=== PATIENT | female | born 1975 | race Caucasian/White ===

== ENCOUNTER 2021-03-15 10:47 | Inpatient (IN) | payer SELFPAY ==
[2021-03-15] MEDS ORDERED: Dexamethasone 10 MG/ML SDV IVPUSH ONE (11:10)
--- NOTE | 2021-03-15 11:16 | EDM.PDOC ---
ED HPI GENERAL MEDICAL PROBLEM - General Chief Complaint: Respiratory Problem Stated Complaint: covid + SOB Time Seen by Provider: 03/15/21 10:52 Source of Information: Reports: Patient History Limitations: Reports: No Limitations - History of Present Illness INITIAL COMMENTS - FREE TEXT/NARRATIVE: Patient is a 45-year-old female who tested positive for Covid about 7 days ago p resents today for increasing shortness of breath and fatigue. Says she is she is more short of breath now she is moving around outside appointment if she sitting down she is also short of breath. Denies any chest pain or cough states she had decreased p.o. intake but no nausea vomiting denies abdominal pain leg swelling. Patient states she quit smoking 3 years ago. She presented and was satting in mid 60% on room air with placed on nasal cannula and got about 90% interested nonrebreather and oxygen sat improved. - Related Data Allergies Allergy/AdvReac Type Severity Reaction Status Date / Time No Known Allergies Allergy Verified 03/15/21 11:10 Home Meds: Home Meds . [No Known Home Meds] 03/15/21 [History] ED ROS GENERAL - Review of Systems Review Of Systems: See Below Constitutional: Reports: No Symptoms HEENT: Reports: No Symptoms Respiratory: Reports: Shortness of Breath Cardiovascular: Reports: No Symptoms Endocrine: Reports: No Symptoms GI/Abdominal: Reports: No Symptoms : Reports: No Symptoms Musculoskeletal: Reports: No Symptoms Skin: Reports: No Symptoms Neurological: Reports: No Symptoms Psychiatric: Reports: No Symptoms Hematologic/Lymphatic: Reports: No Symptoms Immunologic: Reports: No Symptoms ED EXAM, GENERAL - Physical Exam Exam: See Below Exam Limited By: No Limitations General Appearance: Alert, WD/WN, No Apparent Distress Eye Exam: Bilateral Eye: EOMI, PERRL Head: Atraumatic, Normocephalic Neck: Normal Inspection Respiratory/Chest: Rhonchi, Accessory Muscle Use Cardiovascular: Normal Peripheral Pulses GI/Abdominal: Normal Bowel Sounds, Soft, Non-Tender Neurological: Alert, Oriented, Normal Cognition, Normal Gait Course - Vital Signs Last Recorded V/S: Last Vital Signs Temp 97.9 F 03/15/21 11:03 Pulse 67 03/15/21 11:03 Resp 22 H 03/15/21 11:03 BP 136/64 03/15/21 11:03 Pulse Ox 96 03/15/21 11:04 - Orders/Labs/Meds Orders: Active Orders 24 hr Category Date Time Status Ang Chest [CT] Stat Exams 03/15/21 12:31 Taken Medication Orders Remdesivir 200 mg/ Sodium (Chloride) 250 mls @ 250 mls/hr IV ONETIME ONE Stop: 03/15/21 13:59 Labs: Laboratory Tests 03/15/21 03/15/21 03/15/21 Range/Units 11:41 11:46 11:46 WBC 5.47 (4.0-11.0) K/uL RBC 4.25 L (4.30-5.90) M/uL Hgb 12.4 (12.0-16.0) g/dL Hct 36.7 (36.0-46.0) % MCV 86.4 (80.0-98.0) fL MCH 29.2 (27.0-32.0) pg MCHC 33.8 (31.0-37.0) g/dL RDW Std Deviation 44.9 (28.0-62.0) fl RDW Coeff of Sandeep 14 (11.0-15.0) % Plt Count 173 (150-400) K/uL MPV 9.30 (7.40-12.00) fL Neut % (Auto) 78.4 (48.0-80.0) % Lymph % (Auto) 17.9 (16.0-40.0) % Schleicher % (Auto) 3.5 (0.0-15.0) % Eos % (Auto) 0.0 (0.0-7.0) % Baso % (Auto) 0.2 (0.0-1.5) % Neut # (Auto) 4.3 (1.4-5.7) K/uL Lymph # (Auto) 1.0 (0.6-2.4) K/uL Schleicher # (Auto) 0.2 (0.0-0.8) K/uL Eos # (Auto) 0.0 (0.0-0.7) K/uL Baso # (Auto) 0.0 (0.0-0.1) K/uL Nucleated RBC % 0.0 /100WBC Nucleated RBCs # 0 K/uL D-Dimer, Quantitative 0.73 H (0.0-0.50) mg/L FEU Sodium (136-145) mmol/L Potassium (3.5-5.1) mmol/L Chloride (98-107) mmol/L Carbon Dioxide (21.0-32.0) mmol/L BUN (7.0-18.0) mg/dL Creatinine (0.6-1.0) mg/dL Est Cr Clr Drug Dosing mL/min Estimated GFR (MDRD) ml/min Glucose (74-106) mg/dL Calcium (8.5-10.1) mg/dL Phosphorus (2.6-4.7) mg/dL Magnesium (1.8-2.4) mg/dL Total Bilirubin (0.2-1.0) mg/dL AST (15-37) IU/L ALT (14-63) IU/L Alkaline Phosphatase (46-116) U/L Troponin I (0.000-0.056) ng/mL C-Reactive Protein (0.00-0.90) mg/dL Total Protein (6.4-8.2) g/dL Albumin (3.4-5.0) g/dL Globulin (2.6-4.0) g/dL Albumin/Globulin Ratio (0.9-1.6) Lipase (73-393) U/L SARS-CoV-2 RNA (CAIN) POSITIVE H (NEGATIVE) 03/15/21 Range/Units 11:46 WBC (4.0-11.0) K/uL RBC (4.30-5.90) M/uL Hgb (12.0-16.0) g/dL Hct (36.0-46.0) % MCV (80.0-98.0) fL MCH (27.0-32.0) pg MCHC (31.0-37.0) g/dL RDW Std Deviation (28.0-62.0) fl RDW Coeff of Sandeep (11.0-15.0) % Plt Count (150-400) K/uL MPV (7.40-12.00) fL Neut % (Auto) (48.0-80.0) % Lymph % (Auto) (16.0-40.0) % Schleicher % (Auto) (0.0-15.0) % Eos % (Auto) (0.0-7.0) % Baso % (Auto) (0.0-1.5) % Neut # (Auto) (1.4-5.7) K/uL Lymph # (Auto) (0.6-2.4) K/uL Schleicher # (Auto) (0.0-0.8) K/uL Eos # (Auto) (0.0-0.7) K/uL Baso # (Auto) (0.0-0.1) K/uL Nucleated RBC % /100WBC Nucleated RBCs # K/uL D-Dimer, Quantitative (0.0-0.50) mg/L FEU Sodium 132 L (136-145) mmol/L Potassium 3.8 (3.5-5.1) mmol/L Chloride 95 L (98-107) mmol/L Carbon Dioxide 25.8 (21.0-32.0) mmol/L BUN 8 (7.0-18.0) mg/dL Creatinine 0.7 (0.6-1.0) mg/dL Est Cr Clr Drug Dosing 77.39 mL/min Estimated GFR (MDRD) > 60.0 ml/min Glucose 111 H (74-106) mg/dL Calcium 7.7 L (8.5-10.1) mg/dL Phosphorus 3.6 (2.6-4.7) mg/dL Magnesium 2.0 (1.8-2.4) mg/dL Total Bilirubin 0.6 (0.2-1.0) mg/dL AST 73 H (15-37) IU/L ALT 60 (14-63) IU/L Alkaline Phosphatase 110 (46-116) U/L Troponin I < 0.050 (0.000-0.056) ng/mL C-Reactive Protein 11.90 H (0.00-0.90) mg/dL Total Protein 7.4 (6.4-8.2) g/dL Albumin 2.9 L (3.4-5.0) g/dL Globulin 4.5 H (2.6-4.0) g/dL Albumin/Globulin Ratio 0.6 L (0.9-1.6) Lipase 125 (73-393) U/L SARS-CoV-2 RNA (CAIN) (NEGATIVE) Meds: Medications Generic Name Dose Route Start Last Admin Trade Name Freq PRN Reason Stop Dose Admin Remdesivir 200 mg/ Sodium 250 mls @ 250 mls/hr 03/15/21 13:00 Chloride IV 03/15/21 13:59 ONETIME ONE Discontinued Medications Generic Name Dose Route Start Last Admin Trade Name Bianka PRN Reason Stop Dose Admin Dexamethasone 10 mg 03/15/21 11:10 03/15/21 11:35 Dexamethasone 10 Mg/Ml Sdv IVPUSH 03/15/21 11:11 10 mg ONETIME ONE Administration Iopamidol 100 ml 03/15/21 13:28 03/15/21 13:30 Iopamidol 755 Mg/Ml 500 Ml Multipack Bottle IVPUSH 03/15/21 13:29 100 ml ONETIME ONE Administration - Re-Assessments/Exams Free Text/Narrative Re-Assessment/Exam: 03/15/21 12:50 1 O2 sats improved on the nonrebreather. Patient given steroids and redoes Advair and will be admitted to the hospital for further care. 03/15/21 13:53 Patient will be given remdesivir patient's pain will does appear is in the wrist patient is a septic to take the medication. 03/15/21 13:53 She also started on high flow nasal cannula and satting over 95%. CT be completed results still pending will be taken to the floor. Departure - Departure Time of Disposition: 12:50 Disposition: Admitted As Inpatient 67 Condition: Good Clinical Impression: COVID, Hypoxia - Discharge Information *PRESCRIPTION DRUG MONITORING PROGRAM REVIEWED*: Not Applicable *COPY OF PRESCRIPTION DRUG MONITORING REPORT IN PATIENT KEMI: Not Applicable Critical Care Note - Critical Care Note Total Time (mins): 55 Comments: Critical Care Procedure Note Authorized and Performed by: Dr. Sanchez Total critical care time: Approximately Due to a high probability of clinically significant, life threatening deterioration, the patient required my highest level of preparedness to intervene emergently and I personally spent this critical care time directly and personally managing the patient. This critical care time included obtaining a history; examining the patient; pulse oximetry; ordering and review of studies; arranging urgent treatment with development of a management plan; evaluation of patient's response to treatment; frequent reassessment; and, discussions with other providers. This critical care time was performed to assess and manage the high probability of imminent, life-threatening deterioration that could result in multi-organ failure. It was exclusive of separately billable procedures and treating other patients and teaching time. Sepsis Event Note (ED) - Focused Exam Vital Signs: Vital Signs Temp Pulse Resp BP Pulse Ox 03/15/21 11:04 96 03/15/21 11:03 97.9 F 67 22 H 136/64 88 L - My Orders Last 24 Hours: My Active Orders 03/15/21 12:31 Ang Chest [CT] Stat - Assessment/Plan Last 24 Hours: My Active Orders 03/15/21 12:31 Ang Chest [CT] Stat Plan: Patient is a 45-year-old female who presents for increasing shortness of breath. Patient tested positive Covid a few days ago and symptoms have been worsening. Patient is satting 60% on room air will place on nonrebreather and likely admit will give Decadron labs x-ray and reassess.
--- NOTE | 2021-03-15 12:25 | CR ---
INDICATION: Hypoxia TECHNIQUE: Chest 1 view COMPARISON: None FINDINGS: Cardiovascular and mediastinum: Heart size and vasculature are normal in caliber and appearance. Lungs and pleural spaces: Diffuse bilateral ill-defined pulmonary infiltrates present. No significant effusion and no pneumothorax. Bones and soft tissues: No significant findings. IMPRESSION: Severe diffuse bilateral pneumonia and/or pulmonary edema. COVID pneumonitis is not definite but possible. Dictated by Edu Barclay MD @ 03/15/2021 12:25:[address] Edu Barclay @ Mar 15 2021 12:25PM
[2021-03-15 12:29] LABS: BLOOD UREA NITROGEN,BUN 8 mg/dL (7.0-18.0); CARBON DIOXIDE,CO2 25.8 mmol/L (21.0-32.0); CHLORIDE,CL 95 mmol/L (98-107); GLUCOSE RANDOM 111 mg/dL (74-106); LIPASE 125 U/L (73-393); POTASSIUM,K 3.8 mmol/L (3.5-5.1); SODIUM,NA 132 mmol/L (136-145)
[2021-03-15] MEDS ORDERED: REMDESIVIR 200 MG in Sodium Chloride 0.9% 250 ML IV ONE ×2 (12:53→13:00)
[2021-03-15] MEDS ORDERED: Iopamidol 755 MG/ML 500 ML Multipack Bottle IVPUSH ONE (13:28)
[2021-03-15] MEDS ORDERED: Ondansetron 4 MG/2 ML SDV IVPUSH PRN (14:00)
[2021-03-15 14:01] LABS: BLOOD UREA NITROGEN,BUN 9 mg/dL (7.0-18.0); CARBON DIOXIDE,CO2 25.5 mmol/L (21.0-32.0); CHLORIDE,CL 97 mmol/L (98-107); GLUCOSE RANDOM 121 mg/dL (74-106); POTASSIUM,K 4.1 mmol/L (3.5-5.1); SODIUM,NA 133 mmol/L (136-145)
--- NOTE | 2021-03-15 14:03 | CT ---
INDICATION: Elevated D-dimer. Dyspnea. COVID-19 positive. TECHNIQUE: CT chest PE was acquired with 100 cc Isovue 370 IV contrast. COMPARISON: None. FINDINGS: Heart and vasculature: Contrast opacification of the pulmonary arterial tree is adequate. No sign of pulmonary embolism. Heart size is normal. Thoracic aorta and pulmonary artery are normal in caliber. Lungs and pleural: There are large diffuse bilateral ground-glass infiltrates. No pleural effusions, pleural thickening, or pneumothorax. Lymph nodes/mediastinum: No mediastinal, hilar, or axillary adenopathy. Chest wall: No masses. Upper abdomen: Normal. Bones: Unremarkable for age. IMPRESSION: 1. No pulmonary embolism. 2. Severe COVID-19 pneumonitis. Please note that all CT scans at this facility use dose modulation, iterative reconstruction, and/or weight-based dosing when appropriate to reduce radiation dose to as low as reasonably achievable. Dictated by Edu Barclay MD @ 03/15/2021 2:01:[address] Edu Barclay @ Mar 15 2021 2:01PM
[2021-03-15] MEDS ORDERED: Sodium Chloride 0.9% 2.5 ML Syringe FLUSH PRN (14:36)
--- NOTE | 2021-03-15 14:43 | PCM.HP.2 ---
H&P History of Present Illness - General Date of Service: 03/15/21 Admit Problem/Dx: Admission Diagnosis/Problem Admission Diagnosis/Problem Hypoxia Source of Information: Patient History Limitations: Reports: No Limitations - History of Present Illness Initial Comments - Free Text/Narative: This 45-year-old female with past medical history of perforated gastric ulcer with subsequent abdominal surgeries including mesh repair and hernia repair along with morbid obesity presented to the ER today with increasing shortness of breath and fatigue. She reports she tested positive for COVID-19 approximately 7 days ago. She reports that initially the illness started with sore throat sinus congestion and otherwise just not feeling well. She reports that she has progressively worsened and becoming more more short of breath and that moving outside is extremely difficult due to shortness of breath. She denies any chest pain reports intermittent cough with no sputum production. She reports she is not eating or drinking well due to loss of smell and taste and appetite. She denies any nausea or vomiting no abdominal pain. She denies any extremity swelling or pain. She reports intermittent fevers and chills. She denies being vaccinated for COVID-19. She reports quit smoking approximately 3 years ago denies any alcohol use and no recreational drug use. In the ER, she was noted to be satting 60% on room air on arrival she was placed on nasal cannula and sats slowly increased to 70 and 80%. She was then increased to nonrebreather and oxygen saturations finally reached above 90%. Lab work reveals no leukocytosis hemoglobin 12.4 platelets 173,000. D-dimer mildly elevated at 0.73. Sodium 132 chloride 95 BUN and creatinine 8 and 0.7 respectively. Glucose 111 AST 73 ALT 60 alk phos 110 we will monitor these closely during treatment. Troponin negative CRP 11.9 COVID-19 swab positive. Chest x-ray obtained in the ER which reveals severe diffuse bilateral pneumonia and/or pulmonary edema Covid pneumonitis is not definite but possible CT angio obtained due to mildly elevated D-dimer and Covid positive no pulmonary embolism noted severe COVID-19 pneumonitis noted. Patient was treated with dexamethasone 10 mg IV in the ER along with remdesivir 200 mg. Patient will be admitted inpatient for acute hypoxic respiratory failure COVID-19 and viral pneumonia. - Related Data Allergies/Adverse Reactions: Allergies Allergy/AdvReac Type Severity Reaction Status Date / Time No Known Allergies Allergy Verified 03/15/21 11:10 Home Medications: Home Meds . [No Known Home Meds] 03/15/21 [History] Past Medical History HEENT History: Reports: None Cardiovascular History: Reports: None. Denies: Afib, Blood Clots/VTE/DVT, CAD, High Cholesterol, ND Respiratory History: Reports: None. Denies: Asthma, COPD Gastrointestinal History: Reports: PUD Genitourinary History: Reports: None [employer] History: Reports: None Musculoskeletal History: Reports: None Neurological History: Reports: None. 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 Dermatologic History: Reports: None - Infectious Disease History Infectious Disease History: Reports: None - Past Surgical History Head Surgeries/Procedures: Reports: None HEENT Surgical History: Reports: None GI Surgical History: Reports: Other (See Below) (Perforated gastric ulcer with subsequent hernia repairs x3 multiple mesh placement and final removal.) Female Surgical History: Reports: Section (x3) Social & Family History - Family History Family Medical History: No Pertinent Family History - Tobacco Use Tobacco Use Status *Q: Former Tobacco User Used Tobacco, but Quit: Yes Month/Year Tobacco Last Used: 4 years - Caffeine Use Caffeine Use: Reports: None - Alcohol Use Alcohol Use History: No - Recreational Drug Use Recreational Drug Use: No H&P Review of Systems - Review of Systems: Review Of Systems: See Below General: Reports: Chills, Malaise, Weakness, Fatigue, Decreased Appetite HEENT: Reports: Headaches, Sore Throat Pulmonary: Reports: Shortness of Breath Cardiovascular: Reports: Dyspnea on Exertion. Denies: Chest Pain Gastrointestinal: Reports: Decreased Appetite. Denies: Abdominal Pain, Nausea, Vomiting Genitourinary: Reports: No Symptoms. Denies: Dysuria, Frequency, Burning Musculoskeletal: Reports: No Symptoms Skin: Reports: No Symptoms Psychiatric: Reports: No Symptoms Neurological: Reports: No Symptoms Hematologic/Lymphatic: Reports: No Symptoms Immunologic: Reports: No Symptoms Exam - Exam Exam: See Below - Vital Signs Vital Signs: Last Vital Signs Temp 97.9 F 03/15/21 11:03 Pulse 67 03/15/21 11:03 Resp 22 H 03/15/21 11:03 BP 136/64 03/15/21 11:03 Pulse Ox 96 03/15/21 11:04 Weight: 160.572 kg - Exam Quality Assessment: Supplemental Oxygen, DVT Prophylaxis General: Alert, Oriented, Cooperative HEENT: Conjunctiva Clear, Mucosa Moist & Sallis, Posterior Pharynx Clear Lungs: Decreased Breath Sounds, Crackles. No: Normal Respiratory Effort (Dyspnea noted on speech and exertion) Cardiovascular: Regular Rate, Regular Rhythm, Normal S1, Normal S2. No: Systolic Murmur GI/Abdominal Exam: Normal Bowel Sounds, Soft, Non-Tender, Other (Large obese abdomen with hernias present makes difficult assessment) Back Exam: Normal Inspection, Full Range of Motion Extremities: Normal Inspection, Normal Range of Motion, Non-Tender, Pedal Edema (+2 edema to lower extremities reports this is baseline) Skin: Warm, Dry Neuro Extensive - Mental Status: Alert, Oriented x3 Neuro Extensive - Motor, Sensory, Reflexes: CN II-XII Intact Psychiatric: Alert, Normal Affect, Normal Mood - Patient Data Lab Results Last 24 hrs: Laboratory Results - last 24 hr 03/15/21 03/15/21 03/15/21 Range/Units 11:41 11:46 11:46 WBC 5.47 (4.0-11.0) K/uL RBC 4.25 L (4.30-5.90) M/uL Hgb 12.4 (12.0-16.0) g/dL Hct 36.7 (36.0-46.0) % MCV 86.4 (80.0-98.0) fL MCH 29.2 (27.0-32.0) pg MCHC 33.8 (31.0-37.0) g/dL RDW Std Deviation 44.9 (28.0-62.0) fl RDW Coeff of Sandeep 14 (11.0-15.0) % Plt Count 173 (150-400) K/uL MPV 9.30 (7.40-12.00) fL Neut % (Auto) 78.4 (48.0-80.0) % Lymph % (Auto) 17.9 (16.0-40.0) % [place] % (Auto) 3.5 (0.0-15.0) % Eos % (Auto) 0.0 (0.0-7.0) % Baso % (Auto) 0.2 (0.0-1.5) % Neut # (Auto) 4.3 (1.4-5.7) K/uL Lymph # (Auto) 1.0 (0.6-2.4) K/uL [place] # (Auto) 0.2 (0.0-0.8) K/uL Eos # (Auto) 0.0 (0.0-0.7) K/uL Baso # (Auto) 0.0 (0.0-0.1) K/uL Nucleated RBC % 0.0 /100WBC Nucleated RBCs # 0 K/uL D-Dimer, Quantitative 0.73 H (0.0-0.50) mg/L FEU Sodium (136-145) mmol/L Potassium (3.5-5.1) mmol/L Chloride (98-107) mmol/L Carbon Dioxide (21.0-32.0) mmol/L BUN (7.0-18.0) mg/dL Creatinine (0.6-1.0) mg/dL Est Cr Clr Drug Dosing mL/min Estimated GFR (MDRD) ml/min Glucose (74-106) mg/dL Calcium (8.5-10.1) mg/dL Phosphorus (2.6-4.7) mg/dL Magnesium (1.8-2.4) mg/dL Total Bilirubin (0.2-1.0) mg/dL Direct Bilirubin (0.0-0.5) mg/dL AST (15-37) IU/L ALT (14-63) IU/L Alkaline Phosphatase (46-116) U/L Troponin I (0.000-0.056) ng/mL C-Reactive Protein (0.00-0.90) mg/dL Total Protein (6.4-8.2) g/dL Albumin (3.4-5.0) g/dL Globulin (2.6-4.0) g/dL Albumin/Globulin Ratio (0.9-1.6) Lipase (73-393) U/L SARS-CoV-2 RNA (CAIN) POSITIVE H (NEGATIVE) 03/15/21 03/15/21 Range/Units 11:46 13:34 WBC (4.0-11.0) K/uL RBC (4.30-5.90) M/uL Hgb (12.0-16.0) g/dL Hct (36.0-46.0) % MCV (80.0-98.0) fL MCH (27.0-32.0) pg MCHC (31.0-37.0) g/dL RDW Std Deviation (28.0-62.0) fl RDW Coeff of Sandeep (11.0-15.0) % Plt Count (150-400) K/uL MPV (7.40-12.00) fL Neut % (Auto) (48.0-80.0) % Lymph % (Auto) (16.0-40.0) % [place] % (Auto) (0.0-15.0) % Eos % (Auto) (0.0-7.0) % Baso % (Auto) (0.0-1.5) % Neut # (Auto) (1.4-5.7) K/uL Lymph # (Auto) (0.6-2.4) K/uL [place] # (Auto) (0.0-0.8) K/uL Eos # (Auto) (0.0-0.7) K/uL Baso # (Auto) (0.0-0.1) K/uL Nucleated RBC % /100WBC Nucleated RBCs # K/uL D-Dimer, Quantitative (0.0-0.50) mg/L FEU Sodium 132 L 133 L (136-145) mmol/L Potassium 3.8 4.1 (3.5-5.1) mmol/L Chloride 95 L 97 L (98-107) mmol/L Carbon Dioxide 25.8 25.5 (21.0-32.0) mmol/L BUN 8 9 (7.0-18.0) mg/dL Creatinine 0.7 0.8 (0.6-1.0) mg/dL Est Cr Clr Drug Dosing 77.39 67.72 mL/min Estimated GFR (MDRD) > 60.0 > 60.0 ml/min Glucose 111 H 121 H (74-106) mg/dL Calcium 7.7 L 8.0 L (8.5-10.1) mg/dL Phosphorus 3.6 (2.6-4.7) mg/dL Magnesium 2.0 (1.8-2.4) mg/dL Total Bilirubin 0.6 0.7 (0.2-1.0) mg/dL Direct Bilirubin 0.20 (0.0-0.5) mg/dL AST 73 H 76 H (15-37) IU/L ALT 60 62 (14-63) IU/L Alkaline Phosphatase 110 122 H (46-116) U/L Troponin I < 0.050 (0.000-0.056) ng/mL C-Reactive Protein 11.90 H (0.00-0.90) mg/dL Total Protein 7.4 7.9 (6.4-8.2) g/dL Albumin 2.9 L 3.1 L (3.4-5.0) g/dL Globulin 4.5 H 4.8 H (2.6-4.0) g/dL Albumin/Globulin Ratio 0.6 L 0.7 L (0.9-1.6) Lipase 125 (73-393) U/L SARS-CoV-2 RNA (CAIN) (NEGATIVE) Result Diagrams: 03/15/21 11:46 03/15/21 13:34 Sepsis Event Note - Focused Exam Vital Signs: Vital Signs Temp Pulse Resp BP Pulse Ox 03/15/21 11:04 96 03/15/21 11:03 97.9 F 67 22 H 136/64 88 L - Problem List (1) Acute respiratory failure with hypoxia SNOMED Code(s): 27209502, 485615316 ICD Code: J96.01 - ACUTE RESPIRATORY FAILURE WITH HYPOXIA Status: Acute Current Visit: Yes (2) COVID-19 SNOMED Code(s): 051954157 ICD Code: U07.1 - COVID-19 Status: Acute Current Visit: Yes (3) Viral pneumonia SNOMED Code(s): 15574305 ICD Code: J12.9 - VIRAL PNEUMONIA, UNSPECIFIED Status: Acute Current Visi t: Yes (4) Morbid obesity with BMI of 60.0-69.9, adult SNOMED Code(s): 036838701, 73523078887429 ICD Code: E66.01 - MORBID (SEVERE) OBESITY DUE TO EXCESS CALORIES; Z68.44 - BODY MASS INDEX [BMI] 60.0-69.9, ADULT Status: Chronic Current Visit: Yes (5) History of tobacco use SNOMED Code(s): 619824014 ICD Code: Z87.891 - PERSONAL HISTORY OF NICOTINE DEPENDENCE Status: Chronic Current Visit: Yes Problem List Initiated/Reviewed/Updated: Yes Orders Last 24hrs: Active Orders 24 hr Category Date Time Status Patient Status [ADT] Routine ADT 03/15/21 12:49 Active Communication Order [RC] ROUTINE Care 03/15/21 14:41 Active Intake and Output [RC] QSHIFT Care 03/15/21 14:36 Active Oxygen Therapy [RC] PRN Care 03/15/21 14:36 Active Pulse Oximetry [RC] CONTINUOUS Care 03/15/21 14:36 Active RT Incentive Spirometry [RC] Q1HWA Care 03/15/21 14:39 Active RT Post Treatment Assessment [RC] Click to Edit Care 03/15/21 14:39 Active RT Pre-Treatment Assessment [RC] Click to Edit Care 03/15/21 14:39 Active Up With Assistance [RC] ASDIRECTED Care 03/15/21 14:36 Active VTE/DVT Education [RC] PER UNIT ROUTINE Care 03/15/21 14:36 Active Vital Signs [RC] Q4H Care 03/15/21 14:36 Active Regular Diet [DIET] Diet 03/15/21 Lunch Active CBC WITH AUTO DIFF [HEME] AM Lab 03/16/21 05:11 Ordered COMPREHENSIVE METABOLIC PN,CMP [CHEM] AM Lab 03/16/21 05:11 Ordered Acetaminophen [TylenoL] Med 03/15/21 14:36 Ordered 650 mg PO Q4H PRN Albuterol/Ipratropium [Combivent Respimat] Med 03/15/21 18:00 Ordered See Dose Instructions INH Q4HRRT Enoxaparin [Lovenox] Med 03/15/21 21:00 Ordered 40 mg SUBCUT Q12HR Non-Formulary Medication [NF Drug] Med 03/15/21 14:45 Ordered 1 each PO DAILY Ondansetron [Zofran] Med 03/15/21 14:36 Ordered 4 mg IVPUSH Q4H PRN Remdesivir 100 mg Med 03/16/21 13:00 Ordered Sodium Chloride 0.9% [Normal Saline] 100 ml IV Q24H Sodium Chloride 0.9% [Saline Flush] Med 03/15/21 14:36 Ordered 2.5 ml FLUSH ASDIRECTED PRN dexAMETHasone Med 03/16/21 09:00 Ordered 6 mg PO DAILY RT Oxygen High Flow [RESPCARE] Stat Oth 03/15/21 12:51 Active Saline Lock Insert [OM.PC] Routine Oth 03/15/21 14:36 Ordered Resuscitation Status Routine Resus Stat 03/15/21 14:36 Ordered Medication Orders Acetaminophen (Acetaminophen 325 Mg Tab) 650 mg PO Q4H PRN PRN Reason: Pain (Mild 1-3)/fever Albuterol/Ipratropium (Albuterol/Ipratropium 4 Gm Inhalation [place]) 0 gm INH Q4HRRT [place] Dexamethasone (Dexamethasone 4 Mg Tab) 6 mg PO DAILY [place] Enoxaparin Sodium (Enoxaparin 40 Mg/0.4 Ml Syringe) 40 mg SUBCUT Q12HR [place] Remdesivir 100 mg/ Sodium (Chloride) 100 mls @ 100 mls/hr IV Q24H [place] Stop: 03/19/21 13:59 Non-Formulary Medication (Non-Formulary Medication 1 Each) 1 each PO DAILY [place] Ondansetron HCl (Ondansetron 4 Mg/2 Ml Sdv) 4 mg IVPUSH Q4H PRN PRN Reason: Nausea Sodium Chloride (Sodium Chloride 0.9% 2.5 Ml Syringe) 2.5 ml FLUSH ASDIRECTED PRN PRN Reason: Keep Vein Open Assessment/Plan Comment:: This 45-year-old female admitted with acute hypoxic respiratory failure, COVID- 19, and viral pneumonia 1. Acute hypoxic respiratory failure/COVID-19/viral pneumonia -Oxygen to keep sats greater than 92% wean as possible -Continue Vapotherm at this time monitor oxygen sats closely -Continuous pulse ox -Combivent 2 puffs every 4 hours -Remdesivir 100 g IV daily x4 more days -Dexamethasone 6 mg p.o. daily -Encourage I-S use along with self proning -Lovenox -Will start Baricitinib 4 mg po daily - Monitor LFTs with remdesivir and Baricitinib therapies -Robitussin and Tessalon Perles as needed cough -Supportive care as needed VTE prophylaxis: Lovenox twice daily due to elevated BMI GI prophylaxis: Protonix CODE STATUS: Full code Dispo: Pending improvement likely greater than 2 midnights
[2021-03-15] MEDS: Albuterol/Ipratropium 4 GM Inhalation Spray INH SCH ×3 (15:30→21:06)
[2021-03-15] MEDS: Acetaminophen 325 MG Tab PO PRN (16:09)
[2021-03-15] MEDS: Enoxaparin 40 MG/0.4 ML Syringe SUBCUT SCH (20:49)
--- NOTE | 2021-03-16 01:03 | PCM.SN.2 ---
- Free Text/Narrative Note: Patient desating to mid 80s on heated high flow. RR 30s. Patient was transferred to ICU for closer monitoring. Since transfer patient is now satting 98%. Will titrate O2 accordingly and encourage proning.
[2021-03-16] MEDS: Albuterol/Ipratropium 4 GM Inhalation Spray INH SCH ×6 (01:44→21:15)
[2021-03-16] MEDS: Codeine/guaiFENesin 10-100 MG/5 ML Syrup 5 ML Cup PO PRN ×4 (04:33→23:16)
[2021-03-16 06:52] LABS: BLOOD UREA NITROGEN,BUN 10 mg/dL (7.0-18.0); CARBON DIOXIDE,CO2 32.2 mmol/L (21.0-32.0); CHLORIDE,CL 100 mmol/L (98-107); GLUCOSE RANDOM 133 mg/dL (74-106); POTASSIUM,K 4.2 mmol/L (3.5-5.1); SODIUM,NA 137 mmol/L (136-145)
[2021-03-16] MEDS: Enoxaparin 40 MG/0.4 ML Syringe SUBCUT SCH ×2 (08:03→20:00)
[2021-03-16] MEDS: REMDESIVIR 100 MG in Sodium Chloride 0.9% 100 ML IV SCH (13:18)
[2021-03-16] MEDS: Dexamethasone 4 MG Tab PO SCH (13:19)
--- NOTE | 2021-03-16 15:54 | PCM.PN ---
- General Info Date of Service: 03/16/21 - Review of Systems Systems Review Comment:: shortness of breath is a little bit better today - Patient Data Vitals - Most Recent: Last Vital Signs Temp 36.6 C 03/16/21 12:00 Pulse 81 03/16/21 07:00 Resp 25 H 03/16/21 15:00 BP 129/64 03/16/21 15:00 Pulse Ox 100 03/16/21 15:00 Weight - Most Recent: 158.712 kg I&O - Last 24 Hours: Intake & Output 03/16/21 03/16/21 03/16/21 06:59 14:59 22:59 Intake Total 800 100 Output Total 500 Balance 300 100 Lab Results Last 24 Hours: Laboratory Results - last 24 hr 03/16/21 03/16/21 Range/Units 05:50 05:50 WBC 4.84 (4.0-11.0) K/uL RBC 4.36 (4.30-5.90) M/uL Hgb 12.5 (12.0-16.0) g/dL Hct 38.1 (36.0-46.0) % MCV 87.4 (80.0-98.0) fL MCH 28.7 (27.0-32.0) pg MCHC 32.8 (31.0-37.0) g/dL RDW Std Deviation 46.0 (28.0-62.0) fl RDW Coeff of Sandeep 14 (11.0-15.0) % Plt Count 189 (150-400) K/uL MPV 9.90 (7.40-12.00) fL Neut % (Auto) 70.2 (48.0-80.0) % Lymph % (Auto) 24.8 (16.0-40.0) % [place] % (Auto) 4.8 (0.0-15.0) % Eos % (Auto) 0.0 (0.0-7.0) % Baso % (Auto) 0.2 (0.0-1.5) % Neut # (Auto) 3.4 (1.4-5.7) K/uL Lymph # (Auto) 1.2 (0.6-2.4) K/uL [place] # (Auto) 0.2 (0.0-0.8) K/uL Eos # (Auto) 0.0 (0.0-0.7) K/uL Baso # (Auto) 0.0 (0.0-0.1) K/uL Nucleated RBC % 0.0 /100WBC Nucleated RBCs # 0 K/uL Sodium 137 (136-145) mmol/L Potassium 4.2 (3.5-5.1) mmol/L Chloride 100 (98-107) mmol/L Carbon Dioxide 32.2 H (21.0-32.0) mmol/L BUN 10 (7.0-18.0) mg/dL Creatinine 0.6 (0.6-1.0) mg/dL Est Cr Clr Drug Dosing 90.29 mL/min Estimated GFR (MDRD) > 60.0 ml/min Glucose 133 H (74-106) mg/dL Calcium 7.9 L (8.5-10.1) mg/dL Total Bilirubin 0.4 (0.2-1.0) mg/dL AST 71 H (15-37) IU/L ALT 58 (14-63) IU/L Alkaline Phosphatase 113 (46-116) U/L Total Protein 7.4 (6.4-8.2) g/dL Albumin 2.8 L (3.4-5.0) g/dL Globulin 4.6 H (2.6-4.0) g/dL Albumin/Globulin Ratio 0.6 L (0.9-1.6) Med Orders - Current: Current Medications Acetaminophen (Acetaminophen 325 Mg Tab) 650 mg PO Q4H PRN PRN Reason: Pain (Mild 1-3)/fever Last Admin: 03/15/21 16:09 Dose: 650 mg Documented by: Albuterol/Ipratropium (Albuterol/Ipratropium 4 Gm Inhalation [place]) 0 gm INH Q4HRRT [facility] Last Admin: 03/16/21 13:46 Dose: 2 puff Documented by: Dexamethasone (Dexamethasone 4 Mg Tab) 6 mg PO DAILY@1400 [facility] Last Admin: 03/16/21 13:19 Dose: 6 mg Documented by: Enoxaparin Sodium (Enoxaparin 40 Mg/0.4 Ml Syringe) 40 mg SUBCUT Q12HR [facility] Last Admin: 03/16/21 08:03 Dose: 40 mg Documented by: Guaifenesin/Codeine Phosphate (Codeine/Guaifenesin 10-100 Mg/5 Ml Syrup 5 Ml Cup) 5 ml PO Q6H PRN PRN Reason: Cough Stop: 03/19/21 04:20 Last Admin: 03/16/21 10:34 Dose: 5 ml Documented by: Remdesivir 100 mg/ Sodium (Chloride) 100 mls @ 100 mls/hr IV Q24H [place] Stop: 03/19/21 14:59 Last Admin: 03/16/21 13:18 Dose: 100 mls/hr Documented by: Ondansetron HCl (Ondansetron 4 Mg/2 Ml Sdv) 4 mg IVPUSH Q4H PRN PRN Reason: Nausea Sodium Chloride (Sodium Chloride 0.9% 2.5 Ml Syringe) 2.5 ml FLUSH ASDIRECTED PRN PRN Reason: Keep Vein Open Discontinued Medications Dexamethasone (Dexamethasone 10 Mg/Ml Sdv) 10 mg IVPUSH ONETIME ONE Stop: 03/15/21 11:11 Last Admin: 03/15/21 11:35 Dose: 10 mg Documented by: Remdesivir 200 mg/ Sodium (Chloride) 250 mls @ 250 mls/hr IV ONETIME ONE Stop: 03/15/21 13:59 Last Admin: 03/15/21 14:28 Dose: 250 mls/hr Documented by: Iopamidol (Iopamidol 755 Mg/Ml 500 Ml Multipack Bottle) 100 ml IVPUSH ONETIME ONE Stop: 03/15/21 13:29 Last Admin: 03/15/21 13:30 Dose: 100 ml Documented by: - Exam General: Alert, Oriented Lungs: Normal Respiratory Effort, Rhonchi Cardiovascular: Regular Rate, Regular Rhythm GI/Abdominal Exam: Normal Bowel Sounds, Soft, Non-Tender Extremities: Non-Tender, No Pedal Edema Skin: Warm, Dry, Intact Neurological: No New Focal Deficit - Patient Data Lab Results Last 24 hrs: Laboratory Results - last 24 hr 03/16/21 03/16/21 Range/Units 05:50 05:50 WBC 4.84 (4.0-11.0) K/uL RBC 4.36 (4.30-5.90) M/uL Hgb 12.5 (12.0-16.0) g/dL Hct 38.1 (36.0-46.0) % MCV 87.4 (80.0-98.0) fL MCH 28.7 (27.0-32.0) pg MCHC 32.8 (31.0-37.0) g/dL RDW Std Deviation 46.0 (28.0-62.0) fl RDW Coeff of Sandeep 14 (11.0-15.0) % Plt Count 189 (150-400) K/uL MPV 9.90 (7.40-12.00) fL Neut % (Auto) 70.2 (48.0-80.0) % Lymph % (Auto) 24.8 (16.0-40.0) % [place] % (Auto) 4.8 (0.0-15.0) % Eos % (Auto) 0.0 (0.0-7.0) % Baso % (Auto) 0.2 (0.0-1.5) % Neut # (Auto) 3.4 (1.4-5.7) K/uL Lymph # (Auto) 1.2 (0.6-2.4) K/uL [place] # (Auto) 0.2 (0.0-0.8) K/uL Eos # (Auto) 0.0 (0.0-0.7) K/uL Baso # (Auto) 0.0 (0.0-0.1) K/uL Nucleated RBC % 0.0 /100WBC Nucleated RBCs # 0 K/uL Sodium 137 (136-145) mmol/L Potassium 4.2 (3.5-5.1) mmol/L Chloride 100 (98-107) mmol/L Carbon Dioxide 32.2 H (21.0-32.0) mmol/L BUN 10 (7.0-18.0) mg/dL Creatinine 0.6 (0.6-1.0) mg/dL Est Cr Clr Drug Dosing 90.29 mL/min Estimated GFR (MDRD) > 60.0 ml/min Glucose 133 H (74-106) mg/dL Calcium 7.9 L (8.5-10.1) mg/dL Total Bilirubin 0.4 (0.2-1.0) mg/dL AST 71 H (15-37) IU/L ALT 58 (14-63) IU/L Alkaline Phosphatase 113 (46-116) U/L Total Protein 7.4 (6.4-8.2) g/dL Albumin 2.8 L (3.4-5.0) g/dL Globulin 4.6 H (2.6-4.0) g/dL Albumin/Globulin Ratio 0.6 L (0.9-1.6) Result Diagrams: 03/16/21 05:50 03/16/21 05:50 Sepsis Event Note - Evaluation Sepsis Screening Result: Possible Sepsis Risk - Focused Exam Vital Signs: Vital Signs Temp Pulse Resp BP Pulse Ox 03/16/21 15:00 25 H 129/64 100 03/16/21 14:36 100 03/16/21 14:00 30 H 129/72 99 03/16/21 13:00 17 112/63 93 L 03/16/21 12:00 36.6 C 23 H 125/74 96 03/16/21 11:00 23 H 121/65 96 03/16/21 10:00 19 119/65 96 03/16/21 09:00 25 H 112/70 96 03/16/21 08:00 36.6 C 22 H 106/64 95 03/16/21 07:00 81 43 H 111/66 95 03/16/21 06:00 84 26 H 114/62 94 L 03/16/21 05:00 89 15 132/79 96 03/16/21 04:45 87 L 03/16/21 04:00 36.6 C 72 22 H 111/36 L 97 - Problem List Review Problem List Initiated/Reviewed/Updated: Yes - My Orders Last 24 Hours: My Active Orders 03/16/21 00:04 Transfer Patient (Change bed) [ADT] Routine - Plan Plan:: This 45-year-old female admitted with acute hypoxic respiratory failure, COVID- 19, and viral pneumonia 1. Acute hypoxic respiratory failure/COVID-19/viral pneumonia -Oxygen to keep sats greater than 92% wean as possible -Continue heated high flow at this time, monitor oxygen sats closely -Combivent 2 puffs every 4 hours -Remdesivir 100 g IV daily x4 more days -Dexamethasone 6 mg p.o. daily -Encourage I-S use along with self proning -Lovenox -Will start Baricitinib 4 mg po daily - Monitor LFTs with remdesivir and Baricitinib therapies -Robitussin and Tessalon Perles as needed cough -Supportive care as needed VTE prophylaxis: Lovenox twice daily due to elevated BMI GI prophylaxis: Protonix CODE STATUS: Full code Dispo: Pending improvement
[2021-03-17] MEDS: Albuterol/Ipratropium 4 GM Inhalation Spray INH SCH ×6 (02:09→23:10)
[2021-03-17] MEDS: Benzonatate 100 MG Cap PO PRN ×3 (03:28→13:59)
[2021-03-17 07:50] LABS: BLOOD UREA NITROGEN,BUN 12 mg/dL (7.0-18.0); CHLORIDE,CL 100 mmol/L (98-107); GLUCOSE RANDOM 120 mg/dL (74-106); POTASSIUM,K 4.5 mmol/L (3.5-5.1); SODIUM,NA 137 mmol/L (136-145)
[2021-03-17] MEDS: Enoxaparin 40 MG/0.4 ML Syringe SUBCUT SCH ×2 (08:41→20:41)
[2021-03-17] MEDS: Codeine/guaiFENesin 10-100 MG/5 ML Syrup 5 ML Cup PO PRN (08:52)
[2021-03-17] MEDS: Dexamethasone 4 MG Tab PO SCH (13:58)
[2021-03-17] MEDS: REMDESIVIR 100 MG in Sodium Chloride 0.9% 100 ML IV SCH (13:59)
--- NOTE | 2021-03-17 16:25 | PCM.PN ---
- General Info Date of Service: 03/17/21 Admission Dx/Problem (Free Text): Admission Diagnosis/Problem Admission Diagnosis/Problem Hypoxia Subjective Update: Patient seen at bedside, resting comfortably, has been eating well, shortness of breath is getting better Functional Status: Reports: Pain Controlled, Tolerating Diet, Urinating. Meet es: Ambulating - Review of Systems General: Reports: Weakness, Fatigue. Denies: Fever Pulmonary: Reports: Shortness of Breath, Cough, Sputum. Denies: Pleuritic Chest Pain Cardiovascular: Reports: Dyspnea on Exertion. Denies: Chest Pain, Palpitations Gastrointestinal: Denies: Abdominal Pain, Constipation, Decreased Appetite Genitourinary: Denies: Dysuria, Frequency Musculoskeletal: Denies: Neck Pain, Shoulder Pain, Hand Pain Skin: Denies: Cyanosis, Jaundice, Mottled Neurological: Denies: Confusion, Dizziness, Headache - Patient Data Vitals - Most Recent: Last Vital Signs Temp 36.6 C 03/17/21 16:00 Pulse 81 03/16/21 07:00 Resp 25 H 03/17/21 16:00 BP 129/74 03/17/21 16:00 Pulse Ox 96 03/17/21 16:00 Weight - Most Recent: 156.217 kg I&O - Last 24 Hours: Intake & Output 03/17/21 03/17/21 03/17/21 06:59 14:59 22:59 Intake Total 400 100 Output Total 1279 Balance -879 100 Lab Results Last 24 Hours: Laboratory Results - last 24 hr 03/17/21 03/17/21 Range/Units 07:30 07:30 WBC 7.09 (4.0-11.0) K/uL RBC 4.34 (4.30-5.90) M/uL Hgb 12.6 (12.0-16.0) g/dL Hct 38.2 (36.0-46.0) % MCV 88.0 (80.0-98.0) fL MCH 29.0 (27.0-32.0) pg MCHC 33.0 (31.0-37.0) g/dL RDW Std Deviation 47.1 (28.0-62.0) fl RDW Coeff of Sandeep 15 (11.0-15.0) % Plt Count 221 (150-400) K/uL MPV 9.50 (7.40-12.00) fL Nucleated RBC % 0.0 /100WBC Nucleated RBCs # 0 K/uL Sodium 137 (136-145) mmol/L Potassium 4.5 (3.5-5.1) mmol/L Chloride 100 (98-107) mmol/L Carbon Dioxide 30.0 (21.0-32.0) mmol/L BUN 12 (7.0-18.0) mg/dL Creatinine 0.6 (0.6-1.0) mg/dL Est Cr Clr Drug Dosing 90.29 mL/min Estimated GFR (MDRD) > 60.0 ml/min Glucose 120 H (74-106) mg/dL Calcium 7.8 L (8.5-10.1) mg/dL Med Orders - Current: Current Medications Acetaminophen (Acetaminophen 325 Mg Tab) 650 mg PO Q4H PRN PRN Reason: Pain (Mild 1-3)/fever Last Admin: 03/15/21 16:09 Dose: 650 mg Documented by: Albuterol/Ipratropium (Albuterol/Ipratropium 4 Gm Inhalation [place]) 0 gm INH Q4HRRT [facility] Last Admin: 03/17/21 13:58 Dose: 2 puff Documented by: Benzonatate (Benzonatate 100 Mg Cap) 100 mg PO Q4H PRN PRN Reason: cough Last Admin: 03/17/21 13:59 Dose: 100 mg Documented by: Dexamethasone (Dexamethasone 4 Mg Tab) 6 mg PO DAILY@1400 [facility] Last Admin: 03/17/21 13:58 Dose: 6 mg Documented by: Enoxaparin Sodium (Enoxaparin 40 Mg/0.4 Ml Syringe) 40 mg SUBCUT Q12HR [facility] Last Admin: 03/17/21 08:41 Dose: 40 mg Documented by: Guaifenesin/Codeine Phosphate (Codeine/Guaifenesin 10-100 Mg/5 Ml Syrup 5 Ml Cup) 5 ml PO Q6H PRN PRN Reason: Cough Stop: 03/19/21 04:20 Last Admin: 03/17/21 08:52 Dose: 5 ml Documented by: Remdesivir 100 mg/ Sodium (Chloride) 100 mls @ 100 mls/hr IV Q24H [facility] Stop: 03/19/21 14:59 Last Admin: 03/17/21 13:59 Dose: 100 mls/hr Documented by: Ondansetron HCl (Ondansetron 4 Mg/2 Ml Sdv) 4 mg IVPUSH Q4H PRN PRN Reason: Nausea Sodium Chloride (Sodium Chloride 0.9% 2.5 Ml Syringe) 2.5 ml FLUSH ASDIRECTED PRN PRN Reason: Keep Vein Open Discontinued Medications Dexamethasone (Dexamethasone 10 Mg/Ml Sdv) 10 mg IVPUSH ONETIME ONE Stop: 03/15/21 11:11 Last Admin: 03/15/21 11:35 Dose: 10 mg Documented by: Remdesivir 200 mg/ Sodium (Chloride) 250 mls @ 250 mls/hr IV ONETIME ONE Stop: 03/15/21 13:59 Last Admin: 03/15/21 14:28 Dose: 250 mls/hr Documented by: Iopamidol (Iopamidol 755 Mg/Ml 500 Ml Multipack Bottle) 100 ml IVPUSH ONETIME ONE Stop: 03/15/21 13:29 Last Admin: 03/15/21 13:30 Dose: 100 ml Documented by: - Exam Quality Assessment: Supplemental Oxygen General: Alert, Oriented, Mild Distress, Other Lungs: Normal Respiratory Effort, Decreased Breath Sounds, Crackles, Rales Cardiovascular: Regular Rate, Regular Rhythm GI/Abdominal Exam: Normal Bowel Sounds, Soft, Non-Tender - Patient Data Lab Results Last 24 hrs: Laboratory Results - last 24 hr 03/17/21 03/17/21 Range/Units 07:30 07:30 WBC 7.09 (4.0-11.0) K/uL RBC 4.34 (4.30-5.90) M/uL Hgb 12.6 (12.0-16.0) g/dL Hct 38.2 (36.0-46.0) % MCV 88.0 (80.0-98.0) fL MCH 29.0 (27.0-32.0) pg MCHC 33.0 (31.0-37.0) g/dL RDW Std Deviation 47.1 (28.0-62.0) fl RDW Coeff of Sandeep 15 (11.0-15.0) % Plt Count 221 (150-400) K/uL MPV 9.50 (7.40-12.00) fL Nucleated RBC % 0.0 /100WBC Nucleated RBCs # 0 K/uL Sodium 137 (136-145) mmol/L Potassium 4.5 (3.5-5.1) mmol/L Chloride 100 (98-107) mmol/L Carbon Dioxide 30.0 (21.0-32.0) mmol/L BUN 12 (7.0-18.0) mg/dL Creatinine 0.6 (0.6-1.0) mg/dL Est Cr Clr Drug Dosing 90.29 mL/min Estimated GFR (MDRD) > 60.0 ml/min Glucose 120 H (74-106) mg/dL Calcium 7.8 L (8.5-10.1) mg/dL Result Diagrams: 03/17/21 07:30 03/17/21 07:30 Sepsis Event Note - Evaluation Sepsis Screening Result: Possible Sepsis Risk - Focused Exam Vital Signs: Vital Signs Temp Resp BP Pulse Ox Pulse Ox 03/17/21 16:00 36.6 C 25 H 129/74 96 03/17/21 15:00 18 119/67 98 03/17/21 14:00 22 H 117/68 95 03/17/21 13:00 17 105/69 97 03/17/21 12:00 36.8 C 18 110/67 95 03/17/21 11:00 19 135/65 96 03/17/21 10:00 22 H 125/78 96 03/17/21 09:00 20 118/73 95 03/17/21 08:00 36.6 C 21 H 126/78 94 L 94 L 03/17/21 07:00 21 H 104/58 L 92 L 03/17/21 06:00 26 H 106/58 L 95 03/17/21 05:00 27 H 130/71 94 L - Problem List Review Problem List Initiated/Reviewed/Updated: Yes - My Orders Last 24 Hours: My Active Orders 03/17/21 03:06 Benzonatate [Tessalon Perles] 100 mg PO Q4H PRN - Plan Plan:: This 45-year-old female admitted with acute hypoxic respiratory failure, COVID- 19, and viral pneumonia 1. Acute hypoxic respiratory failure/COVID-19/viral pneumonia -Oxygen to keep sats greater than 92% wean as possible -Continue heated high flow at this time, monitor oxygen sats closely -Combivent 2 puffs every 4 hours, -Dexamethasone 6 mg p.o. daily -Remdesivir 100 g IV daily -Encourage I-S use along with self proning -Continue Lovenox -cont Baricitinib 4 mg po daily - Monitor LFTs with remdesivir and Baricitinib therapies -Robitussin and Tessalon Perles as needed cough -Supportive care as needed -Downgraded from ICU to [facility] as patient's oxygen requirement has significantly improved VTE prophylaxis: Lovenox twice daily due to elevated BMI GI prophylaxis: Protonix CODE STATUS: Full code Dispo: Pending improvement
[2021-03-17] MEDS: Acetaminophen 325 MG Tab PO PRN (18:53)
[2021-03-18] MEDS: Albuterol/Ipratropium 4 GM Inhalation Spray INH SCH ×6 (02:57→23:11)
[2021-03-18 07:16] LABS: BLOOD UREA NITROGEN,BUN 13 mg/dL (7.0-18.0); CARBON DIOXIDE,CO2 28.3 mmol/L (21.0-32.0); CHLORIDE,CL 98 mmol/L (98-107); GLUCOSE RANDOM 121 mg/dL (74-106); POTASSIUM,K 4.6 mmol/L (3.5-5.1); SODIUM,NA 136 mmol/L (136-145)
[2021-03-18] MEDS: Enoxaparin 40 MG/0.4 ML Syringe SUBCUT SCH ×2 (09:43→23:10)
[2021-03-18] MEDS: Dexamethasone 4 MG Tab PO SCH (14:17)
[2021-03-18] MEDS: REMDESIVIR 100 MG in Sodium Chloride 0.9% 100 ML IV SCH (14:20)
--- NOTE | 2021-03-18 15:13 | PCM.PN ---
- General Info Date of Service: 03/18/21 Admission Dx/Problem (Free Text): Admission Diagnosis/Problem Admission Diagnosis/Problem Hypoxia Subjective Update: Patient seen at bedside, was feeling short of breath after using bedside commode, patient's sats did drop to high 70s to low 80s and took her several minutes for her oxygen to climb back up. Patient was bumped up from 65% FiO2 to 72%. Functional Status: Reports: Tolerating Diet, Ambulating, Urinating - Review of Systems General: Reports: Weakness, Fatigue, Malaise. Denies: Fever Pulmonary: Reports: Shortness of Breath, Pleuritic Chest Pain, Cough, Sputum Gastrointestinal: Denies: Abdominal Pain, Constipation, Decreased Appetite Genitourinary: Denies: Frequency, Burning Musculoskeletal: Denies: Neck Pain, Shoulder Pain, Arm Pain Skin: Denies: Cyanosis, Jaundice, Mottled, Pallor - Patient Data Vitals - Most Recent: Last Vital Signs Temp 36.5 C 03/18/21 12:43 Pulse 91 03/18/21 12:43 Resp 18 03/18/21 12:43 BP 115/69 03/18/21 12:43 Pulse Ox 90 L 03/18/21 14:00 Weight - Most Recent: 156.217 kg I&O - Last 24 Hours: Intake & Output 03/18/21 03/18/21 03/18/21 06:59 14:59 22:59 Intake Total 940 Output Total 1125 Balance -185 Lab Results Last 24 Hours: Laboratory Results - last 24 hr 03/18/21 03/18/21 Range/Units 06:09 06:09 WBC 7.88 (4.0-11.0) K/uL RBC 4.63 (4.30-5.90) M/uL Hgb 13.5 (12.0-16.0) g/dL Hct 40.2 (36.0-46.0) % MCV 86.8 (80.0-98.0) fL MCH 29.2 (27.0-32.0) pg MCHC 33.6 (31.0-37.0) g/dL RDW Std Deviation 45.2 (28.0-62.0) fl RDW Coeff of Sandeep 14 (11.0-15.0) % Plt Count 226 (150-400) K/uL MPV 9.80 (7.40-12.00) fL Add Manual Diff YES Neutrophils % (Manual) 78 (48.0-80.0) % Band Neutrophils % 1 % Lymphocytes % (Manual) 15 L (16.0-40.0) % Monocytes % (Manual) 6 (0.0-15.0) % Nucleated RBC % 0.0 /100WBC Absolute Seg Neuts 6.1 H (1.4-5.7) Band Neutrophils # 0.1 Lymphocytes # (Manual) 1.2 (0.6-2.4) Monocytes # (Manual) 0.5 (0.0-0.8) Nucleated RBCs # 0 K/uL Sodium 136 (136-145) mmol/L Potassium 4.6 (3.5-5.1) mmol/L Chloride 98 (98-107) mmol/L Carbon Dioxide 28.3 (21.0-32.0) mmol/L BUN 13 (7.0-18.0) mg/dL Creatinine 0.6 (0.6-1.0) mg/dL Est Cr Clr Drug Dosing 90.29 mL/min Estimated GFR (MDRD) > 60.0 ml/min Glucose 121 H (74-106) mg/dL Calcium 7.7 L (8.5-10.1) mg/dL Phosphorus 4.2 (2.6-4.7) mg/dL Magnesium 2.3 (1.8-2.4) mg/dL Total Bilirubin 0.7 (0.2-1.0) mg/dL AST 79 H (15-37) IU/L ALT 71 H (14-63) IU/L Alkaline Phosphatase 139 H (46-116) U/L Total Protein 7.3 (6.4-8.2) g/dL Albumin 2.9 L (3.4-5.0) g/dL Globulin 4.4 H (2.6-4.0) g/dL Albumin/Globulin Ratio 0.7 L (0.9-1.6) Med Orders - Current: Current Medications Acetaminophen (Acetaminophen 325 Mg Tab) 650 mg PO Q4H PRN PRN Reason: Pain (Mild 1-3)/fever Last Admin: 03/17/21 18:53 Dose: 650 mg Documented by: Albuterol/Ipratropium (Albuterol/Ipratropium 4 Gm Inhalation [place]) 0 gm INH Q4HRRT [facility] Last Admin: 03/18/21 13:02 Dose: 2 puff Documented by: Benzonatate (Benzonatate 100 Mg Cap) 100 mg PO Q4H PRN PRN Reason: cough Last Admin: 03/17/21 13:59 Dose: 100 mg Documented by: Dexamethasone (Dexamethasone 4 Mg Tab) 6 mg PO DAILY@1400 [facility] Last Admin: 03/18/21 14:17 Dose: 6 mg Documented by: Enoxaparin Sodium (Enoxaparin 40 Mg/0.4 Ml Syringe) 40 mg SUBCUT Q12HR [facility] Last Admin: 03/18/21 09:43 Dose: 40 mg Documented by: Guaifenesin/Codeine Phosphate (Codeine/Guaifenesin 10-100 Mg/5 Ml Syrup 5 Ml Cup) 5 ml PO Q6H PRN PRN Reason: Cough Stop: 03/19/21 04:20 Last Admin: 03/17/21 08:52 Dose: 5 ml Documented by: Remdesivir 100 mg/ Sodium (Chloride) 100 mls @ 100 mls/hr IV Q24H [facility] Stop: 03/19/21 14:59 Last Admin: 03/18/21 14:20 Dose: 100 mls/hr Documented by: Ondansetron HCl (Ondansetron 4 Mg/2 Ml Sdv) 4 mg IVPUSH Q4H PRN PRN Reason: Nausea Last Admin: 03/18/21 01:17 Dose: 4 mg Documented by: Sodium Chloride (Sodium Chloride 0.9% 2.5 Ml Syringe) 2.5 ml FLUSH ASDIRECTED PRN PRN Reason: Keep Vein Open Discontinued Medications Dexamethasone (Dexamethasone 10 Mg/Ml Sdv) 10 mg IVPUSH ONETIME ONE Stop: 03/15/21 11:11 Last Admin: 03/15/21 11:35 Dose: 10 mg Documented by: Remdesivir 200 mg/ Sodium (Chloride) 250 mls @ 250 mls/hr IV ONETIME ONE Stop: 03/15/21 13:59 Last Admin: 03/15/21 14:28 Dose: 250 mls/hr Documented by: Iopamidol (Iopamidol 755 Mg/Ml 500 Ml Multipack Bottle) 100 ml IVPUSH ONETIME ONE Stop: 03/15/21 13:29 Last Admin: 03/15/21 13:30 Dose: 100 ml Documented by: - Exam Quality Assessment: Supplemental Oxygen General: Alert, Oriented, Moderate Distress Lungs: Decreased Breath Sounds, Crackles Cardiovascular: Regular Rate, Regular Rhythm GI/Abdominal Exam: Normal Bowel Sounds, Soft, Non-Tender - Patient Data Lab Results Last 24 hrs: Laboratory Results - last 24 hr 03/18/21 03/18/21 Range/Units 06:09 06:09 WBC 7.88 (4.0-11.0) K/uL RBC 4.63 (4.30-5.90) M/uL Hgb 13.5 (12.0-16.0) g/dL Hct 40.2 (36.0-46.0) % MCV 86.8 (80.0-98.0) fL MCH 29.2 (27.0-32.0) pg MCHC 33.6 (31.0-37.0) g/dL RDW Std Deviation 45.2 (28.0-62.0) fl RDW Coeff of Sandeep 14 (11.0-15.0) % Plt Count 226 (150-400) K/uL MPV 9.80 (7.40-12.00) fL Add Manual Diff YES Neutrophils % (Manual) 78 (48.0-80.0) % Band Neutrophils % 1 % Lymphocytes % (Manual) 15 L (16.0-40.0) % Monocytes % (Manual) 6 (0.0-15.0) % Nucleated RBC % 0.0 /100WBC Absolute Seg Neuts 6.1 H (1.4-5.7) Band Neutrophils # 0.1 Lymphocytes # (Manual) 1.2 (0.6-2.4) Monocytes # (Manual) 0.5 (0.0-0.8) Nucleated RBCs # 0 K/uL Sodium 136 (136-145) mmol/L Potassium 4.6 (3.5-5.1) mmol/L Chloride 98 (98-107) mmol/L Carbon Dioxide 28.3 (21.0-32.0) mmol/L BUN 13 (7.0-18.0) mg/dL Creatinine 0.6 (0.6-1.0) mg/dL Est Cr Clr Drug Dosing 90.29 mL/min Estimated GFR (MDRD) > 60.0 ml/min Glucose 121 H (74-106) mg/dL Calcium 7.7 L (8.5-10.1) mg/dL Phosphorus 4.2 (2.6-4.7) mg/dL Magnesium 2.3 (1.8-2.4) mg/dL Total Bilirubin 0.7 (0.2-1.0) mg/dL AST 79 H (15-37) IU/L ALT 71 H (14-63) IU/L Alkaline Phosphatase 139 H (46-116) U/L Total Protein 7.3 (6.4-8.2) g/dL Albumin 2.9 L (3.4-5.0) g/dL Globulin 4.4 H (2.6-4.0) g/dL Albumin/Globulin Ratio 0.7 L (0.9-1.6) Result Diagrams: 03/18/21 06:09 03/18/21 06:09 Sepsis Event Note - Evaluation Sepsis Screening Result: No Definite Risk - Focused Exam Vital Signs: Vital Signs Temp Pulse Resp BP Pulse Ox 03/18/21 14:00 90 L 03/18/21 12:43 36.5 C 91 18 115/69 90 L 03/18/21 09:00 35.9 C L 74 20 115/67 95 03/18/21 06:00 94 L 03/18/21 04:00 35.5 C L 84 22 H 130/72 90 L - Problem List & Annotations (1) Acute respiratory failure with hypoxia SNOMED Code(s): 64111766, 396138195 Code(s): J96.01 - ACUTE RESPIRATORY FAILURE WITH HYPOXIA Status: Acute Current Visit: Yes (2) COVID-19 SNOMED Code(s): 963013126 Code(s): U07.1 - COVID-19 Status: Acute Current Visit: Yes (3) Hypoxia SNOMED Code(s): 895128050 Code(s): R09.02 - HYPOXEMIA Status: Acute Current Visit: Yes (4) History of tobacco use SNOMED Code(s): 174141196 Code(s): Z87.891 - PERSONAL HISTORY OF NICOTINE DEPENDENCE Status: Chronic Current Visit: Yes (5) Morbid obesity with BMI of 60.0-69.9, adult SNOMED Code(s): 571606989, 89801849935572 Code(s): E66.01 - MORBID (SEVERE) OBESITY DUE TO EXCESS CALORIES; Z68.44 - BODY MASS INDEX [BMI] 60.0-69.9, ADULT Status: Chronic Current Visit: Yes - Problem List Review Problem List Initiated/Reviewed/Updated: Yes - My Orders Last 24 Hours: My Active Orders 03/17/21 16:58 Transfer Patient (Change bed) [ADT] Routine 03/17/21 16:59 Telemetry Monitoring [Cardiac Monitoring] [RC] Q8H - Plan Plan:: This 45-year-old female admitted with acute hypoxic respiratory failure, COVID- 19, and viral pneumonia 1. Acute hypoxic respiratory failure/COVID-19/viral pneumonia -Oxygen to keep sats greater than 92% wean as possible -Continue heated high flow at this time, monitor oxygen sats closely -Combivent 2 puffs every 4 hours, -Dexamethasone 6 mg p.o. daily -Remdesivir 100 g IV daily -Encourage I-S use along with self proning -Continue Lovenox -cont Baricitinib 4 mg po daily -Monitor LFTs with Remdesivir and Baricitinib therapies -Robitussin and Tessalon Perles as needed cough -Supportive care as needed -We will do continuous pulse ox VTE prophylaxis: Lovenox twice daily due to elevated BMI GI prophylaxis: Protonix CODE STATUS: Full code Dispo: Pending improvement
[2021-03-18] MEDS ORDERED: Furosemide 20 MG/2 ML VIAL IVPUSH ONE (19:07)
[2021-03-18] MEDS ORDERED: LORazepam 2 MG/ML SDV IVPUSH ONE (23:25)
[2021-03-19] MEDS: Albuterol/Ipratropium 4 GM Inhalation Spray INH SCH ×2 (03:02→05:59)
[2021-03-19] MEDS: Albuterol/Ipratropium 3.0-0.5 MG/3 ML Neb Soln NEB PRN ×2 (03:02→05:56)
[2021-03-19 06:29] LABS: BLOOD UREA NITROGEN,BUN 16 mg/dL (7.0-18.0); CARBON DIOXIDE,CO2 28.3 mmol/L (21.0-32.0); CHLORIDE,CL 97 mmol/L (98-107); GLUCOSE RANDOM 126 mg/dL (74-106); POTASSIUM,K 4.3 mmol/L (3.5-5.1); SODIUM,NA 134 mmol/L (136-145)
[2021-03-19] MEDS ORDERED: Furosemide 40 MG/4 ML VIAL IVPUSH ONE (06:32)
[2021-03-19] MEDS ORDERED: Morphine 2 MG/ML SYRINGE IVPUSH ONE (06:32)
--- NOTE | 2021-03-19 06:51 | PN ---
TH[facility] Physician - Brief Progress [id number]/31/2021 06:39[facility] Deion Acosta, [place] [facility] MICK GASPAR COVID+Date of Service 03/19/2021 06:39HPI/Ev ents of Note eICU admission noteActive problems:1. Acute hypoxemic respiratory failure2. COVID-19 i nfection with pneumonia3. Sepsis secondary to above4. Morbid obesityHPI:History is obtained from sd dical chart review and discussion with bedside ICU nursing staff.45-year-old female readmitted to ICU due to worsening shortness of breath, hypoxemia, tachypnea respiratory rate 35 to 40/min, increasing oxygen requirements currently on CPAP 16 with 85% FiO2. Patient is treated with dexamethasone 6 mg oral daily, remdesivir and baricitinib.Patient was seen and evaluated via E care cameraOn CPAP, mild to moderate respiratory distress and tachypneaVitals:Afebrile, BP 129/76, P 63, RR 35 to 40/min, SPO2 93% on CPAP 16 and 85% [id number], labs and images reviewedeICU recommendations:-Continue current luis eduardo atment plan as per primary medical team-Chest x-ray, ABG, lactate, procalcitonin-Lasix 40 mg IV x1 do se and monitor response-Morphine 2 mg IV for respiratory distress-Consider blood culture and adding a ntibiotics if there is concern for bacterial infection-Change dexamethasone to 10 mg IV daily-Continu e remdesivir and baricitinib.-DVT prophylaxis Lovenox 40 mg twice daily-Discussed with bedside ICU nu rsing staffThank you for allowing us to participate in the care of your patient. Please call eICU wi th any questions, concerns or changes in clinical condition.Interventions Major-Infection - evaluatio n and management, Respiratory failure - evaluation and management, Sepsis - evaluation and management , Other: COVID-19 pneumonia
--- NOTE | 2021-03-19 07:31 | CR ---
INDICATION: Increased respiratory rate. COMPARISON: 03/15/2021. TECHNIQUE: Chest one-view. FINDINGS: Patchy bilateral lung opacities are decreased from prior. No pleural effusion or pneumothorax. Cardiomediastinal silhouette is stable. IMPRESSION: Improving bilateral lung opacities. Dictated by Roc Ye MD @ 03/19/2021 7:29:[address] Roc Ye @ Mar 19 2021 7:29AM
[2021-03-19] MEDS: Enoxaparin 40 MG/0.4 ML Syringe SUBCUT SCH ×2 (09:03→20:59)
[2021-03-19] MEDS: Dexamethasone 10 MG/ML SDV IVPUSH SCH (09:03)
[2021-03-19] MEDS: Albuterol/Ipratropium 3.0-0.5 MG/3 ML Neb Soln NEB SCH ×4 (09:31→21:00)
[2021-03-19] MEDS ORDERED: Albuterol/Ipratropium 3.0-0.5 MG/3 ML Neb Soln NEB PRN (10:00)
[2021-03-19] MEDS: REMDESIVIR 100 MG in Sodium Chloride 0.9% 100 ML IV SCH (13:10)
--- NOTE | 2021-03-19 16:16 | PCM.PN ---
- General Info Date of Service: 03/19/21 Admission Dx/Problem (Free Text): Admission Diagnosis/Problem Admission Diagnosis/Problem Hypoxia Subjective Update: Patient seen at bedside in the ICU, overnight patient had to be transferred back to the ICU due to increased work of breathing and respiratory rate as well as increasing oxygen requirement. Currently patient is resting comfortably requiring 85% FiO2 satting 94 to 95%. Repeat chest x-ray done this morning french wed increasing bilateral lung opacities, no concern of developing bacterial pneumonia. ABG noted, slight leukocytosis which is likely reactive but will continue to monitor closely. - Review of Systems General: Reports: Weakness, Fatigue, Malaise Pulmonary: Reports: Shortness of Breath, Cough. Denies: Pleuritic Chest Pain, Sputum Cardiovascular: Reports: Dyspnea on Exertion. Denies: Chest Pain, Palpitations Gastrointestinal: Denies: Abdominal Pain, Constipation, Decreased Appetite Genitourinary: Denies: Dysuria, Frequency, Burning Musculoskeletal: Denies: Neck Pain, Shoulder Pain, Arm Pain Skin: Denies: Cyanosis, Jaundice, Mottled - Patient Data Vitals - Most Recent: Last Vital Signs Temp 36.5 C 03/19/21 13:00 Pulse 63 03/19/21 03:06 Resp 27 H 03/19/21 15:00 BP 117/71 03/19/21 15:00 Pulse Ox 93 L 03/19/21 15:00 Weight - Most Recent: 133.3 kg I&O - Last 24 Hours: Intake & Output 03/19/21 03/19/21 03/19/21 06:59 14:59 22:59 Intake Total 200 Output Total 2000 1100 Balance -1800 -1100 Lab Results Last 24 Hours: Laboratory Results - last 24 hr 03/19/21 03/19/21 03/19/21 Range/Units 05:04 05:04 06:37 WBC 11.24 H (4.0-11.0) K/uL RBC 4.80 (4.30-5.90) M/uL Hgb 13.7 (12.0-16.0) g/dL Hct 41.5 (36.0-46.0) % MCV 86.5 (80.0-98.0) fL MCH 28.5 (27.0-32.0) pg MCHC 33.0 (31.0-37.0) g/dL RDW Std Deviation 44.2 (28.0-62.0) fl RDW Coeff of Sandeep 14 (11.0-15.0) % Plt Count 285 (150-400) K/uL MPV 9.70 (7.40-12.00) fL Add Manual Diff YES Neutrophils % (Manual) 85 H (48.0-80.0) % Lymphocytes % (Manual) 13 L (16.0-40.0) % Monocytes % (Manual) 2 (0.0-15.0) % Nucleated RBC % 0.0 /100WBC Absolute Seg Neuts 9.6 H (1.4-5.7) Lymphocytes # (Manual) 1.5 (0.6-2.4) Monocytes # (Manual) 0.2 (0.0-0.8) Nucleated RBCs # 0 K/uL ABG pH 7.48 H (7.35-7.45) ABG pCO2 41 (35-45) mmHG ABG pO2 26 L* (80-105) mmHG ABG HCO3 31 H (22-26) mEq/L ABG Total CO2 32 H (23-27) mmol/L ABG Base Excess 6.0 H (-2.0-3.0) Sodium 134 L (136-145) mmol/L Potassium 4.3 (3.5-5.1) mmol/L Chloride 97 L (98-107) mmol/L Carbon Dioxide 28.3 (21.0-32.0) mmol/L BUN 16 (7.0-18.0) mg/dL Creatinine 0.7 (0.6-1.0) mg/dL Est Cr Clr Drug Dosing 77.39 mL/min Estimated GFR (MDRD) > 60.0 ml/min Glucose 126 H (74-106) mg/dL Lactic Acid (0.4-2.0) mmol/L Calcium 8.1 L (8.5-10.1) mg/dL Phosphorus 4.7 (2.6-4.7) mg/dL Magnesium 2.2 (1.8-2.4) mg/dL Total Bilirubin 0.9 (0.2-1.0) mg/dL AST 66 H (15-37) IU/L ALT 72 H (14-63) IU/L Alkaline Phosphatase 138 H (46-116) U/L Total Protein 7.8 (6.4-8.2) g/dL Albumin 3.0 L (3.4-5.0) g/dL Globulin 4.8 H (2.6-4.0) g/dL Albumin/Globulin Ratio 0.6 L (0.9-1.6) 03/19/21 Range/Units 07:04 WBC (4.0-11.0) K/uL RBC (4.30-5.90) M/uL Hgb (12.0-16.0) g/dL Hct (36.0-46.0) % MCV (80.0-98.0) fL MCH (27.0-32.0) pg MCHC (31.0-37.0) g/dL RDW Std Deviation (28.0-62.0) fl RDW Coeff of Sandeep (11.0-15.0) % Plt Count (150-400) K/uL MPV (7.40-12.00) fL Add Manual Diff Neutrophils % (Manual) (48.0-80.0) % Lymphocytes % (Manual) (16.0-40.0) % Monocytes % (Manual) (0.0-15.0) % Nucleated RBC % /100WBC Absolute Seg Neuts (1.4-5.7) Lymphocytes # (Manual) (0.6-2.4) Monocytes # (Manual) (0.0-0.8) Nucleated RBCs # K/uL ABG pH (7.35-7.45) ABG pCO2 (35-45) mmHG ABG pO2 (80-105) mmHG ABG HCO3 (22-26) mEq/L ABG Total CO2 (23-27) mmol/L ABG Base Excess (-2.0-3.0) Sodium (136-145) mmol/L Potassium (3.5-5.1) mmol/L Chloride (98-107) mmol/L Carbon Dioxide (21.0-32.0) mmol/L BUN (7.0-18.0) mg/dL Creatinine (0.6-1.0) mg/dL Est Cr Clr Drug Dosing mL/min Estimated GFR (MDRD) ml/min Glucose (74-106) mg/dL Lactic Acid 1.7 (0.4-2.0) mmol/L Calcium (8.5-10.1) mg/dL Phosphorus (2.6-4.7) mg/dL Magnesium (1.8-2.4) mg/dL Total Bilirubin (0.2-1.0) mg/dL AST (15-37) IU/L ALT (14-63) IU/L Alkaline Phosphatase (46-116) U/L Total Protein (6.4-8.2) g/dL Albumin (3.4-5.0) g/dL Globulin (2.6-4.0) g/dL Albumin/Globulin Ratio (0.9-1.6) Med Orders - Current: Current Medications Acetaminophen (Acetaminophen 325 Mg Tab) 650 mg PO Q4H PRN PRN Reason: Pain (Mild 1-3)/fever Last Admin: 03/17/21 18:53 Dose: 650 mg Documented by: Albuterol/Ipratropium (Albuterol/Ipratropium 3.0-0.5 Mg/3 Ml Neb Soln) 3 ml NEB Q4HRRT [facility] Last Admin: 03/19/21 13:17 Dose: 3 ml Documented by: Benzonatate (Benzonatate 100 Mg Cap) 100 mg PO Q4H PRN PRN Reason: cough Last Admin: 03/17/21 13:59 Dose: 100 mg Documented by: Dexamethasone (Dexamethasone 10 Mg/Ml Sdv) 10 mg IVPUSH DAILY [facility] Last Admin: 03/19/21 09:03 Dose: 10 mg Documented by: Enoxaparin Sodium (Enoxaparin 40 Mg/0.4 Ml Syringe) 40 mg SUBCUT Q12HR [facility] Last Admin: 03/19/21 09:03 Dose: 40 mg Documented by: Ondansetron HCl (Ondansetron 4 Mg/2 Ml Sdv) 4 mg IVPUSH Q4H PRN PRN Reason: Nausea Last Admin: 03/18/21 01:17 Dose: 4 mg Documented by: Sodium Chloride (Sodium Chloride 0.9% 2.5 Ml Syringe) 2.5 ml FLUSH ASDIRECTED PRN PRN Reason: Keep Vein Open Discontinued Medications Albuterol/Ipratropium (Albuterol/Ipratropium 4 Gm Inhalation [place]) 0 gm INH Q4HRRT [facility] Last Admin: 03/19/21 05:59 Dose: Not Given Documented by: Albuterol/Ipratropium (Albuterol/Ipratropium 3.0-0.5 Mg/3 Ml Neb Soln) 3 ml NEB Q4H PRN PRN Reason: Shortness of Breath Last Admin: 03/19/21 05:56 Dose: 3 ml Documented by: Albuterol/Ipratropium (Albuterol/Ipratropium 3.0-0.5 Mg/3 Ml Neb Soln) 3 ml NEB Q4HRRT PRN PRN Reason: SHORTNESS OF BREATH Dexamethasone (Dexamethasone 10 Mg/Ml Sdv) 10 mg IVPUSH ONETIME ONE Stop: 03/15/21 11:11 Last Admin: 03/15/21 11:35 Dose: 10 mg Documented by: Dexamethasone (Dexamethasone 4 Mg Tab) 6 mg PO DAILY@1400 [place] Last Admin: 03/18/21 14:17 Dose: 6 mg Documented by: Furosemide (Furosemide 20 Mg/2 Ml Vial) 20 mg IVPUSH NOW ONE Stop: 03/18/21 19:08 Last Admin: 03/18/21 19:47 Dose: 20 mg Documented by: Furosemide (Furosemide 40 Mg/4 Ml Vial) 40 mg IVPUSH NOW ONE Stop: 03/19/21 06:33 Last Admin: 03/19/21 07:24 Dose: 40 mg Documented by: Guaifenesin/Codeine Phosphate (Codeine/Guaifenesin 10-100 Mg/5 Ml Syrup 5 Ml Cup) 5 ml PO Q6H PRN PRN Reason: Cough Stop: 03/19/21 04:20 Last Admin: 03/17/21 08:52 Dose: 5 ml Documented by: Remdesivir 200 mg/ Sodium (Chloride) 250 mls @ 250 mls/hr IV ONETIME ONE Stop: 03/15/21 13:59 Last Admin: 03/15/21 14:28 Dose: 250 mls/hr Documented by: Remdesivir 100 mg/ Sodium (Chloride) 100 mls @ 100 mls/hr IV Q24H [place] Stop: 03/19/21 14:59 Last Admin: 03/19/21 13:10 Dose: 100 mls/hr Documented by: Iopamidol (Iopamidol 755 Mg/Ml 500 Ml Multipack Bottle) 100 ml IVPUSH ONETIME ONE Stop: 03/15/21 13:29 Last Admin: 03/15/21 13:30 Dose: 100 ml Documented by: Lorazepam (Lorazepam 2 Mg/Ml Sdv) 1 mg IVPUSH ONETIME ONE Stop: 03/18/21 23:26 Last Admin: 03/19/21 00:14 Dose: 1 mg Documented by: Morphine Sulfate (Morphine 2 Mg/Ml Syringe) 2 mg IVPUSH ONETIME ONE Stop: 03/19/21 06:33 Last Admin: 03/19/21 07:26 Dose: 2 mg Documented by: - Exam Quality Assessment: Supplemental Oxygen Urinary Catheter Total Time: 0Days 19Hours General: Alert, Oriented Neck: Supple Lungs: Clear to Auscultation, Normal Respiratory Effort Cardiovascular: Regular Rate, Regular Rhythm GI/Abdominal Exam: Normal Bowel Sounds, Soft, Non-Tender - Patient Data Lab Results Last 24 hrs: Laboratory Results - last 24 hr 03/19/21 03/19/21 03/19/21 Range/Units 05:04 05:04 06:37 WBC 11.24 H (4.0-11.0) K/uL RBC 4.80 (4.30-5.90) M/uL Hgb 13.7 (12.0-16.0) g/dL Hct 41.5 (36.0-46.0) % MCV 86.5 (80.0-98.0) fL MCH 28.5 (27.0-32.0) pg MCHC 33.0 (31.0-37.0) g/dL RDW Std Deviation 44.2 (28.0-62.0) fl RDW Coeff of Sandeep 14 (11.0-15.0) % Plt Count 285 (150-400) K/uL MPV 9.70 (7.40-12.00) fL Add Manual Diff YES Neutrophils % (Manual) 85 H (48.0-80.0) % Lymphocytes % (Manual) 13 L (16.0-40.0) % Monocytes % (Manual) 2 (0.0-15.0) % Nucleated RBC % 0.0 /100WBC Absolute Seg Neuts 9.6 H (1.4-5.7) Lymphocytes # (Manual) 1.5 (0.6-2.4) Monocytes # (Manual) 0.2 (0.0-0.8) Nucleated RBCs # 0 K/uL ABG pH 7.48 H (7.35-7.45) ABG pCO2 41 (35-45) mmHG ABG pO2 26 L* (80-105) mmHG ABG HCO3 31 H (22-26) mEq/L ABG Total CO2 32 H (23-27) mmol/L ABG Base Excess 6.0 H (-2.0-3.0) Sodium 134 L (136-145) mmol/L Potassium 4.3 (3.5-5.1) mmol/L Chloride 97 L (98-107) mmol/L Carbon Dioxide 28.3 (21.0-32.0) mmol/L BUN 16 (7.0-18.0) mg/dL Creatinine 0.7 (0.6-1.0) mg/dL Est Cr Clr Drug Dosing 77.39 mL/min Estimated GFR (MDRD) > 60.0 ml/min Glucose 126 H (74-106) mg/dL Lactic Acid (0.4-2.0) mmol/L Calcium 8.1 L (8.5-10.1) mg/dL Phosphorus 4.7 (2.6-4.7) mg/dL Magnesium 2.2 (1.8-2.4) mg/dL Total Bilirubin 0.9 (0.2-1.0) mg/dL AST 66 H (15-37) IU/L ALT 72 H (14-63) IU/L Alkaline Phosphatase 138 H (46-116) U/L Total Protein 7.8 (6.4-8.2) g/dL Albumin 3.0 L (3.4-5.0) g/dL Globulin 4.8 H (2.6-4.0) g/dL Albumin/Globulin Ratio 0.6 L (0.9-1.6) 03/19/21 Range/Units 07:04 WBC (4.0-11.0) K/uL RBC (4.30-5.90) M/uL Hgb (12.0-16.0) g/dL Hct (36.0-46.0) % MCV (80.0-98.0) fL MCH (27.0-32.0) pg MCHC (31.0-37.0) g/dL RDW Std Deviation (28.0-62.0) fl RDW Coeff of Sandeep (11.0-15.0) % Plt Count (150-400) K/uL MPV (7.40-12.00) fL Add Manual Diff Neutrophils % (Manual) (48.0-80.0) % Lymphocytes % (Manual) (16.0-40.0) % Monocytes % (Manual) (0.0-15.0) % Nucleated RBC % /100WBC Absolute Seg Neuts (1.4-5.7) Lymphocytes # (Manual) (0.6-2.4) Monocytes # (Manual) (0.0-0.8) Nucleated RBCs # K/uL ABG pH (7.35-7.45) ABG pCO2 (35-45) mmHG ABG pO2 (80-105) mmHG ABG HCO3 (22-26) mEq/L ABG Total CO2 (23-27) mmol/L ABG Base Excess (-2.0-3.0) Sodium (136-145) mmol/L Potassium (3.5-5.1) mmol/L Chloride (98-107) mmol/L Carbon Dioxide (21.0-32.0) mmol/L BUN (7.0-18.0) mg/dL Creatinine (0.6-1.0) mg/dL Est Cr Clr Drug Dosing mL/min Estimated GFR (MDRD) ml/min Glucose (74-106) mg/dL Lactic Acid 1.7 (0.4-2.0) mmol/L Calcium (8.5-10.1) mg/dL Phosphorus (2.6-4.7) mg/dL Magnesium (1.8-2.4) mg/dL Total Bilirubin (0.2-1.0) mg/dL AST (15-37) IU/L ALT (14-63) IU/L Alkaline Phosphatase (46-116) U/L Total Protein (6.4-8.2) g/dL Albumin (3.4-5.0) g/dL Globulin (2.6-4.0) g/dL Albumin/Globulin Ratio (0.9-1.6) Result Diagrams: 03/19/21 05:04 03/19/21 05:04 Sepsis Event Note - Evaluation Sepsis Screening Result: Possible Sepsis Risk - Focused Exam Vital Signs: Vital Signs Temp Resp BP Pulse Ox 03/19/21 15:00 27 H 117/71 93 L 03/19/21 14:00 33 H 120/54 L 90 L 03/19/21 13:00 36.5 C 29 H 105/48 L 93 L 03/19/21 12:00 21 H 111/75 97 03/19/21 11:00 45 H 113/67 93 L 03/19/21 10:00 44 H 125/70 91 L 03/19/21 09:00 36.2 C 38 H 119/75 91 L 03/19/21 08:00 37 H 123/69 91 L 03/19/21 07:00 40 H 126/66 91 L 03/19/21 06:00 35 H 129/56 L 93 L 03/19/21 05:00 42 H 129/76 95 - Problem List & Annotations (1) Acute respiratory failure with hypoxia SNOMED Code(s): 61855376, 790772546 Code(s): J96.01 - ACUTE RESPIRATORY FAILURE WITH HYPOXIA Status: Acute Current Visit: Yes (2) COVID-19 SNOMED Code(s): 374839167 Code(s): U07.1 - COVID-19 Status: Acute Current Visit: Yes (3) Hypoxia SNOMED Code(s): 460970729 Code(s): R09.02 - HYPOXEMIA Status: Acute Current Visit: Yes (4) History of tobacco use SNOMED Code(s): 813259349 Code(s): Z87.891 - PERSONAL HISTORY OF NICOTINE DEPENDENCE Status: Chronic Current Visit: Yes (5) Morbid obesity with BMI of 60.0-69.9, adult SNOMED Code(s): 722074747, 12373401675946 Code(s): E66.01 - MORBID (SEVERE) OBESITY DUE TO EXCESS CALORIES; Z68.44 - BODY MASS INDEX [BMI] 60.0-69.9, ADULT Status: Chronic Current Visit: Yes - Problem List Review Problem List Initiated/Reviewed/Updated: Yes - My Orders Last 24 Hours: My Active Orders 03/18/21 15:13 Pulse Oximetry Continuous Monitoring [OM.PC] Routine 03/18/21 17:37 CPAP [RESPCARE] Routine 03/18/21 17:39 Urinary Catheter Assessment [RC] Q4H 03/18/21 17:45 Insert Mckenna Catheter [Insert Urinary Catheter] [OM.PC] Q24H 03/18/21 21:33 RT Aerosol Therapy [RC] ASDIRECTED 03/19/21 04:29 Transfer Patient (Change bed) [ADT] Routine - Plan Plan:: This 45-year-old female admitted with acute hypoxic respiratory failure, COVID- 19, and viral pneumonia 1. Acute hypoxic respiratory failure/COVID-19/viral pneumonia -Oxygen to keep sats greater than 92% wean as possible -Continue CPAP currently, monitor oxygen saturations very closely -DC Combivent and switch to, scheduled duo nebs -Dexamethasone has been switched to 10 mg IV daily on recommendations of eICU -Remdesivir 100 g IV daily -Encourage I-S use along with self proning -Continue Lovenox -cont Baricitinib 4 mg po daily -Monitor LFTs with Remdesivir and Baricitinib therapies -Robitussin and Tessalon Perles as needed cough -Supportive care as needed -We will do continuous pulse ox -Appreciate eICU recommendations VTE prophylaxis: Lovenox twice daily due to elevated BMI GI prophylaxis: Protonix CODE STATUS: Full code Dispo: Pending improvement
[2021-03-20] MEDS: Albuterol/Ipratropium 3.0-0.5 MG/3 ML Neb Soln NEB SCH ×6 (01:25→22:00)
[2021-03-20 06:35] LABS: BLOOD UREA NITROGEN,BUN 21 mg/dL (7.0-18.0); CARBON DIOXIDE,CO2 30.8 mmol/L (21.0-32.0); CHLORIDE,CL 97 mmol/L (98-107); GLUCOSE RANDOM 120 mg/dL (74-106); POTASSIUM,K 3.6 mmol/L (3.5-5.1); SODIUM,NA 135 mmol/L (136-145)
[2021-03-20] MEDS: Dexamethasone 10 MG/ML SDV IVPUSH SCH (09:46)
[2021-03-20] MEDS: Enoxaparin 40 MG/0.4 ML Syringe SUBCUT SCH ×2 (09:46→20:47)
[2021-03-20] MEDS: Benzonatate 100 MG Cap PO PRN ×3 (11:58→22:20)
--- NOTE | 2021-03-20 14:15 | PCM.PN ---
- General Info Date of Service: 03/20/21 Admission Dx/Problem (Free Text): Admission Diagnosis/Problem Admission Diagnosis/Problem Hypoxia Subjective Update: seen at bedside, doing well on CPAP Functional Status: Denies: Ambulating - Review of Systems General: Reports: Weakness, Fatigue. Denies: Fever Pulmonary: Reports: Shortness of Breath, Cough. Denies: Pleuritic Chest Pain Cardiovascular: Reports: Dyspnea on Exertion. Denies: Chest Pain, Palpitations Gastrointestinal: Denies: Abdominal Pain, Constipation, Decreased Appetite Genitourinary: Denies: Dysuria, Frequency, Burning Musculoskeletal: Denies: Neck Pain, Shoulder Pain, Arm Pain Skin: Denies: Cyanosis, Jaundice, Mottled - Patient Data Vitals - Most Recent: Last Vital Signs Temp 36.2 C 03/20/21 12:00 Pulse 63 03/19/21 03:06 Resp 23 H 03/20/21 14:00 BP 93/55 L 03/20/21 14:00 Pulse Ox 92 L 03/20/21 14:00 Weight - Most Recent: 142.362 kg I&O - Last 24 Hours: Intake & Output 03/19/21 03/20/21 03/20/21 22:59 06:59 14:59 Intake Total 640 750 Output Total 375 500 Balance 265 250 Lab Results Last 24 Hours: Laboratory Results - last 24 hr 03/19/21 03/20/21 03/20/21 Range/Units 07:04 05:39 05:39 WBC 13.60 H (4.0-11.0) K/uL RBC 4.82 (4.30-5.90) M/uL Hgb 13.9 (12.0-16.0) g/dL Hct 41.7 (36.0-46.0) % MCV 86.5 (80.0-98.0) fL MCH 28.8 (27.0-32.0) pg MCHC 33.3 (31.0-37.0) g/dL RDW Std Deviation 44.0 (28.0-62.0) fl RDW Coeff of Sandeep 14 (11.0-15.0) % Plt Count 278 (150-400) K/uL MPV 9.70 (7.40-12.00) fL Add Manual Diff YES Neutrophils % (Manual) 82 H (48.0-80.0) % Lymphocytes % (Manual) 13 L (16.0-40.0) % Monocytes % (Manual) 5 (0.0-15.0) % Nucleated RBC % 0.2 /100WBC Absolute Seg Neuts 11.2 H (1.4-5.7) Lymphocytes # (Manual) 1.8 (0.6-2.4) Monocytes # (Manual) 0.7 (0.0-0.8) Nucleated RBCs # 0 K/uL Sodium 135 L (136-145) mmol/L Potassium 3.6 (3.5-5.1) mmol/L Chloride 97 L (98-107) mmol/L Carbon Dioxide 30.8 (21.0-32.0) mmol/L BUN 21 H (7.0-18.0) mg/dL Creatinine 0.7 (0.6-1.0) mg/dL Est Cr Clr Drug Dosing 77.39 mL/min Estimated GFR (MDRD) > 60.0 ml/min Glucose 120 H (74-106) mg/dL Calcium 8.1 L (8.5-10.1) mg/dL Procalcitonin <0.05 ng/mL Med Orders - Current: Current Medications Acetaminophen (Acetaminophen 325 Mg Tab) 650 mg PO Q4H PRN PRN Reason: Pain (Mild 1-3)/fever Last Admin: 03/17/21 18:53 Dose: 650 mg Documented by: Albuterol/Ipratropium (Albuterol/Ipratropium 3.0-0.5 Mg/3 Ml Neb Soln) 3 ml NEB Q4HRRT [facility] Last Admin: 03/20/21 13:32 Dose: 3 ml Documented by: Benzonatate (Benzonatate 100 Mg Cap) 100 mg PO Q4H PRN PRN Reason: cough Last Admin: 03/20/21 11:58 Dose: 100 mg Documented by: Dexamethasone (Dexamethasone 10 Mg/Ml Sdv) 10 mg IVPUSH DAILY [facility] Last Admin: 03/20/21 09:46 Dose: 10 mg Documented by: Enoxaparin Sodium (Enoxaparin 40 Mg/0.4 Ml Syringe) 40 mg SUBCUT Q12HR [facility] Last Admin: 03/20/21 09:46 Dose: 40 mg Documented by: Ondansetron HCl (Ondansetron 4 Mg/2 Ml Sdv) 4 mg IVPUSH Q4H PRN PRN Reason: Nausea Last Admin: 03/18/21 01:17 Dose: 4 mg Documented by: Sodium Chloride (Sodium Chloride 0.9% 2.5 Ml Syringe) 2.5 ml FLUSH ASDIRECTED PRN PRN Reason: Keep Vein Open Discontinued Medications Albuterol/Ipratropium (Albuterol/Ipratropium 4 Gm Inhalation [place]) 0 gm INH Q4HRRT [place] Last Admin: 03/19/21 05:59 Dose: Not Given Documented by: Albuterol/Ipratropium (Albuterol/Ipratropium 3.0-0.5 Mg/3 Ml Neb Soln) 3 ml NEB Q4H PRN PRN Reason: Shortness of Breath Last Admin: 03/19/21 05:56 Dose: 3 ml Documented by: Albuterol/Ipratropium (Albuterol/Ipratropium 3.0-0.5 Mg/3 Ml Neb Soln) 3 ml NEB Q4HRRT PRN PRN Reason: SHORTNESS OF BREATH Dexamethasone (Dexamethasone 10 Mg/Ml Sdv) 10 mg IVPUSH ONETIME ONE Stop: 03/15/21 11:11 Last Admin: 03/15/21 11:35 Dose: 10 mg Documented by: Dexamethasone (Dexamethasone 4 Mg Tab) 6 mg PO DAILY@1400 [place] Last Admin: 03/18/21 14:17 Dose: 6 mg Documented by: Furosemide (Furosemide 20 Mg/2 Ml Vial) 20 mg IVPUSH NOW ONE Stop: 03/18/21 19:08 Last Admin: 03/18/21 19:47 Dose: 20 mg Documented by: Furosemide (Furosemide 40 Mg/4 Ml Vial) 40 mg IVPUSH NOW ONE Stop: 03/19/21 06:33 Last Admin: 03/19/21 07:24 Dose: 40 mg Documented by: Guaifenesin/Codeine Phosphate (Codeine/Guaifenesin 10-100 Mg/5 Ml Syrup 5 Ml Cup) 5 ml PO Q6H PRN PRN Reason: Cough Stop: 03/19/21 04:20 Last Admin: 03/17/21 08:52 Dose: 5 ml Documented by: Remdesivir 200 mg/ Sodium (Chloride) 250 mls @ 250 mls/hr IV ONETIME ONE Stop: 03/15/21 13:59 Last Admin: 03/15/21 14:28 Dose: 250 mls/hr Documented by: Remdesivir 100 mg/ Sodium (Chloride) 100 mls @ 100 mls/hr IV Q24H [place] Stop: 03/19/21 14:59 Last Admin: 03/19/21 13:10 Dose: 100 mls/hr Documented by: Iopamidol (Iopamidol 755 Mg/Ml 500 Ml Multipack Bottle) 100 ml IVPUSH ONETIME ONE Stop: 03/15/21 13:29 Last Admin: 03/15/21 13:30 Dose: 100 ml Documented by: Lorazepam (Lorazepam 2 Mg/Ml Sdv) 1 mg IVPUSH ONETIME ONE Stop: 03/18/21 23:26 Last Admin: 03/19/21 00:14 Dose: 1 mg Documented by: Morphine Sulfate (Morphine 2 Mg/Ml Syringe) 2 mg IVPUSH ONETIME ONE Stop: 03/19/21 06:33 Last Admin: 03/19/21 07:26 Dose: 2 mg Documented by: - Exam Quality Assessment: Supplemental Oxygen Urinary Catheter Total Time: 1Days 19Hours General: Alert, Oriented Neck: Supple Lungs: Decreased Breath Sounds, Crackles Cardiovascular: Regular Rate, Regular Rhythm GI/Abdominal Exam: Normal Bowel Sounds, Soft, Non-Tender Extremities: Normal Inspection, Normal Range of Motion - Patient Data Lab Results Last 24 hrs: Laboratory Results - last 24 hr 03/19/21 03/20/21 03/20/21 Range/Units 07:04 05:39 05:39 WBC 13.60 H (4.0-11.0) K/uL RBC 4.82 (4.30-5.90) M/uL Hgb 13.9 (12.0-16.0) g/dL Hct 41.7 (36.0-46.0) % MCV 86.5 (80.0-98.0) fL MCH 28.8 (27.0-32.0) pg MCHC 33.3 (31.0-37.0) g/dL RDW Std Deviation 44.0 (28.0-62.0) fl RDW Coeff of Sandeep 14 (11.0-15.0) % Plt Count 278 (150-400) K/uL MPV 9.70 (7.40-12.00) fL Add Manual Diff YES Neutrophils % (Manual) 82 H (48.0-80.0) % Lymphocytes % (Manual) 13 L (16.0-40.0) % Monocytes % (Manual) 5 (0.0-15.0) % Nucleated RBC % 0.2 /100WBC Absolute Seg Neuts 11.2 H (1.4-5.7) Lymphocytes # (Manual) 1.8 (0.6-2.4) Monocytes # (Manual) 0.7 (0.0-0.8) Nucleated RBCs # 0 K/uL Sodium 135 L (136-145) mmol/L Potassium 3.6 (3.5-5.1) mmol/L Chloride 97 L (98-107) mmol/L Carbon Dioxide 30.8 (21.0-32.0) mmol/L BUN 21 H (7.0-18.0) mg/dL Creatinine 0.7 (0.6-1.0) mg/dL Est Cr Clr Drug Dosing 77.39 mL/min Estimated GFR (MDRD) > 60.0 ml/min Glucose 120 H (74-106) mg/dL Calcium 8.1 L (8.5-10.1) mg/dL Procalcitonin <0.05 ng/mL Result Diagrams: 03/20/21 05:39 03/20/21 05:39 Sepsis Event Note - Evaluation Sepsis Screening Result: Possible Sepsis Risk - Focused Exam Vital Signs: Vital Signs Temp Temp Resp BP Pulse Ox Pulse Ox 03/20/21 14:00 23 H 93/55 L 92 L 03/20/21 13:00 24 H 101/69 95 03/20/21 12:00 36.2 C 36 H 106/74 95 03/20/21 11:00 31 H 115/67 95 03/20/21 10:00 35 H 114/75 95 03/20/21 09:00 22 H 111/69 92 L 03/20/21 08:00 36.3 C 29 H 99/86 92 L 03/20/21 06:47 36.7 C 36 H 118/56 L 94 L 03/20/21 06:00 36.7 C 30 H 118/56 L 92 L 03/20/21 05:00 36.7 C 35 H 115/65 92 L 91 L 03/20/21 04:00 36.7 C 35 H 117/62 90 L 03/20/21 03:00 36.7 C 29 H 117/62 88 L - Problem List & Annotations (1) Acute respiratory failure with hypoxia SNOMED Code(s): 83061326, 733111676 Code(s): J96.01 - ACUTE RESPIRATORY FAILURE WITH HYPOXIA Status: Acute Current Visit: Yes (2) COVID-19 SNOMED Code(s): 315316895 Code(s): U07.1 - COVID-19 Status: Acute Current Visit: Yes (3) Hypoxia SNOMED Code(s): 878309354 Code(s): R09.02 - HYPOXEMIA Status: Acute Current Visit: Yes (4) History of tobacco use SNOMED Code(s): 900368132 Code(s): Z87.891 - PERSONAL HISTORY OF NICOTINE DEPENDENCE Status: Chronic Current Visit: Yes (5) Morbid obesity with BMI of 60.0-69.9, adult SNOMED Code(s): 527272808, 53704037615863 Code(s): E66.01 - MORBID (SEVERE) OBESITY DUE TO EXCESS CALORIES; Z68.44 - BODY MASS INDEX [BMI] 60.0-69.9, ADULT Status: Chronic Current Visit: Yes - Problem List Review Problem List Initiated/Reviewed/Updated: Yes - Plan Plan:: This 45-year-old female admitted with acute hypoxic respiratory failure, COVID- 19, and viral pneumonia 1. Acute hypoxic respiratory failure/COVID-19/viral pneumonia -Oxygen to keep sats greater than 92% wean as possible -Continue CPAP currently, monitor oxygen saturations very closely -DC Combivent and switch to, scheduled duo nebs -Dexamethasone has been switched to 10 mg IV daily on recommendations of eICU -Remdesivir 100 g IV daily done yesterday -Encourage I-S use along with self proning -Continue Lovenox -cont Baricitinib 4 mg po daily -Monitor LFTs with Remdesivir and Baricitinib therapies -Robitussin and Tessalon Perles as needed cough -Supportive care as needed -We will do continuous pulse ox -Appreciate eICU recommendations VTE prophylaxis: Lovenox twice daily due to elevated BMI GI prophylaxis: Protonix CODE STATUS: Full code Dispo: Pending improvement
[2021-03-20] MEDS: Acetaminophen 325 MG Tab PO PRN (18:20)
--- NOTE | 2021-03-20 18:54 | PN ---
[facility] Physician - Brief Progress [id number]/01/2021 18:48[facility] [place] [facility] MICK GASPAR, JAKIID+Date of Service 03/20/2021 18:48HPI/Ev ents of Note Brief eICU follow upEMR reviewed.Patient seen on camera: obese middle aged female on CPA P, tachypneic but in NAD36.2 79 107/72 93%On CPAP at 16/60% with TV 700s, previous TV on that pressur e was around 500Resp failure due to COVID PNA: decrease CPAP to 14 and continue to decrease as needed and as tolerated for goal TV around 500. Patient is at risk for barotrauma.I discussed case with be shanide Nurse by phone. There is no RT at night except in emergencies, Nurse will dial down CPAP to 14 and let us know if TV is still too high. Patient started taking some PO today, tolerated being on H F for a while.I ordered an ABG in the morning for follow up.If the patient is not taking good PO then I recommend following daily Mag and Phos.Please contact us if we may be of assistance.Interventions Major-Respiratory failure - evaluation and managementIntermediate-Communication with other healthcare providers and/or familyMinor-Clinical assessment - ordering diagnostic tests
--- NOTE | 2021-03-20 20:54 | PN ---
[facility] Physician - Brief Progress [id number]/01/2021 20:10[facility] [place] [facility] - [facility] MICK GASPAR COVID+Date of Service 03/20/2021 20:10HPI/Ev ents of Note Brief eICU follow upCPAP 14/55% with sats 88-89%.Patient seen again on camera, looks the same.TV on lower CPAP is currently in 600s, will hold off on further decrease in pressure tonight gi parisa lower sats.I spoke with Night bedside Nurse, increase FiO2 to 60% and further titrate if needed t o keep sats 90% or higher.Patient has been able to prone both on HF or CPAP, Nurse will see if patien t is able to tolerate proning tonight.Interventions Major-Respiratory failure - evaluation and manage mentIntermediate-Communication with other healthcare providers and/or family
[2021-03-21] MEDS: Albuterol/Ipratropium 3.0-0.5 MG/3 ML Neb Soln NEB SCH ×6 (01:37→22:15)
[2021-03-21 02:39] LABS: BLOOD UREA NITROGEN,BUN 18 mg/dL (7.0-18.0); CHLORIDE,CL 96 mmol/L (98-107); GLUCOSE RANDOM 126 mg/dL (74-106); SODIUM,NA 134 mmol/L (136-145)
[2021-03-21] MEDS: Acetaminophen 325 MG Tab PO PRN (03:48)
[2021-03-21] MEDS: Dexamethasone 10 MG/ML SDV IVPUSH SCH (09:21)
[2021-03-21] MEDS: Enoxaparin 40 MG/0.4 ML Syringe SUBCUT SCH ×2 (09:21→21:15)
--- NOTE | 2021-03-21 10:22 | CR ---
INDICATION: Worsening hypoxia TECHNIQUE: Chest 1 views COMPARISON: 03/19/2021 FINDINGS: Cardiovascular and mediastinum: Heart size and vasculature are normal in caliber and appearance. Lungs and pleural spaces: Persistent ill-defined bilateral pulmonary infiltrates are less prominent on today`s study. No significant effusion evident and no pneumothorax. Bones and soft tissues: No significant findings. IMPRESSION: Persistent but improved pneumonitis. No new abnormality to explain worsening hypoxia. Dictated by Edu Barclay MD @ 03/21/2021 10:21:26 AM (Electronically Signed)
[2021-03-21] MEDS: Benzonatate 100 MG Cap PO PRN (12:47)
--- NOTE | 2021-03-21 13:41 | PCM.PN ---
- General Info Date of Service: 03/21/21 Admission Dx/Problem (Free Text): Admission Diagnosis/Problem Admission Diagnosis/Problem Hypoxia Subjective Update: seen at bedside, sitting on the edge of the bed, saturating 89% on high flow, patient states that she feels little better, no chest pain no dizziness no palpitations. Functional Status: Reports: Tolerating Diet, Urinating. Denies: Ambulating - Review of Systems General: Reports: Weakness, Fatigue, Malaise. Denies: Fever Pulmonary: Reports: Shortness of Breath, Cough, Sputum, Wheezing. Denies: Hemoptysis Cardiovascular: Reports: Dyspnea on Exertion. Denies: Chest Pain, Palpitations, Orthopnea Gastrointestinal: Reports: Decreased Appetite. Denies: Abdominal Pain, Constipation, Diarrhea, Nausea, Vomiting Genitourinary: Denies: Frequency, Burning, Pain Musculoskeletal: Denies: Neck Pain, Shoulder Pain, Arm Pain Skin: Denies: Cyanosis, Jaundice, Mottled Neurological: Denies: Confusion, Dizziness, Headache - Patient Data Vitals - Most Recent: Last Vital Signs Temp 36.8 C 03/21/21 08:00 Pulse 125 H 03/21/21 03:46 Resp 22 H 03/21/21 11:00 BP 120/80 03/21/21 11:00 Pulse Ox 89 L 03/21/21 11:00 Weight - Most Recent: 142.2 kg I&O - Last 24 Hours: Intake & Output 03/20/21 03/21/21 03/21/21 22:59 06:59 14:59 Intake Total 600 2000 Output Total 650 350 Balance -50 1650 Lab Results Last 24 Hours: Laboratory Results - last 24 hr 03/21/21 03/21/21 03/21/21 Range/Units 02:00 02:00 02:00 WBC 14.39 H (4.0-11.0) K/uL RBC 4.71 (4.30-5.90) M/uL Hgb 13.8 (12.0-16.0) g/dL Hct 40.8 (36.0-46.0) % MCV 86.6 (80.0-98.0) fL MCH 29.3 (27.0-32.0) pg MCHC 33.8 (31.0-37.0) g/dL RDW Std Deviation 44.1 (28.0-62.0) fl RDW Coeff of Sandeep 14 (11.0-15.0) % Plt Count 290 (150-400) K/uL MPV 9.50 (7.40-12.00) fL Neut % (Auto) 90.9 H (48.0-80.0) % Lymph % (Auto) 6.3 L (16.0-40.0) % Alexander % (Auto) 2.6 (0.0-15.0) % Eos % (Auto) 0.1 (0.0-7.0) % Baso % (Auto) 0.1 (0.0-1.5) % Neut # (Auto) 13.1 H (1.4-5.7) K/uL Lymph # (Auto) 0.9 (0.6-2.4) K/uL Alexander # (Auto) 0.4 (0.0-0.8) K/uL Eos # (Auto) 0.0 (0.0-0.7) K/uL Baso # (Auto) 0.0 (0.0-0.1) K/uL Nucleated RBC % 0.0 /100WBC Nucleated RBCs # 0 K/uL ABG pH (7.35-7.45) ABG pCO2 (35-45) mmHG ABG pO2 (80-105) mmHG ABG HCO3 (22-26) mEq/L ABG Total CO2 (23-27) mmol/L ABG Base Excess (-2.0-3.0) Sodium 134 L (136-145) mmol/L Potassium 4.0 (3.5-5.1) mmol/L Chloride 96 L (98-107) mmol/L Carbon Dioxide 30.0 (21.0-32.0) mmol/L BUN 18 (7.0-18.0) mg/dL Creatinine 0.8 (0.6-1.0) mg/dL Est Cr Clr Drug Dosing 67.72 mL/min Estimated GFR (MDRD) > 60.0 ml/min Glucose 126 H (74-106) mg/dL Calcium 8.3 L (8.5-10.1) mg/dL Phosphorus 3.2 (2.6-4.7) mg/dL Magnesium 2.1 (1.8-2.4) mg/dL Total Bilirubin 1.4 H (0.2-1.0) mg/dL AST 41 H (15-37) IU/L ALT 52 (14-63) IU/L Alkaline Phosphatase 114 (46-116) U/L Total Protein 7.8 (6.4-8.2) g/dL Albumin 2.9 L (3.4-5.0) g/dL Globulin 4.9 H (2.6-4.0) g/dL Albumin/Globulin Ratio 0.6 L (0.9-1.6) 03/21/21 Range/Units 07:30 WBC (4.0-11.0) K/uL RBC (4.30-5.90) M/uL Hgb (12.0-16.0) g/dL Hct (36.0-46.0) % MCV (80.0-98.0) fL MCH (27.0-32.0) pg MCHC (31.0-37.0) g/dL RDW Std Deviation (28.0-62.0) fl RDW Coeff of Sandeep (11.0-15.0) % Plt Count (150-400) K/uL MPV (7.40-12.00) fL Neut % (Auto) (48.0-80.0) % Lymph % (Auto) (16.0-40.0) % Alexander % (Auto) (0.0-15.0) % Eos % (Auto) (0.0-7.0) % Baso % (Auto) (0.0-1.5) % Neut # (Auto) (1.4-5.7) K/uL Lymph # (Auto) (0.6-2.4) K/uL Alexander # (Auto) (0.0-0.8) K/uL Eos # (Auto) (0.0-0.7) K/uL Baso # (Auto) (0.0-0.1) K/uL Nucleated RBC % /100WBC Nucleated RBCs # K/uL ABG pH 7.45 (7.35-7.45) ABG pCO2 41 (35-45) mmHG ABG pO2 87 (80-105) mmHG ABG HCO3 29 H (22-26) mEq/L ABG Total CO2 25.2 (23-27) mmol/L ABG Base Excess 4.1 H (-2.0-3.0) Sodium (136-145) mmol/L Potassium (3.5-5.1) mmol/L Chloride (98-107) mmol/L Carbon Dioxide (21.0-32.0) mmol/L BUN (7.0-18.0) mg/dL Creatinine (0.6-1.0) mg/dL Est Cr Clr Drug Dosing mL/min Estimated GFR (MDRD) ml/min Glucose (74-106) mg/dL Calcium (8.5-10.1) mg/dL Phosphorus (2.6-4.7) mg/dL Magnesium (1.8-2.4) mg/dL Total Bilirubin (0.2-1.0) mg/dL AST (15-37) IU/L ALT (14-63) IU/L Alkaline Phosphatase (46-116) U/L Total Protein (6.4-8.2) g/dL Albumin (3.4-5.0) g/dL Globulin (2.6-4.0) g/dL Albumin/Globulin Ratio (0.9-1.6) Med Orders - Current: Current Medications Acetaminophen (Acetaminophen 325 Mg Tab) 650 mg PO Q4H PRN PRN Reason: Pain (Mild 1-3)/fever Last Admin: 03/21/21 03:48 Dose: 650 mg Documented by: Albuterol/Ipratropium (Albuterol/Ipratropium 3.0-0.5 Mg/3 Ml Neb Soln) 3 ml NEB Q4HRRT [facility] Last Admin: 03/21/21 13:36 Dose: 3 ml Documented by: Benzonatate (Benzonatate 100 Mg Cap) 100 mg PO Q4H PRN PRN Reason: cough Last Admin: 03/21/21 12:47 Dose: 100 mg Documented by: Dexamethasone (Dexamethasone 10 Mg/Ml Sdv) 10 mg IVPUSH DAILY [facility] Last Admin: 03/21/21 09:21 Dose: 10 mg Documented by: Enoxaparin Sodium (Enoxaparin 40 Mg/0.4 Ml Syringe) 40 mg SUBCUT Q12HR [facility] Last Admin: 03/21/21 09:21 Dose: 40 mg Documented by: Ondansetron HCl (Ondansetron 4 Mg/2 Ml Sdv) 4 mg IVPUSH Q4H PRN PRN Reason: Nausea Last Admin: 03/18/21 01:17 Dose: 4 mg Documented by: Sodium Chloride (Sodium Chloride 0.9% 2.5 Ml Syringe) 2.5 ml FLUSH ASDIRECTED PRN PRN Reason: Keep Vein Open Discontinued Medications Albuterol/Ipratropium (Albuterol/Ipratropium 4 Gm Inhalation [place]) 0 gm INH Q4HRRT [facility] Last Admin: 03/19/21 05:59 Dose: Not Given Documented by: Albuterol/Ipratropium (Albuterol/Ipratropium 3.0-0.5 Mg/3 Ml Neb Soln) 3 ml NEB Q4H PRN PRN Reason: Shortness of Breath Last Admin: 03/19/21 05:56 Dose: 3 ml Documented by: Albuterol/Ipratropium (Albuterol/Ipratropium 3.0-0.5 Mg/3 Ml Neb Soln) 3 ml NEB Q4HRRT PRN PRN Reason: SHORTNESS OF BREATH Dexamethasone (Dexamethasone 10 Mg/Ml Sdv) 10 mg IVPUSH ONETIME ONE Stop: 03/15/21 11:11 Last Admin: 03/15/21 11:35 Dose: 10 mg Documented by: Dexamethasone (Dexamethasone 4 Mg Tab) 6 mg PO DAILY@1400 [facility] Last Admin: 03/18/21 14:17 Dose: 6 mg Documented by: Furosemide (Furosemide 20 Mg/2 Ml Vial) 20 mg IVPUSH NOW ONE Stop: 03/18/21 19:08 Last Admin: 03/18/21 19:47 Dose: 20 mg Documented by: Furosemide (Furosemide 40 Mg/4 Ml Vial) 40 mg IVPUSH NOW ONE Stop: 03/19/21 06:33 Last Admin: 03/19/21 07:24 Dose: 40 mg Documented by: Guaifenesin/Codeine Phosphate (Codeine/Guaifenesin 10-100 Mg/5 Ml Syrup 5 Ml Cup) 5 ml PO Q6H PRN PRN Reason: Cough Stop: 03/19/21 04:20 Last Admin: 03/17/21 08:52 Dose: 5 ml Documented by: Remdesivir 200 mg/ Sodium (Chloride) 250 mls @ 250 mls/hr IV ONETIME ONE Stop: 03/15/21 13:59 Last Admin: 03/15/21 14:28 Dose: 250 mls/hr Documented by: Remdesivir 100 mg/ Sodium (Chloride) 100 mls @ 100 mls/hr IV Q24H [facility] Stop: 03/19/21 14:59 Last Admin: 03/19/21 13:10 Dose: 100 mls/hr Documented by: Iopamidol (Iopamidol 755 Mg/Ml 500 Ml Multipack Bottle) 100 ml IVPUSH ONETIME ONE Stop: 03/15/21 13:29 Last Admin: 03/15/21 13:30 Dose: 100 ml Documented by: Lorazepam (Lorazepam 2 Mg/Ml Sdv) 1 mg IVPUSH ONETIME ONE Stop: 03/18/21 23:26 Last Admin: 03/19/21 00:14 Dose: 1 mg Documented by: Morphine Sulfate (Morphine 2 Mg/Ml Syringe) 2 mg IVPUSH ONETIME ONE Stop: 03/19/21 06:33 Last Admin: 03/19/21 07:26 Dose: 2 mg Documented by: - Exam Quality Assessment: Supplemental Oxygen Urinary Catheter Total Time: 2Days 17Hours General: Alert, Oriented, Cooperative, Mild Distress Lungs: Normal Respiratory Effort, Decreased Breath Sounds, Crackles, Rales Cardiovascular: Regular Rate, Regular Rhythm GI/Abdominal Exam: Normal Bowel Sounds, Soft, Non-Tender - Patient Data Lab Results Last 24 hrs: Laboratory Results - last 24 hr 03/21/21 03/21/21 03/21/21 Range/Units 02:00 02:00 02:00 WBC 14.39 H (4.0-11.0) K/uL RBC 4.71 (4.30-5.90) M/uL Hgb 13.8 (12.0-16.0) g/dL Hct 40.8 (36.0-46.0) % MCV 86.6 (80.0-98.0) fL MCH 29.3 (27.0-32.0) pg MCHC 33.8 (31.0-37.0) g/dL RDW Std Deviation 44.1 (28.0-62.0) fl RDW Coeff of Sandeep 14 (11.0-15.0) % Plt Count 290 (150-400) K/uL MPV 9.50 (7.40-12.00) fL Neut % (Auto) 90.9 H (48.0-80.0) % Lymph % (Auto) 6.3 L (16.0-40.0) % Alexander % (Auto) 2.6 (0.0-15.0) % Eos % (Auto) 0.1 (0.0-7.0) % Baso % (Auto) 0.1 (0.0-1.5) % Neut # (Auto) 13.1 H (1.4-5.7) K/uL Lymph # (Auto) 0.9 (0.6-2.4) K/uL Alexander # (Auto) 0.4 (0.0-0.8) K/uL Eos # (Auto) 0.0 (0.0-0.7) K/uL Baso # (Auto) 0.0 (0.0-0.1) K/uL Nucleated RBC % 0.0 /100WBC Nucleated RBCs # 0 K/uL ABG pH (7.35-7.45) ABG pCO2 (35-45) mmHG ABG pO2 (80-105) mmHG ABG HCO3 (22-26) mEq/L ABG Total CO2 (23-27) mmol/L ABG Base Excess (-2.0-3.0) Sodium 134 L (136-145) mmol/L Potassium 4.0 (3.5-5.1) mmol/L Chloride 96 L (98-107) mmol/L Carbon Dioxide 30.0 (21.0-32.0) mmol/L BUN 18 (7.0-18.0) mg/dL Creatinine 0.8 (0.6-1.0) mg/dL Est Cr Clr Drug Dosing 67.72 mL/min Estimated GFR (MDRD) > 60.0 ml/min Glucose 126 H (74-106) mg/dL Calcium 8.3 L (8.5-10.1) mg/dL Phosphorus 3.2 (2.6-4.7) mg/dL Magnesium 2.1 (1.8-2.4) mg/dL Total Bilirubin 1.4 H (0.2-1.0) mg/dL AST 41 H (15-37) IU/L ALT 52 (14-63) IU/L Alkaline Phosphatase 114 (46-116) U/L Total Protein 7.8 (6.4-8.2) g/dL Albumin 2.9 L (3.4-5.0) g/dL Globulin 4.9 H (2.6-4.0) g/dL Albumin/Globulin Ratio 0.6 L (0.9-1.6) 03/21/21 Range/Units 07:30 WBC (4.0-11.0) K/uL RBC (4.30-5.90) M/uL Hgb (12.0-16.0) g/dL Hct (36.0-46.0) % MCV (80.0-98.0) fL MCH (27.0-32.0) pg MCHC (31.0-37.0) g/dL RDW Std Deviation (28.0-62.0) fl RDW Coeff of Sandeep (11.0-15.0) % Plt Count (150-400) K/uL MPV (7.40-12.00) fL Neut % (Auto) (48.0-80.0) % Lymph % (Auto) (16.0-40.0) % Alexander % (Auto) (0.0-15.0) % Eos % (Auto) (0.0-7.0) % Baso % (Auto) (0.0-1.5) % Neut # (Auto) (1.4-5.7) K/uL Lymph # (Auto) (0.6-2.4) K/uL Alexander # (Auto) (0.0-0.8) K/uL Eos # (Auto) (0.0-0.7) K/uL Baso # (Auto) (0.0-0.1) K/uL Nucleated RBC % /100WBC Nucleated RBCs # K/uL ABG pH 7.45 (7.35-7.45) ABG pCO2 41 (35-45) mmHG ABG pO2 87 (80-105) mmHG ABG HCO3 29 H (22-26) mEq/L ABG Total CO2 25.2 (23-27) mmol/L ABG Base Excess 4.1 H (-2.0-3.0) Sodium (136-145) mmol/L Potassium (3.5-5.1) mmol/L Chloride (98-107) mmol/L Carbon Dioxide (21.0-32.0) mmol/L BUN (7.0-18.0) mg/dL Creatinine (0.6-1.0) mg/dL Est Cr Clr Drug Dosing mL/min Estimated GFR (MDRD) ml/min Glucose (74-106) mg/dL Calcium (8.5-10.1) mg/dL Phosphorus (2.6-4.7) mg/dL Magnesium (1.8-2.4) mg/dL Total Bilirubin (0.2-1.0) mg/dL AST (15-37) IU/L ALT (14-63) IU/L Alkaline Phosphatase (46-116) U/L Total Protein (6.4-8.2) g/dL Albumin (3.4-5.0) g/dL Globulin (2.6-4.0) g/dL Albumin/Globulin Ratio (0.9-1.6) Result Diagrams: 03/21/21 02:00 03/21/21 02:00 Sepsis Event Note - Evaluation Sepsis Screening Result: Possible Sepsis Risk - Focused Exam Vital Signs: Vital Signs Temp Temp Pulse Resp BP Pulse Ox Pulse Ox 03/21/21 11:00 22 H 120/80 89 L 03/21/21 10:00 21 H 109/67 90 L 03/21/21 09:00 30 H 108/72 93 L 03/21/21 08:00 36.8 C 25 H 107/64 94 L 03/21/21 07:00 37.5 C 39 H 88/61 L 90 L 03/21/21 06:00 37.5 C 37 H 95/63 95 90 L 03/21/21 05:00 37.5 C 37 H 91/53 L 91 L 03/21/21 04:00 38.1 C 34 H 121/73 89 L 03/21/21 03:48 38.1 C 03/21/21 03:46 38.1 C 125 H 41 H 125/51 L 03/21/21 03:00 37.7 C 36 H 126/51 L 90 L 03/21/21 02:00 37.5 C 30 H 119/79 88 L - Problem List & Annotations (1) Acute respiratory failure with hypoxia SNOMED Code(s): 55885629, 456313952 Code(s): J96.01 - ACUTE RESPIRATORY FAILURE WITH HYPOXIA Status: Acute Current Visit: Yes (2) COVID-19 SNOMED Code(s): 937264625 Code(s): U07.1 - COVID-19 Status: Acute Current Visit: Yes (3) Hypoxia SNOMED Code(s): 201590006 Code(s): R09.02 - HYPOXEMIA Status: Acute Current Visit: Yes (4) History of tobacco use SNOMED Code(s): 778567709 Code(s): Z87.891 - PERSONAL HISTORY OF NICOTINE DEPENDENCE Status: Chronic Current Visit: Yes (5) Morbid obesity with BMI of 60.0-69.9, adult SNOMED Code(s): 618750483, 74497986966342 Code(s): E66.01 - MORBID (SEVERE) OBESITY DUE TO EXCESS CALORIES; Z68.44 - BODY MASS INDEX [BMI] 60.0-69.9, ADULT Status: Chronic Current Visit: Yes - Problem List Review Problem List Initiated/Reviewed/Updated: Yes - Plan Plan:: This 45-year-old female admitted with acute hypoxic respiratory failure, COVID- 19, and viral pneumonia 1. Acute hypoxic respiratory failure/COVID-19/viral pneumonia -Oxygen to keep sats greater than 92% wean as possible -Continue heated high flow right now, keep sats 92% or greater -Continue scheduled DuoNebs -Dexamethasone has been switched to 10 mg IV daily on recommendations of eICU -Remdesivir 100 g IV daily done yesterday -Encourage I-S use along with self proning -Continue Lovenox -cont Baricitinib 4 mg po daily -Monitor LFTs with Remdesivir and Baricitinib therapies -Robitussin and Tessalon Perles as needed cough -Supportive care as needed -Repeat x-ray this morning showed improvement in pneumonitis, if no improvement in oxygen demand in next 24 hours will probably get a CTA of the chest. -ABG noted this morning -Appreciate eICU recommendations VTE prophylaxis: Lovenox twice daily due to elevated BMI GI prophylaxis: Protonix CODE STATUS: Full code Dispo: Pending improvement
[2021-03-22] MEDS: Albuterol/Ipratropium 3.0-0.5 MG/3 ML Neb Soln NEB SCH ×6 (02:00→22:00)
[2021-03-22 06:49] LABS: BLOOD UREA NITROGEN,BUN 17 mg/dL (7.0-18.0); CARBON DIOXIDE,CO2 26.7 mmol/L (21.0-32.0); CHLORIDE,CL 95 mmol/L (98-107); GLUCOSE RANDOM 128 mg/dL (74-106); POTASSIUM,K 4.5 mmol/L (3.5-5.1); SODIUM,NA 133 mmol/L (136-145)
[2021-03-22] MEDS: Enoxaparin 40 MG/0.4 ML Syringe SUBCUT SCH ×2 (09:25→21:00)
[2021-03-22] MEDS: Dexamethasone 10 MG/ML SDV IVPUSH SCH (09:30)
[2021-03-22] MEDS: Benzonatate 100 MG Cap PO PRN ×2 (10:47→23:33)
--- NOTE | 2021-03-22 13:39 | PN ---
[facility] Physician - Brief Progress [id number]/03/2021 13:37[facility] Deion Acosta, [place] - KIKIN (MONTSE) - MWN MICK GASPAR COVID+Date of Service 03/22/2021 13:37HPI/Ev ents of Note eICU Brief Progress [id number] admitted for hypoxemic respiratory failure attributed to COV ID, on NIV.Camera exam: Patient laying in bed, vitals monitor reviewed. On CPAP, patient is pulling T V in 1000s rangeeICU Recommendations:Patient continues to remain at risk for barotrauma given elevate d TV on NIV. No new recommendations at this time. I anticipate high TV are predominantly patient gene rated. Can consider transition to HFNC if patient able to tolerate and does not desaturateContinue CO VID specific therapies, including corticosteroids and baracitinibReasonable to consider diuresis to t arget a neutral to net negative fluid balanceIf patient unable to tolerate NIV, and/or unable to enga ge in PO intake safely (ie including transition to HFNC) without hypoxia (per my review of recorded I /O in EMR patient has been able to ingest a little more than 2L orally today and yesterday) recommend intubationeICU will continue to follow and assist as desiredInterventions Major-Respiratory failure - evaluation and management
[2021-03-22] MEDS: Codeine/guaiFENesin 10-100 MG/5 ML Syrup 5 ML Cup PO PRN ×2 (14:18→23:32)
--- NOTE | 2021-03-22 14:33 | PCM.PN ---
- General Info Date of Service: 03/23/21 Admission Dx/Problem (Free Text): Admission Diagnosis/Problem Admission Diagnosis/Problem Hypoxia Subjective Update: seen at bedside, sitting on the edge of the bed, saturating 89% on NIV/CPAP, patient states that she feels little better, no chest pain no dizziness no palpitations. Functional Status: Reports: Tolerating Diet, Urinating. Denies: Ambulating - Review of Systems General: Reports: Weakness, Fatigue. Denies: Fever Pulmonary: Reports: Shortness of Breath, Cough, Sputum Cardiovascular: Reports: Dyspnea on Exertion. Denies: Chest Pain, Palpitations Gastrointestinal: Reports: Constipation. Denies: Abdominal Pain, Decreased Appetite Genitourinary: Denies: Dysuria, Frequency, Burning Musculoskeletal: Denies: Neck Pain, Shoulder Pain, Arm Pain Skin: Denies: Cyanosis, Jaundice, Mottled - Patient Data Vitals - Most Recent: Last Vital Signs Temp 36.3 C 03/22/21 12:00 Pulse 125 H 03/21/21 03:46 Resp 29 H 03/22/21 13:00 BP 125/76 03/22/21 13:00 Pulse Ox 94 L 03/22/21 13:00 Weight - Most Recent: 143.015 kg I&O - Last 24 Hours: Intake & Output 03/21/21 03/22/21 03/22/21 22:59 06:59 14:59 Intake Total 850 1500 Output Total 650 800 Balance 200 700 Lab Results Last 24 Hours: Laboratory Results - last 24 hr 03/22/21 03/22/21 Range/Units 05:48 05:48 WBC 11.87 H (4.0-11.0) K/uL RBC 4.53 (4.30-5.90) M/uL Hgb 12.9 (12.0-16.0) g/dL Hct 39.0 (36.0-46.0) % MCV 86.1 (80.0-98.0) fL MCH 28.5 (27.0-32.0) pg MCHC 33.1 (31.0-37.0) g/dL RDW Std Deviation 43.7 (28.0-62.0) fl RDW Coeff of Sandeep 14 (11.0-15.0) % Plt Count 279 (150-400) K/uL MPV 9.60 (7.40-12.00) fL Neut % (Auto) 86.9 H (48.0-80.0) % Lymph % (Auto) 10.1 L (16.0-40.0) % [place] % (Auto) 2.4 (0.0-15.0) % Eos % (Auto) 0.5 (0.0-7.0) % Baso % (Auto) 0.1 (0.0-1.5) % Neut # (Auto) 10.3 H (1.4-5.7) K/uL Lymph # (Auto) 1.2 (0.6-2.4) K/uL [place] # (Auto) 0.3 (0.0-0.8) K/uL Eos # (Auto) 0.1 (0.0-0.7) K/uL Baso # (Auto) 0.0 (0.0-0.1) K/uL Nucleated RBC % 0.0 /100WBC Nucleated RBCs # 0 K/uL Sodium 133 L (136-145) mmol/L Potassium 4.5 (3.5-5.1) mmol/L Chloride 95 L (98-107) mmol/L Carbon Dioxide 26.7 (21.0-32.0) mmol/L BUN 17 (7.0-18.0) mg/dL Creatinine 0.5 L (0.6-1.0) mg/dL Est Cr Clr Drug Dosing 108.35 mL/min Estimated GFR (MDRD) > 60.0 ml/min Glucose 128 H (74-106) mg/dL Calcium 8.2 L (8.5-10.1) mg/dL Phosphorus 3.7 (2.6-4.7) mg/dL Magnesium 2.5 H (1.8-2.4) mg/dL Med Orders - Current: Current Medications Acetaminophen (Acetaminophen 325 Mg Tab) 650 mg PO Q4H PRN PRN Reason: Pain (Mild 1-3)/fever Last Admin: 03/21/21 03:48 Dose: 650 mg Documented by: Albuterol/Ipratropium (Albuterol/Ipratropium 3.0-0.5 Mg/3 Ml Neb Soln) 3 ml NEB Q4HRRT [facility] Last Admin: 03/22/21 14:18 Dose: 3 ml Documented by: Benzonatate (Benzonatate 100 Mg Cap) 100 mg PO Q4H PRN PRN Reason: cough Last Admin: 03/22/21 10:47 Dose: 100 mg Documented by: Dexamethasone (Dexamethasone 10 Mg/Ml Sdv) 10 mg IVPUSH DAILY [facility] Last Admin: 03/22/21 09:30 Dose: 10 mg Documented by: Enoxaparin Sodium (Enoxaparin 40 Mg/0.4 Ml Syringe) 40 mg SUBCUT Q12HR [facility] Last Admin: 03/22/21 09:25 Dose: 40 mg Documented by: Guaifenesin/Codeine Phosphate (Codeine/Guaifenesin 10-100 Mg/5 Ml Syrup 5 Ml Cup) 10 ml PO Q4H PRN PRN Reason: Cough Last Admin: 03/22/21 14:18 Dose: 10 ml Documented by: Ondansetron HCl (Ondansetron 4 Mg/2 Ml Sdv) 4 mg IVPUSH Q4H PRN PRN Reason: Nausea Last Admin: 03/18/21 01:17 Dose: 4 mg Documented by: Sodium Chloride (Sodium Chloride 0.9% 2.5 Ml Syringe) 2.5 ml FLUSH ASDIRECTED PRN PRN Reason: Keep Vein Open Discontinued Medications Albuterol/Ipratropium (Albuterol/Ipratropium 4 Gm Inhalation [place]) 0 gm INH Q4HRRT [facility] Last Admin: 03/19/21 05:59 Dose: Not Given Documented by: Albuterol/Ipratropium (Albuterol/Ipratropium 3.0-0.5 Mg/3 Ml Neb Soln) 3 ml NEB Q4H PRN PRN Reason: Shortness of Breath Last Admin: 03/19/21 05:56 Dose: 3 ml Documented by: Albuterol/Ipratropium (Albuterol/Ipratropium 3.0-0.5 Mg/3 Ml Neb Soln) 3 ml NEB Q4HRRT PRN PRN Reason: SHORTNESS OF BREATH Dexamethasone (Dexamethasone 10 Mg/Ml Sdv) 10 mg IVPUSH ONETIME ONE Stop: 03/15/21 11:11 Last Admin: 03/15/21 11:35 Dose: 10 mg Documented by: Dexamethasone (Dexamethasone 4 Mg Tab) 6 mg PO DAILY@1400 [facility] Last Admin: 03/18/21 14:17 Dose: 6 mg Documented by: Furosemide (Furosemide 20 Mg/2 Ml Vial) 20 mg IVPUSH NOW ONE Stop: 03/18/21 19:08 Last Admin: 03/18/21 19:47 Dose: 20 mg Documented by: Furosemide (Furosemide 40 Mg/4 Ml Vial) 40 mg IVPUSH NOW ONE Stop: 03/19/21 06:33 Last Admin: 03/19/21 07:24 Dose: 40 mg Documented by: Guaifenesin/Codeine Phosphate (Codeine/Guaifenesin 10-100 Mg/5 Ml Syrup 5 Ml Cup) 5 ml PO Q6H PRN PRN Reason: Cough Stop: 03/19/21 04:20 Last Admin: 03/17/21 08:52 Dose: 5 ml Documented by: Remdesivir 200 mg/ Sodium (Chloride) 250 mls @ 250 mls/hr IV ONETIME ONE Stop: 03/15/21 13:59 Last Admin: 03/15/21 14:28 Dose: 250 mls/hr Documented by: Remdesivir 100 mg/ Sodium (Chloride) 100 mls @ 100 mls/hr IV Q24H [facility] Stop: 03/19/21 14:59 Last Admin: 03/19/21 13:10 Dose: 100 mls/hr Documented by: Iopamidol (Iopamidol 755 Mg/Ml 500 Ml Multipack Bottle) 100 ml IVPUSH ONETIME ONE Stop: 03/15/21 13:29 Last Admin: 03/15/21 13:30 Dose: 100 ml Documented by: Lorazepam (Lorazepam 2 Mg/Ml Sdv) 1 mg IVPUSH ONETIME ONE Stop: 03/18/21 23:26 Last Admin: 03/19/21 00:14 Dose: 1 mg Documented by: Morphine Sulfate (Morphine 2 Mg/Ml Syringe) 2 mg IVPUSH ONETIME ONE Stop: 03/19/21 06:33 Last Admin: 03/19/21 07:26 Dose: 2 mg Documented by: - Exam Quality Assessment: Supplemental Oxygen Urinary Catheter Total Time: 2Days 19Hours General: Alert, Oriented, Cooperative, Mild Distress Lungs: Decreased Breath Sounds, Crackles Cardiovascular: Regular Rate, Regular Rhythm GI/Abdominal Exam: Normal Bowel Sounds, Soft, Non-Tender - Patient Data Lab Results Last 24 hrs: Laboratory Results - last 24 hr 03/22/21 03/22/21 Range/Units 05:48 05:48 WBC 11.87 H (4.0-11.0) K/uL RBC 4.53 (4.30-5.90) M/uL Hgb 12.9 (12.0-16.0) g/dL Hct 39.0 (36.0-46.0) % MCV 86.1 (80.0-98.0) fL MCH 28.5 (27.0-32.0) pg MCHC 33.1 (31.0-37.0) g/dL RDW Std Deviation 43.7 (28.0-62.0) fl RDW Coeff of Sandeep 14 (11.0-15.0) % Plt Count 279 (150-400) K/uL MPV 9.60 (7.40-12.00) fL Neut % (Auto) 86.9 H (48.0-80.0) % Lymph % (Auto) 10.1 L (16.0-40.0) % [place] % (Auto) 2.4 (0.0-15.0) % Eos % (Auto) 0.5 (0.0-7.0) % Baso % (Auto) 0.1 (0.0-1.5) % Neut # (Auto) 10.3 H (1.4-5.7) K/uL Lymph # (Auto) 1.2 (0.6-2.4) K/uL [place] # (Auto) 0.3 (0.0-0.8) K/uL Eos # (Auto) 0.1 (0.0-0.7) K/uL Baso # (Auto) 0.0 (0.0-0.1) K/uL Nucleated RBC % 0.0 /100WBC Nucleated RBCs # 0 K/uL Sodium 133 L (136-145) mmol/L Potassium 4.5 (3.5-5.1) mmol/L Chloride 95 L (98-107) mmol/L Carbon Dioxide 26.7 (21.0-32.0) mmol/L BUN 17 (7.0-18.0) mg/dL Creatinine 0.5 L (0.6-1.0) mg/dL Est Cr Clr Drug Dosing 108.35 mL/min Estimated GFR (MDRD) > 60.0 ml/min Glucose 128 H (74-106) mg/dL Calcium 8.2 L (8.5-10.1) mg/dL Phosphorus 3.7 (2.6-4.7) mg/dL Magnesium 2.5 H (1.8-2.4) mg/dL Result Diagrams: 03/22/21 05:48 03/22/21 05:48 Sepsis Event Note - Evaluation Sepsis Screening Result: Possible Sepsis Risk - Focused Exam Vital Signs: Vital Signs Temp Resp BP Pulse Ox Pulse Ox 03/22/21 13:00 29 H 125/76 94 L 03/22/21 12:00 36.3 C 21 H 113/80 93 L 03/22/21 11:00 22 H 119/73 88 L 03/22/21 10:00 26 H 106/62 89 L 03/22/21 09:00 36.1 C 27 H 114/68 92 L 03/22/21 08:00 23 H 113/58 L 92 L 03/22/21 07:00 32 H 111/54 L 94 L 03/22/21 06:00 36.7 C 33 H 116/62 92 L 93 L 03/22/21 05:00 36.7 C 34 H 93 L 03/22/21 04:00 36.7 C 37 H 93 L 03/22/21 03:00 36.7 C 13 105/69 93 L - Problem List & Annotations (1) Acute respiratory failure with hypoxia SNOMED Code(s): 04153569, 192835138 Code(s): J96.01 - ACUTE RESPIRATORY FAILURE WITH HYPOXIA Status: Acute Current Visit: Yes (2) COVID-19 SNOMED Code(s): 345667194 Code(s): U07.1 - COVID-19 Status: Acute Current Visit: Yes (3) Hypoxia SNOMED Code(s): 144207923 Code(s): R09.02 - HYPOXEMIA Status: Acute Current Visit: Yes (4) History of tobacco use SNOMED Code(s): 210176105 Code(s): Z87.891 - PERSONAL HISTORY OF NICOTINE DEPENDENCE Status: Chronic Current Visit: Yes (5) Morbid obesity with BMI of 60.0-69.9, adult SNOMED Code(s): 454862867, 09902404365032 Code(s): E66.01 - MORBID (SEVERE) OBESITY DUE TO EXCESS CALORIES; Z68.44 - B CHANDRAK[place] MASS INDEX [BMI] 60.0-69.9, ADULT Status: Chronic Current Visit: Yes - Problem List Review Problem List Initiated/Reviewed/Updated: Yes - Plan Plan:: This 45-year-old female admitted with acute hypoxic respiratory failure, COVID- 19, and viral pneumonia 1. Acute hypoxic respiratory failure/COVID-19/viral pneumonia -Oxygen to keep sats greater than 92% wean as possible -Tidal volume continues to be high in thousands, will try to wean off patient to high flow nasal cannula if able to tolerate -Continue NIV, keep sats 92% or greater -Continue scheduled DuoNebs -Dexamethasone has been switched to 10 mg IV daily on recommendations of eICU -Remdesivir 100 g IV daily done yesterday -Encourage I-S use along with self proning -Continue Lovenox -cont Baricitinib 4 mg po daily -Monitor LFTs with Remdesivir and Baricitinib therapies -Robitussin and Tessalon Perles as needed cough -Supportive care as needed -Repeat x-ray showed improvement in pneumonitis, -Appreciate eICU recommendations VTE prophylaxis: Lovenox twice daily due to elevated BMI GI prophylaxis: Protonix CODE STATUS: Full code Dispo: Pending improvement
[2021-03-22] MEDS: Docusate Sodium 100 MG Cap PO PRN (17:28)
[2021-03-23] MEDS: Albuterol/Ipratropium 3.0-0.5 MG/3 ML Neb Soln NEB SCH ×6 (02:00→21:00)
[2021-03-23 06:35] LABS: BLOOD UREA NITROGEN,BUN 18 mg/dL (7.0-18.0); CARBON DIOXIDE,CO2 29.2 mmol/L (21.0-32.0); CHLORIDE,CL 97 mmol/L (98-107); GLUCOSE RANDOM 119 mg/dL (74-106); POTASSIUM,K 4.4 mmol/L (3.5-5.1); SODIUM,NA 133 mmol/L (136-145)
[2021-03-23] MEDS: Enoxaparin 40 MG/0.4 ML Syringe SUBCUT SCH ×2 (09:12→21:13)
[2021-03-23] MEDS: Dexamethasone 10 MG/ML SDV IVPUSH SCH (09:12)
[2021-03-23] MEDS: Codeine/guaiFENesin 10-100 MG/5 ML Syrup 5 ML Cup PO PRN ×2 (11:02→22:53)
--- NOTE | 2021-03-23 12:43 | PCM.PN ---
- General Info Date of Service: 03/23/21 Admission Dx/Problem (Free Text): Admission Diagnosis/Problem Admission Diagnosis/Problem Hypoxia Subjective Update: seen at bedside, sitting on the edge of the bed, saturating 90% on heated high flow no chest pain no dizziness no palpitations. States that she is having increasing coughing spells which are making her tired otherwise feels fine. Functional Status: Reports: Tolerating Diet, Ambulating, Urinating - Review of Systems General: Reports: Weakness, Fatigue, Malaise. Denies: Fever Pulmonary: Reports: Shortness of Breath, Cough, Sputum. Denies: Pleuritic Chest Pain Cardiovascular: Reports: Dyspnea on Exertion. Denies: Chest Pain, Palpitations Gastrointestinal: Denies: Abdominal Pain, Constipation, Decreased Appetite Genitourinary: Denies: Dysuria, Frequency, Burning, Pain Musculoskeletal: Denies: Neck Pain, Shoulder Pain, Arm Pain Skin: Denies: Cyanosis, Jaundice, Mottled Neurological: Denies: Confusion, Dizziness, Headache - Patient Data Vitals - Most Recent: Last Vital Signs Temp 36.5 C 03/23/21 08:00 Pulse 125 H 03/21/21 03:46 Resp 22 H 03/23/21 11:00 BP 110/58 L 03/23/21 11:00 Pulse Ox 89 L 03/23/21 11:00 Weight - Most Recent: 142.651 kg I&O - Last 24 Hours: Intake & Output 03/22/21 03/23/21 03/23/21 22:59 06:59 14:59 Intake Total 1200 800 Output Total 1100 650 Balance 100 150 Lab Results Last 24 Hours: Laboratory Results - last 24 hr 03/23/21 03/23/21 Range/Units 05:43 05:43 WBC 12.56 H (4.0-11.0) K/uL RBC 4.55 (4.30-5.90) M/uL Hgb 13.0 (12.0-16.0) g/dL Hct 39.5 (36.0-46.0) % MCV 86.8 (80.0-98.0) fL MCH 28.6 (27.0-32.0) pg MCHC 32.9 (31.0-37.0) g/dL RDW Std Deviation 44.1 (28.0-62.0) fl RDW Coeff of Sandeep 14 (11.0-15.0) % Plt Count 344 (150-400) K/uL MPV 9.80 (7.40-12.00) fL Neut % (Auto) 84.5 H (48.0-80.0) % Lymph % (Auto) 11.5 L (16.0-40.0) % [place] % (Auto) 2.5 (0.0-15.0) % Eos % (Auto) 1.4 (0.0-7.0) % Baso % (Auto) 0.1 (0.0-1.5) % Neut # (Auto) 10.6 H (1.4-5.7) K/uL Lymph # (Auto) 1.5 (0.6-2.4) K/uL [place] # (Auto) 0.3 (0.0-0.8) K/uL Eos # (Auto) 0.2 (0.0-0.7) K/uL Baso # (Auto) 0.0 (0.0-0.1) K/uL Nucleated RBC % 0.0 /100WBC Nucleated RBCs # 0 K/uL Sodium 133 L (136-145) mmol/L Potassium 4.4 (3.5-5.1) mmol/L Chloride 97 L (98-107) mmol/L Carbon Dioxide 29.2 (21.0-32.0) mmol/L BUN 18 (7.0-18.0) mg/dL Creatinine 0.6 (0.6-1.0) mg/dL Est Cr Clr Drug Dosing 90.29 mL/min Estimated GFR (MDRD) > 60.0 ml/min Glucose 119 H (74-106) mg/dL Calcium 8.4 L (8.5-10.1) mg/dL Phosphorus 4.4 (2.6-4.7) mg/dL Magnesium 2.3 (1.8-2.4) mg/dL Total Bilirubin 0.6 (0.2-1.0) mg/dL AST 34 (15-37) IU/L ALT 41 (14-63) IU/L Alkaline Phosphatase 91 (46-116) U/L Total Protein 7.4 (6.4-8.2) g/dL Albumin 2.5 L (3.4-5.0) g/dL Globulin 4.9 H (2.6-4.0) g/dL Albumin/Globulin Ratio 0.5 L (0.9-1.6) Med Orders - Current: Current Medications Acetaminophen (Acetaminophen 325 Mg Tab) 650 mg PO Q4H PRN PRN Reason: Pain (Mild 1-3)/fever Last Admin: 03/21/21 03:48 Dose: 650 mg Documented by: Albuterol/Ipratropium (Albuterol/Ipratropium 3.0-0.5 Mg/3 Ml Neb Soln) [address] [facility] Last Admin: 03/23/21 09:17 Dose: 3 ml Documented by: Benzonatate (Benzonatate 100 Mg Cap) 100 mg PO Q4H PRN PRN Reason: cough Last Admin: 03/22/21 23:33 Dose: 100 mg Documented by: Dexamethasone (Dexamethasone 10 Mg/Ml Sdv) [address] [facility] Last Admin: 03/23/21 09:12 Dose: 10 mg Documented by: Docusate Sodium (Docusate Sodium 100 Mg Cap) 100 mg PO BID PRN PRN Reason: Constipation Last Admin: 03/22/21 17:28 Dose: 100 mg Documented by: Enoxaparin Sodium (Enoxaparin 40 Mg/0.4 Ml Syringe) [address] [facility] Last Admin: 03/23/21 09:12 Dose: 40 mg Documented by: Guaifenesin/Codeine Phosphate (Codeine/Guaifenesin 10-100 Mg/5 Ml Syrup 5 Ml Cup) 10 ml PO Q4H PRN PRN Reason: Cough Last Admin: 03/23/21 11:02 Dose: 10 ml Documented by: Ondansetron HCl (Ondansetron 4 Mg/2 Ml Sdv) 4 mg IVPUSH Q4H PRN PRN Reason: Nausea Last Admin: 03/18/21 01:17 Dose: 4 mg Documented by: Promethazine HCl/Codeine (Codeine/Promethazine 10-6.25 Mg/5 Ml Syrup 5 Ml Ud Syringe) [address] [facility] Sodium Chloride (Sodium Chloride 0.9% 2.5 Ml Syringe) 2.5 ml FLUSH ASDIRECTED PRN PRN Reason: Keep Vein Open Discontinued Medications Albuterol/Ipratropium (Albuterol/Ipratropium 4 Gm Inhalation [place]) 0 gm INH Q4HRRT [facility] Last Admin: 03/19/21 05:59 Dose: Not Given Documented by: Albuterol/Ipratropium (Albuterol/Ipratropium 3.0-0.5 Mg/3 Ml Neb Soln) 3 ml NEB Q4H PRN PRN Reason: Shortness of Breath Last Admin: 03/19/21 05:56 Dose: 3 ml Documented by: Albuterol/Ipratropium (Albuterol/Ipratropium 3.0-0.5 Mg/3 Ml Neb Soln) 3 ml NEB Q4HRRT PRN PRN Reason: SHORTNESS OF BREATH Dexamethasone (Dexamethasone 10 Mg/Ml Sdv) 10 mg IVPUSH ONETIME ONE Stop: 03/15/21 11:11 Last Admin: 03/15/21 11:35 Dose: 10 mg Documented by: Dexamethasone (Dexamethasone 4 Mg Tab) 6 mg PO DAILY@1400 [facility] Last Admin: 03/18/21 14:17 Dose: 6 mg Documented by: Furosemide (Furosemide 20 Mg/2 Ml Vial) 20 mg IVPUSH NOW ONE Stop: 03/18/21 19:08 Last Admin: 03/18/21 19:47 Dose: 20 mg Documented by: Furosemide (Furosemide 40 Mg/4 Ml Vial) 40 mg IVPUSH NOW ONE Stop: 03/19/21 06:33 Last Admin: 03/19/21 07:24 Dose: 40 mg Documented by: Guaifenesin/Codeine Phosphate (Codeine/Guaifenesin 10-100 Mg/5 Ml Syrup 5 Ml Cup) 5 ml PO Q6H PRN PRN Reason: Cough Stop: 03/19/21 04:20 Last Admin: 03/17/21 08:52 Dose: 5 ml Documented by: Remdesivir 200 mg/ Sodium (Chloride) 250 mls @ 250 mls/hr IV ONETIME ONE Stop: 03/15/21 13:59 Last Admin: 03/15/21 14:28 Dose: 250 mls/hr Documented by: Remdesivir 100 mg/ Sodium (Chloride) 100 mls @ 100 mls/hr IV Q24H [facility] Stop: 03/19/21 14:59 Last Admin: 03/19/21 13:10 Dose: 100 mls/hr Documented by: Iopamidol (Iopamidol 755 Mg/Ml 500 Ml Multipack Bottle) 100 ml IVPUSH ONETIME ONE Stop: 03/15/21 13:29 Last Admin: 03/15/21 13:30 Dose: 100 ml Documented by: Lorazepam (Lorazepam 2 Mg/Ml Sdv) 1 mg IVPUSH ONETIME ONE Stop: 03/18/21 23:26 Last Admin: 03/19/21 00:14 Dose: 1 mg Documented by: Morphine Sulfate (Morphine 2 Mg/Ml Syringe) 2 mg IVPUSH ONETIME ONE Stop: 03/19/21 06:33 Last Admin: 03/19/21 07:26 Dose: 2 mg Documented by: - Exam Quality Assessment: Supplemental Oxygen Urinary Catheter Total Time: 2Days 19Hours General: Alert, Oriented, Cooperative, Mild Distress Lungs: Normal Respiratory Effort, Decreased Breath Sounds, Rales Cardiovascular: Regular Rate, Regular Rhythm GI/Abdominal Exam: Normal Bowel Sounds, Soft, Non-Tender Extremities: Normal Inspection, Normal Range of Motion, Non-Tender, No Pedal Edema - Patient Data Lab Results Last 24 hrs: Laboratory Results - last 24 hr 03/23/21 03/23/21 Range/Units 05:43 05:43 WBC 12.56 H (4.0-11.0) K/uL RBC 4.55 (4.30-5.90) M/uL Hgb 13.0 (12.0-16.0) g/dL Hct 39.5 (36.0-46.0) % MCV 86.8 (80.0-98.0) fL MCH 28.6 (27.0-32.0) pg MCHC 32.9 (31.0-37.0) g/dL RDW Std Deviation 44.1 (28.0-62.0) fl RDW Coeff of Sandeep 14 (11.0-15.0) % Plt Count 344 (150-400) K/uL MPV 9.80 (7.40-12.00) fL Neut % (Auto) 84.5 H (48.0-80.0) % Lymph % (Auto) 11.5 L (16.0-40.0) % [place] % (Auto) 2.5 (0.0-15.0) % Eos % (Auto) 1.4 (0.0-7.0) % Baso % (Auto) 0.1 (0.0-1.5) % Neut # (Auto) 10.6 H (1.4-5.7) K/uL Lymph # (Auto) 1.5 (0.6-2.4) K/uL [place] # (Auto) 0.3 (0.0-0.8) K/uL Eos # (Auto) 0.2 (0.0-0.7) K/uL Baso # (Auto) 0.0 (0.0-0.1) K/uL Nucleated RBC % 0.0 /100WBC Nucleated RBCs # 0 K/uL Sodium 133 L (136-145) mmol/L Potassium 4.4 (3.5-5.1) mmol/L Chloride 97 L (98-107) mmol/L Carbon Dioxide 29.2 (21.0-32.0) mmol/L BUN 18 (7.0-18.0) mg/dL Creatinine 0.6 (0.6-1.0) mg/dL Est Cr Clr Drug Dosing 90.29 mL/min Estimated GFR (MDRD) > 60.0 ml/min Glucose 119 H (74-106) mg/dL Calcium 8.4 L (8.5-10.1) mg/dL Phosphorus 4.4 (2.6-4.7) mg/dL Magnesium 2.3 (1.8-2.4) mg/dL Total Bilirubin 0.6 (0.2-1.0) mg/dL AST 34 (15-37) IU/L ALT 41 (14-63) IU/L Alkaline Phosphatase 91 (46-116) U/L Total Protein 7.4 (6.4-8.2) g/dL Albumin 2.5 L (3.4-5.0) g/dL Globulin 4.9 H (2.6-4.0) g/dL Albumin/Globulin Ratio 0.5 L (0.9-1.6) Result Diagrams: 03/23/21 05:43 03/23/21 05:43 Sepsis Event Note - Evaluation Sepsis Screening Result: Possible Sepsis Risk - Focused Exam Vital Signs: Vital Signs Temp Resp BP Pulse Ox 03/23/21 11:00 22 H 110/58 L 89 L 03/23/21 10:00 24 H 109/53 L 94 L 03/23/21 09:00 21 H 107/47 L 94 L 03/23/21 08:00 36.5 C 20 101/46 L 95 03/23/21 06:57 36.6 C 18 119/74 94 L 03/23/21 06:40 87 L 03/23/21 06:00 22 H 113/71 91 L 03/23/21 05:00 36.6 C 36 H 124/79 86 L 03/23/21 04:00 36.6 C 29 H 142/80 H 92 L 03/23/21 03:00 36.7 C 28 H 120/79 91 L 03/23/21 02:00 36.7 C 28 H 122/80 92 L 03/23/21 01:00 35 H 93 L - Problem List & Annotations (1) Acute respiratory failure with hypoxia SNOMED Code(s): 11970298, 735349999 Code(s): J96.01 - ACUTE RESPIRATORY FAILURE WITH HYPOXIA Status: Acute Current Visit: Yes (2) COVID-19 SNOMED Code(s): 891225091 Code(s): U07.1 - COVID-19 Status: Acute Current Visit: Yes (3) Hypoxia SNOMED Code(s): 344934150 Code(s): R09.02 - HYPOXEMIA Status: Acute Current Visit: Yes (4) History of tobacco use SNOMED Code(s): 813879756 Code(s): Z87.891 - PERSONAL HISTORY OF NICOTINE DEPENDENCE Status: Chronic Current Visit: Yes (5) Morbid obesity with BMI of 60.0-69.9, adult SNOMED Code(s): 720393180, 14264991381582 Code(s): E66.01 - MORBID (SEVERE) OBESITY DUE TO EXCESS CALORIES; Z68.44 - BODY MASS INDEX [BMI] 60.0-69.9, ADULT Status: Chronic Current Visit: Yes - Problem List Review Problem List Initiated/Reviewed/Updated: Yes - My Orders Last 24 Hours: My Active Orders 03/22/21 16:47 Docusate Sodium [Colace] 100 mg PO BID PRN 03/23/21 11:42 CTA Chest W WO Contrast [Ang Chest] [CT] Routine 03/23/21 16:00 Codeine/Promethazine HCl [Phenergan with Codeine] 5 ml PO Q4HR - Plan Plan:: This 45-year-old female admitted with acute hypoxic respiratory failure, COVID- 19, and viral pneumonia 1. Acute hypoxic respiratory failure/COVID-19/viral pneumonia -Oxygen via high flow or cpap to keep sats greater than 92% wean as possible -Continue scheduled DuoNebs -Dexamethasone has been switched to 10 mg IV daily on recommendations of eICU -Remdesivir 100 g IV daily done yesterday -Encourage I-S use along with self proning -Continue Lovenox -cont Baricitinib 4 mg po daily -Monitor LFTs with Remdesivir and Baricitinib therapies -Tessalon Perles as needed cough -We will promethazine with codeine for better cough control -Supportive care as needed -will obtain a CTA of the chest as patient is tolerating heated high flow right now VTE prophylaxis: Lovenox twice daily due to elevated BMI GI prophylaxis: Protonix CODE STATUS: Full code Dispo: Pending improvement
[2021-03-23] MEDS ORDERED: Iopamidol 755 MG/ML 500 ML Multipack Bottle IVPUSH STA (15:03)
--- NOTE | 2021-03-23 15:19 | CT ---
INDICATION: COVID, shortness of breath COMPARISON: 03/15/2021 TECHNIQUE: CT volumetric acquisition was performed of the thorax during intravenous infusion of 100 cc Isovue 370 nonionic intravenous contrast. Please note that all CT scans at this facility use dose modulation, iterative reconstruction, and/or weight-based dosing when appropriate to reduce radiation dose to as low as reasonably achievable. FINDINGS: There is no pulmonary embolism in the main, lobar or segmental pulmonary arteries. Mediastinal and bilateral hilar adenopathy noted measuring up to 1.6 cm. Extensive bilateral ground-glass opacities are present throughout the lungs, increased compared to the prior exam. Few patchy areas of normal lung remain. No pneumothorax or pleural effusion. No intrinsic osseous lesion or fracture. Upper abdomen appears normal. IMPRESSION: No evidence of pulmonary thromboembolism. Extensive bilateral COVID infiltrates, progressed compared with prior study. Please note that all CT scans at this facility use dose modulation, iterative reconstruction, and/or weight-based dosing when appropriate to reduce radiation dose to as low as reasonably achievable. Dictated by Roc Bain MD @ 03/23/2021 3:17:14 PM (Electronically Signed)
[2021-03-23] MEDS: Codeine/Promethazine 10-6.25 MG/5 ML Syrup 5 ML UD Syringe PO SCH ×2 (15:49→20:56)
[2021-03-23] MEDS: Docusate Sodium 100 MG Cap PO PRN (18:22)
--- NOTE | 2021-03-23 18:46 | PN ---
[facility] Physician - Brief Progress [id number]/04/2021 18:43[facility] Deion johns, [place] - [facility] ([facility]) - [facility] MICK GASPAR, COVID+Date of Service 03/23/2021 18:43HPI/Ev ents of Note eICU Brief Progress [id number] admitted for hypoxemic respiratory failure attributed to COV ID.Camera exam: Patient sitting in chair on HFNC, eating dinner. Saturations in mid-80seICU Recommend ations:No new recommendations at this timeShould patient be unable to maintain PaO2 >55mmHg or satura tions >88-92% despite non-invasive oxygenation therapies (HFNC or NIV), or have high/unsustainable wo rk of breathing recommend intubation for hypoxemiaContinue COVID specific therapies, including cortic osteroids and baracitinibeICU will continue to followInterventions Major-Respiratory failure - evalua tion and management
[2021-03-23] MEDS: Benzonatate 100 MG Cap PO PRN (20:56)
[2021-03-24] MEDS: Codeine/Promethazine 10-6.25 MG/5 ML Syrup 5 ML UD Syringe PO SCH ×6 (00:05→19:55)
[2021-03-24] MEDS: Albuterol/Ipratropium 3.0-0.5 MG/3 ML Neb Soln NEB SCH ×7 (01:36→22:00)
[2021-03-24] MEDS: Codeine/guaiFENesin 10-100 MG/5 ML Syrup 5 ML Cup PO PRN ×3 (03:31→22:23)
[2021-03-24 07:55] LABS: BLOOD UREA NITROGEN,BUN 18 mg/dL (7.0-18.0); CARBON DIOXIDE,CO2 29.4 mmol/L (21.0-32.0); CHLORIDE,CL 98 mmol/L (98-107); GLUCOSE RANDOM 88 mg/dL (74-106); SODIUM,NA 137 mmol/L (136-145)
[2021-03-24] MEDS: Dexamethasone 10 MG/ML SDV IVPUSH SCH (09:05)
[2021-03-24] MEDS: Enoxaparin 40 MG/0.4 ML Syringe SUBCUT SCH ×2 (09:06→20:01)
--- NOTE | 2021-03-24 15:54 | PCM.PN ---
- General Info Date of Service: 03/24/21 - Review of Systems Systems Review Comment:: reports shortness of breath and cough - Patient Data Vitals - Most Recent: Last Vital Signs Temp 36.1 C 03/24/21 07:00 Pulse 125 H 03/21/21 03:46 Resp 19 03/24/21 14:00 BP 115/64 03/24/21 14:00 Pulse Ox 90 L 03/24/21 14:00 Weight - Most Recent: 144.321 kg I&O - Last 24 Hours: Intake & Output 03/24/21 03/24/21 03/24/21 06:59 14:59 22:59 Intake Total 400 Balance 400 Lab Results Last 24 Hours: Laboratory Results - last 24 hr 03/24/21 03/24/21 Range/Units 06:16 06:16 WBC 14.21 H (4.0-11.0) K/uL RBC 4.75 (4.30-5.90) M/uL Hgb 13.8 (12.0-16.0) g/dL Hct 41.5 (36.0-46.0) % MCV 87.4 (80.0-98.0) fL MCH 29.1 (27.0-32.0) pg MCHC 33.3 (31.0-37.0) g/dL RDW Std Deviation 45.1 (28.0-62.0) fl RDW Coeff of Sandeep 14 (11.0-15.0) % Plt Count 314 (150-400) K/uL MPV 10.00 (7.40-12.00) fL Neut % (Auto) 81.6 H (48.0-80.0) % Lymph % (Auto) 12.9 L (16.0-40.0) % [place] % (Auto) 3.4 (0.0-15.0) % Eos % (Auto) 2.0 (0.0-7.0) % Baso % (Auto) 0.1 (0.0-1.5) % Neut # (Auto) 11.6 H (1.4-5.7) K/uL Lymph # (Auto) 1.8 (0.6-2.4) K/uL [place] # (Auto) 0.5 (0.0-0.8) K/uL Eos # (Auto) 0.3 (0.0-0.7) K/uL Baso # (Auto) 0.0 (0.0-0.1) K/uL Nucleated RBC % 0.0 /100WBC Nucleated RBCs # 0 K/uL Sodium 137 (136-145) mmol/L Potassium 5.0 (3.5-5.1) mmol/L Chloride 98 (98-107) mmol/L Carbon Dioxide 29.4 (21.0-32.0) mmol/L BUN 18 (7.0-18.0) mg/dL Creatinine 0.7 (0.6-1.0) mg/dL Est Cr Clr Drug Dosing 77.39 mL/min Estimated GFR (MDRD) > 60.0 ml/min Glucose 88 (74-106) mg/dL Calcium 8.6 (8.5-10.1) mg/dL Phosphorus 4.7 (2.6-4.7) mg/dL Magnesium 2.2 (1.8-2.4) mg/dL Total Bilirubin 0.7 (0.2-1.0) mg/dL AST 40 H (15-37) IU/L ALT 44 (14-63) IU/L Alkaline Phosphatase 96 (46-116) U/L Total Protein 7.0 (6.4-8.2) g/dL Albumin 2.7 L (3.4-5.0) g/dL Globulin 4.3 H (2.6-4.0) g/dL Albumin/Globulin Ratio 0.6 L (0.9-1.6) Med Orders - Current: Current Medications Acetaminophen (Acetaminophen 325 Mg Tab) 650 mg PO Q4H PRN PRN Reason: Pain (Mild 1-3)/fever Last Admin: 03/21/21 03:48 Dose: 650 mg Documented by: Albuterol/Ipratropium (Albuterol/Ipratropium 3.0-0.5 Mg/3 Ml Neb Soln) 3 ml NEB Q4HRRT [place] Last Admin: 03/24/21 13:29 Dose: 3 ml Documented by: Benzonatate (Benzonatate 100 Mg Cap) 100 mg PO Q4H PRN PRN Reason: cough Last Admin: 03/23/21 20:56 Dose: 100 mg Documented by: Dexamethasone (Dexamethasone 10 Mg/Ml Sdv) 10 mg IVPUSH DAILY [facility] Last Admin: 03/24/21 09:05 Dose: 10 mg Documented by: Docusate Sodium (Docusate Sodium 100 Mg Cap) 100 mg PO BID PRN PRN Reason: Constipation Last Admin: 03/23/21 18:22 Dose: 100 mg Documented by: Enoxaparin Sodium (Enoxaparin 40 Mg/0.4 Ml Syringe) 40 mg SUBCUT Q12HR [facility] Last Admin: 03/24/21 09:06 Dose: 40 mg Documented by: Guaifenesin/Codeine Phosphate (Codeine/Guaifenesin 10-100 Mg/5 Ml Syrup 5 Ml Cup) 10 ml PO Q4H PRN PRN Reason: Cough Last Admin: 03/24/21 03:31 Dose: 10 ml Documented by: Ondansetron HCl (Ondansetron 4 Mg/2 Ml Sdv) 4 mg IVPUSH Q4H PRN PRN Reason: Nausea Last Admin: 03/18/21 01:17 Dose: 4 mg Documented by: Promethazine HCl/Codeine (Codeine/Promethazine 10-6.25 Mg/5 Ml Syrup 5 Ml Ud Syringe) 5 ml PO Q4HR [facility] Last Admin: 03/24/21 12:08 Dose: Not Given Documented by: Sodium Chloride (Sodium Chloride 0.9% 2.5 Ml Syringe) 2.5 ml FLUSH ASDIRECTED PRN PRN Reason: Keep Vein Open Discontinued Medications Albuterol/Ipratropium (Albuterol/Ipratropium 4 Gm Inhalation [place]) 0 gm INH Q4HRRT [facility] Last Admin: 03/19/21 05:59 Dose: Not Given Documented by: Albuterol/Ipratropium (Albuterol/Ipratropium 3.0-0.5 Mg/3 Ml Neb Soln) 3 ml NEB Q4H PRN PRN Reason: Shortness of Breath Last Admin: 03/19/21 05:56 Dose: 3 ml Documented by: Albuterol/Ipratropium (Albuterol/Ipratropium 3.0-0.5 Mg/3 Ml Neb Soln) 3 ml NEB Q4HRRT PRN PRN Reason: SHORTNESS OF BREATH Dexamethasone (Dexamethasone 10 Mg/Ml Sdv) 10 mg IVPUSH ONETIME ONE Stop: 03/15/21 11:11 Last Admin: 03/15/21 11:35 Dose: 10 mg Documented by: Dexamethasone (Dexamethasone 4 Mg Tab) 6 mg PO DAILY@1400 [place] Last Admin: 03/18/21 14:17 Dose: 6 mg Documented by: Furosemide (Furosemide 20 Mg/2 Ml Vial) 20 mg IVPUSH NOW ONE Stop: 03/18/21 19:08 Last Admin: 03/18/21 19:47 Dose: 20 mg Documented by: Furosemide (Furosemide 40 Mg/4 Ml Vial) 40 mg IVPUSH NOW ONE Stop: 03/19/21 06:33 Last Admin: 03/19/21 07:24 Dose: 40 mg Documented by: Guaifenesin/Codeine Phosphate (Codeine/Guaifenesin 10-100 Mg/5 Ml Syrup 5 Ml Cup) 5 ml PO Q6H PRN PRN Reason: Cough Stop: 03/19/21 04:20 Last Admin: 03/17/21 08:52 Dose: 5 ml Documented by: Remdesivir 200 mg/ Sodium (Chloride) 250 mls @ 250 mls/hr IV ONETIME ONE Stop: 03/15/21 13:59 Last Admin: 03/15/21 14:28 Dose: 250 mls/hr Documented by: Remdesivir 100 mg/ Sodium (Chloride) 100 mls @ 100 mls/hr IV Q24H [place] Stop: 03/19/21 14:59 Last Admin: 03/19/21 13:10 Dose: 100 mls/hr Documented by: Iopamidol (Iopamidol 755 Mg/Ml 500 Ml Multipack Bottle) 100 ml IVPUSH ONETIME ONE Stop: 03/15/21 13:29 Last Admin: 03/15/21 13:30 Dose: 100 ml Documented by: Iopamidol (Iopamidol 755 Mg/Ml 500 Ml Multipack Bottle) 100 ml IVPUSH ONETIME [facility]A Stop: 03/23/21 15:04 Last Admin: 03/23/21 15:04 Dose: 100 ml Documented by: Lorazepam (Lorazepam 2 Mg/Ml Sdv) 1 mg IVPUSH ONETIME ONE Stop: 03/18/21 23:26 Last Admin: 03/19/21 00:14 Dose: 1 mg Documented by: Morphine Sulfate (Morphine 2 Mg/Ml Syringe) 2 mg IVPUSH ONETIME ONE Stop: 03/19/21 06:33 Last Admin: 03/19/21 07:26 Dose: 2 mg Documented by: - Exam Urinary Catheter Total Time: 2Days 19Hours General: Alert, Oriented Lungs: Normal Respiratory Effort, Rhonchi Cardiovascular: Regular Rate, Regular Rhythm GI/Abdominal Exam: Soft, Non-Tender, No Distention Extremities: Non-Tender, No Pedal Edema Skin: Warm, Dry, Intact Neurological: No New Focal Deficit - Patient Data Lab Results Last 24 hrs: Laboratory Results - last 24 hr 03/24/21 03/24/21 Range/Units 06:16 06:16 WBC 14.21 H (4.0-11.0) K/uL RBC 4.75 (4.30-5.90) M/uL Hgb 13.8 (12.0-16.0) g/dL Hct 41.5 (36.0-46.0) % MCV 87.4 (80.0-98.0) fL MCH 29.1 (27.0-32.0) pg MCHC 33.3 (31.0-37.0) g/dL RDW Std Deviation 45.1 (28.0-62.0) fl RDW Coeff of Sandeep 14 (11.0-15.0) % Plt Count 314 (150-400) K/uL MPV 10.00 (7.40-12.00) fL Neut % (Auto) 81.6 H (48.0-80.0) % Lymph % (Auto) 12.9 L (16.0-40.0) % [place] % (Auto) 3.4 (0.0-15.0) % Eos % (Auto) 2.0 (0.0-7.0) % Baso % (Auto) 0.1 (0.0-1.5) % Neut # (Auto) 11.6 H (1.4-5.7) K/uL Lymph # (Auto) 1.8 (0.6-2.4) K/uL [place] # (Auto) 0.5 (0.0-0.8) K/uL Eos # (Auto) 0.3 (0.0-0.7) K/uL Baso # (Auto) 0.0 (0.0-0.1) K/uL Nucleated RBC % 0.0 /100WBC Nucleated RBCs # 0 K/uL Sodium 137 (136-145) mmol/L Potassium 5.0 (3.5-5.1) mmol/L Chloride 98 (98-107) mmol/L Carbon Dioxide 29.4 (21.0-32.0) mmol/L BUN 18 (7.0-18.0) mg/dL Creatinine 0.7 (0.6-1.0) mg/dL Est Cr Clr Drug Dosing 77.39 mL/min Estimated GFR (MDRD) > 60.0 ml/min Glucose 88 (74-106) mg/dL Calcium 8.6 (8.5-10.1) mg/dL Phosphorus 4.7 (2.6-4.7) mg/dL Magnesium 2.2 (1.8-2.4) mg/dL Total Bilirubin 0.7 (0.2-1.0) mg/dL AST 40 H (15-37) IU/L ALT 44 (14-63) IU/L Alkaline Phosphatase 96 (46-116) U/L Total Protein 7.0 (6.4-8.2) g/dL Albumin 2.7 L (3.4-5.0) g/dL Globulin 4.3 H (2.6-4.0) g/dL Albumin/Globulin Ratio 0.6 L (0.9-1.6) Result Diagrams: 03/24/21 06:16 03/24/21 06:16 Sepsis Event Note - Evaluation Sepsis Screening Result: Severe Sepsis Risk - Focused Exam Vital Signs: Vital Signs Temp Resp BP Pulse Ox 03/24/21 14:00 19 115/64 90 L 03/24/21 13:00 23 H 113/73 93 L 03/24/21 12:00 22 H 109/67 90 L 03/24/21 11:00 21 H 102/61 89 L 03/24/21 10:00 25 H 110/68 91 L 03/24/21 09:00 26 H 109/61 90 L 03/24/21 08:00 31 H 144/79 H 90 L 03/24/21 07:00 36.1 C 32 H 122/54 L 95 03/24/21 06:00 28 H 113/63 94 L 03/24/21 05:00 21 H 130/66 97 03/24/21 04:00 35.9 C L 29 H 114/52 L 92 L - Problem List Review Problem List Initiated/Reviewed/Updated: Yes - My Orders Last 24 Hours: My Active Orders 03/25/21 05:11 CBC WITH AUTO DIFF [HEME] AM COMPREHENSIVE METABOLIC PN,CMP [CHEM] AM MAGNESIUM [CHEM] AM PHOSPHORUS [CHEM] AM 03/26/21 05:11 CBC WITH AUTO DIFF [HEME] AM COMPREHENSIVE METABOLIC PN,CMP [CHEM] AM MAGNESIUM [CHEM] AM PHOSPHORUS [CHEM] AM 03/27/21 05:11 CBC WITH AUTO DIFF [HEME] AM COMPREHENSIVE METABOLIC PN,CMP [CHEM] AM MAGNESIUM [CHEM] AM PHOSPHORUS [CHEM] AM 03/28/21 05:11 CBC WITH AUTO DIFF [HEME] AM COMPREHENSIVE METABOLIC PN,CMP [CHEM] AM MAGNESIUM [CHEM] AM PHOSPHORUS [CHEM] AM - Plan Plan:: This 45-year-old female admitted with acute hypoxic respiratory failure, COVID- 19, and viral pneumonia 1. Acute hypoxic respiratory failure/COVID-19/viral pneumonia -Oxygen via high flow or cpap to keep sats greater than 92% wean as possible -Continue scheduled DuoNebs -Dexamethasone 10 mg IV daily o -completed Remdesivir -Encourage I-S use along with self proning -Continue Lovenox -cont Baricitinib 4 mg po daily -Monitor LFTs with Baricitinib therapies -Tessalon Perles as needed cough -We will use promethazine with codeine for better cough control -Supportive care as needed VTE prophylaxis: Lovenox twice daily due to elevated BMI GI prophylaxis: Protonix CODE STATUS: Full code Dispo: Pending improvement
[2021-03-24] MEDS: Benzonatate 100 MG Cap PO PRN (20:01)
[2021-03-25] MEDS: Codeine/Promethazine 10-6.25 MG/5 ML Syrup 5 ML UD Syringe PO SCH ×6 (00:15→21:00)
[2021-03-25] MEDS: Albuterol/Ipratropium 3.0-0.5 MG/3 ML Neb Soln NEB SCH ×6 (01:03→21:27)
[2021-03-25 06:56] LABS: BLOOD UREA NITROGEN,BUN 15 mg/dL (7.0-18.0); CARBON DIOXIDE,CO2 28.7 mmol/L (21.0-32.0); CHLORIDE,CL 99 mmol/L (98-107); GLUCOSE RANDOM 106 mg/dL (74-106); POTASSIUM,K 4.2 mmol/L (3.5-5.1); SODIUM,NA 135 mmol/L (136-145)
--- NOTE | 2021-03-25 08:08 | PCM.PN ---
- General Info Date of Service: 03/25/21 - Review of Systems Systems Review Comment:: feeling better, slept well, reports shortness of breath and cough - Patient Data Vitals - Most Recent: Last Vital Signs Temp 35.7 C L 03/24/21 20:00 Pulse 125 H 03/21/21 03:46 Resp 32 H 03/25/21 07:00 BP 121/60 03/25/21 05:00 Pulse Ox 90 L 03/25/21 07:00 Weight - Most Recent: 144.321 kg I&O - Last 24 Hours: Intake & Output 03/24/21 03/25/21 03/25/21 22:59 06:59 14:59 Intake Total 1200 500 Output Total 950 Balance 250 500 Lab Results Last 24 Hours: Laboratory Results - last 24 hr 03/25/21 03/25/21 Range/Units 05:14 05:14 WBC 11.70 H (4.0-11.0) K/uL RBC 4.24 L (4.30-5.90) M/uL Hgb 12.0 (12.0-16.0) g/dL Hct 36.9 (36.0-46.0) % MCV 87.0 (80.0-98.0) fL MCH 28.3 (27.0-32.0) pg MCHC 32.5 (31.0-37.0) g/dL RDW Std Deviation 44.5 (28.0-62.0) fl RDW Coeff of Sandeep 14 (11.0-15.0) % Plt Count 362 (150-400) K/uL MPV 9.70 (7.40-12.00) fL Neut % (Auto) 77.6 (48.0-80.0) % Lymph % (Auto) 16.8 (16.0-40.0) % [place] % (Auto) 4.0 (0.0-15.0) % Eos % (Auto) 1.5 (0.0-7.0) % Baso % (Auto) 0.1 (0.0-1.5) % Neut # (Auto) 9.1 H (1.4-5.7) K/uL Lymph # (Auto) 2.0 (0.6-2.4) K/uL [place] # (Auto) 0.5 (0.0-0.8) K/uL Eos # (Auto) 0.2 (0.0-0.7) K/uL Baso # (Auto) 0.0 (0.0-0.1) K/uL Nucleated RBC % 0.0 /100WBC Nucleated RBCs # 0 K/uL Sodium 135 L (136-145) mmol/L Potassium 4.2 (3.5-5.1) mmol/L Chloride 99 (98-107) mmol/L Carbon Dioxide 28.7 (21.0-32.0) mmol/L BUN 15 (7.0-18.0) mg/dL Creatinine 0.7 (0.6-1.0) mg/dL Est Cr Clr Drug Dosing 77.39 mL/min Estimated GFR (MDRD) > 60.0 ml/min Glucose 106 (74-106) mg/dL Calcium 8.2 L (8.5-10.1) mg/dL Phosphorus 4.5 (2.6-4.7) mg/dL Magnesium 2.0 (1.8-2.4) mg/dL Total Bilirubin 0.5 (0.2-1.0) mg/dL AST 36 (15-37) IU/L ALT 38 (14-63) IU/L Alkaline Phosphatase 83 (46-116) U/L Total Protein 6.8 (6.4-8.2) g/dL Albumin 2.3 L (3.4-5.0) g/dL Globulin 4.5 H (2.6-4.0) g/dL Albumin/Globulin Ratio 0.5 L (0.9-1.6) Med Orders - Current: Current Medications Acetaminophen (Acetaminophen 325 Mg Tab) 650 mg PO Q4H PRN PRN Reason: Pain (Mild 1-3)/fever Last Admin: 03/21/21 03:48 Dose: 650 mg Documented by: Albuterol/Ipratropium (Albuterol/Ipratropium 3.0-0.5 Mg/3 Ml Neb Soln) 3 ml NEB Q4HRRT [place] Last Admin: 03/25/21 05:41 Dose: 3 ml Documented by: Benzonatate (Benzonatate 100 Mg Cap) 100 mg PO Q4H PRN PRN Reason: cough Last Admin: 03/24/21 20:01 Dose: 100 mg Documented by: Dexamethasone (Dexamethasone 10 Mg/Ml Sdv) 10 mg IVPUSH DAILY [facility] Last Admin: 03/24/21 09:05 Dose: 10 mg Documented by: Docusate Sodium (Docusate Sodium 100 Mg Cap) 100 mg PO BID PRN PRN Reason: Constipation Last Admin: 03/23/21 18:22 Dose: 100 mg Documented by: Enoxaparin Sodium (Enoxaparin 40 Mg/0.4 Ml Syringe) 40 mg SUBCUT Q12HR [facility] Last Admin: 03/24/21 20:01 Dose: 40 mg Documented by: Guaifenesin/Codeine Phosphate (Codeine/Guaifenesin 10-100 Mg/5 Ml Syrup 5 Ml Cup) 10 ml PO Q4H PRN PRN Reason: Cough Last Admin: 03/24/21 22:23 Dose: 10 ml Documented by: Ondansetron HCl (Ondansetron 4 Mg/2 Ml Sdv) 4 mg IVPUSH Q4H PRN PRN Reason: Nausea Last Admin: 03/18/21 01:17 Dose: 4 mg Documented by: Promethazine HCl/Codeine (Codeine/Promethazine 10-6.25 Mg/5 Ml Syrup 5 Ml Ud Syringe) 5 ml PO Q4HR [facility] Last Admin: 03/25/21 04:16 Dose: Not Given Documented by: Sodium Chloride (Sodium Chloride 0.9% 2.5 Ml Syringe) 2.5 ml FLUSH ASDIRECTED PRN PRN Reason: Keep Vein Open Discontinued Medications Albuterol/Ipratropium (Albuterol/Ipratropium 4 Gm Inhalation [place]) 0 gm INH Q4HRRT [facility] Last Admin: 03/19/21 05:59 Dose: Not Given Documented by: Albuterol/Ipratropium (Albuterol/Ipratropium 3.0-0.5 Mg/3 Ml Neb Soln) 3 ml NEB Q4H PRN PRN Reason: Shortness of Breath Last Admin: 03/19/21 05:56 Dose: 3 ml Documented by: Albuterol/Ipratropium (Albuterol/Ipratropium 3.0-0.5 Mg/3 Ml Neb Soln) 3 ml NEB Q4HRRT PRN PRN Reason: SHORTNESS OF BREATH Dexamethasone (Dexamethasone 10 Mg/Ml Sdv) 10 mg IVPUSH ONETIME ONE Stop: 03/15/21 11:11 Last Admin: 03/15/21 11:35 Dose: 10 mg Documented by: Dexamethasone (Dexamethasone 4 Mg Tab) 6 mg PO DAILY@1400 [place] Last Admin: 03/18/21 14:17 Dose: 6 mg Documented by: Furosemide (Furosemide 20 Mg/2 Ml Vial) 20 mg IVPUSH NOW ONE Stop: 03/18/21 19:08 Last Admin: 03/18/21 19:47 Dose: 20 mg Documented by: Furosemide (Furosemide 40 Mg/4 Ml Vial) 40 mg IVPUSH NOW ONE Stop: 03/19/21 06:33 Last Admin: 03/19/21 07:24 Dose: 40 mg Documented by: Guaifenesin/Codeine Phosphate (Codeine/Guaifenesin 10-100 Mg/5 Ml Syrup 5 Ml Cup) 5 ml PO Q6H PRN PRN Reason: Cough Stop: 03/19/21 04:20 Last Admin: 03/17/21 08:52 Dose: 5 ml Documented by: Remdesivir 200 mg/ Sodium (Chloride) 250 mls @ 250 mls/hr IV ONETIME ONE Stop: 03/15/21 13:59 Last Admin: 03/15/21 14:28 Dose: 250 mls/hr Documented by: Remdesivir 100 mg/ Sodium (Chloride) 100 mls @ 100 mls/hr IV Q24H [place] Stop: 03/19/21 14:59 Last Admin: 03/19/21 13:10 Dose: 100 mls/hr Documented by: Iopamidol (Iopamidol 755 Mg/Ml 500 Ml Multipack Bottle) 100 ml IVPUSH ONETIME ONE Stop: 03/15/21 13:29 Last Admin: 03/15/21 13:30 Dose: 100 ml Documented by: Iopamidol (Iopamidol 755 Mg/Ml 500 Ml Multipack Bottle) 100 ml IVPUSH ONETIME [facility] Stop: 03/23/21 15:04 Last Admin: 03/23/21 15:04 Dose: 100 ml Documented by: Lorazepam (Lorazepam 2 Mg/Ml Sdv) 1 mg IVPUSH ONETIME ONE Stop: 03/18/21 23:26 Last Admin: 03/19/21 00:14 Dose: 1 mg Documented by: Morphine Sulfate (Morphine 2 Mg/Ml Syringe) 2 mg IVPUSH ONETIME ONE Stop: 03/19/21 06:33 Last Admin: 03/19/21 07:26 Dose: 2 mg Documented by: - Exam Urinary Catheter Total Time: 2Days 19Hours General: Alert, Oriented Neck: Supple Lungs: Normal Respiratory Effort, Rhonchi Cardiovascular: Regular Rate, Regular Rhythm GI/Abdominal Exam: Soft, Non-Tender, No Distention Extremities: Non-Tender, No Pedal Edema Skin: Warm, Dry, Intact Neurological: No New Focal Deficit - Patient Data Lab Results Last 24 hrs: Laboratory Results - last 24 hr 03/25/21 03/25/21 Range/Units 05:14 05:14 WBC 11.70 H (4.0-11.0) K/uL RBC 4.24 L (4.30-5.90) M/uL Hgb 12.0 (12.0-16.0) g/dL Hct 36.9 (36.0-46.0) % MCV 87.0 (80.0-98.0) fL MCH 28.3 (27.0-32.0) pg MCHC 32.5 (31.0-37.0) g/dL RDW Std Deviation 44.5 (28.0-62.0) fl RDW Coeff of Sandeep 14 (11.0-15.0) % Plt Count 362 (150-400) K/uL MPV 9.70 (7.40-12.00) fL Neut % (Auto) 77.6 (48.0-80.0) % Lymph % (Auto) 16.8 (16.0-40.0) % [place] % (Auto) 4.0 (0.0-15.0) % Eos % (Auto) 1.5 (0.0-7.0) % Baso % (Auto) 0.1 (0.0-1.5) % Neut # (Auto) 9.1 H (1.4-5.7) K/uL Lymph # (Auto) 2.0 (0.6-2.4) K/uL [place] # (Auto) 0.5 (0.0-0.8) K/uL Eos # (Auto) 0.2 (0.0-0.7) K/uL Baso # (Auto) 0.0 (0.0-0.1) K/uL Nucleated RBC % 0.0 /100WBC Nucleated RBCs # 0 K/uL Sodium 135 L (136-145) mmol/L Potassium 4.2 (3.5-5.1) mmol/L Chloride 99 (98-107) mmol/L Carbon Dioxide 28.7 (21.0-32.0) mmol/L BUN 15 (7.0-18.0) mg/dL Creatinine 0.7 (0.6-1.0) mg/dL Est Cr Clr Drug Dosing 77.39 mL/min Estimated GFR (MDRD) > 60.0 ml/min Glucose 106 (74-106) mg/dL Calcium 8.2 L (8.5-10.1) mg/dL Phosphorus 4.5 (2.6-4.7) mg/dL Magnesium 2.0 (1.8-2.4) mg/dL Total Bilirubin 0.5 (0.2-1.0) mg/dL AST 36 (15-37) IU/L ALT 38 (14-63) IU/L Alkaline Phosphatase 83 (46-116) U/L Total Protein 6.8 (6.4-8.2) g/dL Albumin 2.3 L (3.4-5.0) g/dL Globulin 4.5 H (2.6-4.0) g/dL Albumin/Globulin Ratio 0.5 L (0.9-1.6) Result Diagrams: 03/25/21 05:14 03/25/21 05:14 Sepsis Event Note - Evaluation Sepsis Screening Result: Severe Sepsis Risk - Focused Exam Vital Signs: Vital Signs Resp BP Pulse Ox 03/25/21 07:00 32 H 90 L 03/25/21 06:00 29 H 91 L 03/25/21 05:00 35 H 121/60 90 L 03/25/21 04:00 31 H 122/66 89 L 03/25/21 03:00 30 H 128/68 92 L 03/25/21 02:00 30 H 100/60 90 L 03/25/21 01:00 34 H 94 L 03/25/21 00:00 23 H 154/95 H 94 L 03/24/21 23:00 36 H 149/99 H 95 03/24/21 22:00 33 H 131/74 90 L 03/24/21 21:00 17 136/68 94 L - Problem List Review Problem List Initiated/Reviewed/Updated: Yes - My Orders Last 24 Hours: My Active Orders 03/26/21 05:11 CBC WITH AUTO DIFF [HEME] AM COMPREHENSIVE METABOLIC PN,CMP [CHEM] AM MAGNESIUM [CHEM] AM PHOSPHORUS [CHEM] AM 03/27/21 05:11 CBC WITH AUTO DIFF [HEME] AM COMPREHENSIVE METABOLIC PN,CMP [CHEM] AM MAGNESIUM [CHEM] AM PHOSPHORUS [CHEM] AM 03/28/21 05:11 CBC WITH AUTO DIFF [HEME] AM COMPREHENSIVE METABOLIC PN,CMP [CHEM] AM MAGNESIUM [CHEM] AM PHOSPHORUS [CHEM] AM - Plan Plan:: This 45-year-old female admitted with acute hypoxic respiratory failure, COVID- 19, and viral pneumonia 1. Acute hypoxic respiratory failure/COVID-19/viral pneumonia -Oxygen via high flow or cpap to keep sats greater than 92% wean as possible -Continue scheduled DuoNebs -Dexamethasone 10 mg IV daily o -completed Remdesivir -Encourage I-S use along with self proning -Continue Lovenox -cont Baricitinib 4 mg po daily -Monitor LFTs with Baricitinib therapies -Tessalon Perles as needed cough VTE prophylaxis: Lovenox twice daily due to elevated BMI GI prophylaxis: Protonix CODE STATUS: Full code Dispo: Pending improvement
[2021-03-25] MEDS: Codeine/guaiFENesin 10-100 MG/5 ML Syrup 5 ML Cup PO PRN (08:47)
[2021-03-25] MEDS: Dexamethasone 10 MG/ML SDV IVPUSH SCH (08:47)
[2021-03-25] MEDS: Benzonatate 100 MG Cap PO PRN (08:48)
[2021-03-25] MEDS: Enoxaparin 40 MG/0.4 ML Syringe SUBCUT SCH ×2 (10:16→21:26)
[2021-03-26] MEDS: Codeine/Promethazine 10-6.25 MG/5 ML Syrup 5 ML UD Syringe PO SCH ×7 (00:03→23:53)
[2021-03-26] MEDS: Albuterol/Ipratropium 3.0-0.5 MG/3 ML Neb Soln NEB SCH ×6 (01:12→21:30)
[2021-03-26 07:26] LABS: BLOOD UREA NITROGEN,BUN 16 mg/dL (7.0-18.0); CARBON DIOXIDE,CO2 28.9 mmol/L (21.0-32.0); CHLORIDE,CL 100 mmol/L (98-107); GLUCOSE RANDOM 111 mg/dL (74-106); POTASSIUM,K 4.3 mmol/L (3.5-5.1); SODIUM,NA 134 mmol/L (136-145)
[2021-03-26] MEDS: Enoxaparin 40 MG/0.4 ML Syringe SUBCUT SCH ×2 (08:36→20:07)
[2021-03-26] MEDS: Dexamethasone 10 MG/ML SDV IVPUSH SCH (08:36)
--- NOTE | 2021-03-26 16:10 | PCM.PN ---
- General Info Date of Service: 03/26/21 - Review of Systems Systems Review Comment:: feeling better - Patient Data Vitals - Most Recent: Last Vital Signs Temp 36.6 C 03/26/21 15:00 Pulse 125 H 03/21/21 03:46 Resp 24 H 03/26/21 15:00 BP 123/64 03/26/21 15:00 Pulse Ox 90 L 03/26/21 15:00 Weight - Most Recent: 154.2 kg I&O - Last 24 Hours: Intake & Output 03/26/21 03/26/21 03/26/21 06:59 14:59 22:59 Intake Total 800 Output Total 1200 Balance -400 Lab Results Last 24 Hours: Laboratory Results - last 24 hr 03/26/21 03/26/21 Range/Units 06:10 06:10 WBC 12.41 H (4.0-11.0) K/uL RBC 4.09 L (4.30-5.90) M/uL Hgb 11.8 L (12.0-16.0) g/dL Hct 35.4 L (36.0-46.0) % MCV 86.6 (80.0-98.0) fL MCH 28.9 (27.0-32.0) pg MCHC 33.3 (31.0-37.0) g/dL RDW Std Deviation 44.0 (28.0-62.0) fl RDW Coeff of Sandeep 14 (11.0-15.0) % Plt Count 408 H (150-400) K/uL MPV 9.70 (7.40-12.00) fL Neut % (Auto) 84.0 H (48.0-80.0) % Lymph % (Auto) 12.6 L (16.0-40.0) % [place] % (Auto) 3.0 (0.0-15.0) % Eos % (Auto) 0.2 (0.0-7.0) % Baso % (Auto) 0.2 (0.0-1.5) % Neut # (Auto) 10.4 H (1.4-5.7) K/uL Lymph # (Auto) 1.6 (0.6-2.4) K/uL [place] # (Auto) 0.4 (0.0-0.8) K/uL Eos # (Auto) 0.0 (0.0-0.7) K/uL Baso # (Auto) 0.0 (0.0-0.1) K/uL Nucleated RBC % 0.0 /100WBC Nucleated RBCs # 0 K/uL Sodium 134 L (136-145) mmol/L Potassium 4.3 (3.5-5.1) mmol/L Chloride 100 (98-107) mmol/L Carbon Dioxide 28.9 (21.0-32.0) mmol/L BUN 16 (7.0-18.0) mg/dL Creatinine 0.6 (0.6-1.0) mg/dL Est Cr Clr Drug Dosing 90.29 mL/min Estimated GFR (MDRD) > 60.0 ml/min Glucose 111 H (74-106) mg/dL Calcium 8.2 L (8.5-10.1) mg/dL Phosphorus 4.7 (2.6-4.7) mg/dL Magnesium 2.2 (1.8-2.4) mg/dL Total Bilirubin 0.5 (0.2-1.0) mg/dL AST 38 H (15-37) IU/L ALT 37 (14-63) IU/L Alkaline Phosphatase 85 (46-116) U/L Total Protein 6.9 (6.4-8.2) g/dL Albumin 2.3 L (3.4-5.0) g/dL Globulin 4.6 H (2.6-4.0) g/dL Albumin/Globulin Ratio 0.5 L (0.9-1.6) Med Orders - Current: Current Medications Acetaminophen (Acetaminophen 325 Mg Tab) 650 mg PO Q4H PRN PRN Reason: Pain (Mild 1-3)/fever Last Admin: 03/21/21 03:48 Dose: 650 mg Documented by: Albuterol/Ipratropium (Albuterol/Ipratropium 3.0-0.5 Mg/3 Ml Neb Soln) 3 ml NEB Q4HRRT [facility] Last Admin: 03/26/21 13:16 Dose: 3 ml Documented by: Benzonatate (Benzonatate 100 Mg Cap) 100 mg PO Q4H PRN PRN Reason: cough Last Admin: 03/25/21 08:48 Dose: 100 mg Documented by: Dexamethasone (Dexamethasone 10 Mg/Ml Sdv) 10 mg IVPUSH DAILY [facility] Last Admin: 03/26/21 08:36 Dose: 10 mg Documented by: Docusate Sodium (Docusate Sodium 100 Mg Cap) 100 mg PO BID PRN PRN Reason: Constipation Last Admin: 03/23/21 18:22 Dose: 100 mg Documented by: Enoxaparin Sodium (Enoxaparin 40 Mg/0.4 Ml Syringe) 40 mg SUBCUT Q12HR [facility] Last Admin: 03/26/21 08:36 Dose: 40 mg Documented by: Guaifenesin/Codeine Phosphate (Codeine/Guaifenesin 10-100 Mg/5 Ml Syrup 5 Ml Cup) 10 ml PO Q4H PRN PRN Reason: Cough Last Admin: 03/25/21 08:47 Dose: 10 ml Documented by: Ondansetron HCl (Ondansetron 4 Mg/2 Ml Sdv) 4 mg IVPUSH Q4H PRN PRN Reason: Nausea Last Admin: 03/18/21 01:17 Dose: 4 mg Documented by: Promethazine HCl/Codeine (Codeine/Promethazine 10-6.25 Mg/5 Ml Syrup 5 Ml Ud Syringe) 5 ml PO Q4HR [facility] Last Admin: 03/26/21 15:27 Dose: 5 ml Documented by: Sodium Chloride (Sodium Chloride 0.9% 2.5 Ml Syringe) 2.5 ml FLUSH ASDIRECTED PRN PRN Reason: Keep Vein Open Discontinued Medications Albuterol/Ipratropium (Albuterol/Ipratropium 4 Gm Inhalation [place]) 0 gm INH Q4HRRT [facility] Last Admin: 03/19/21 05:59 Dose: Not Given Documented by: Albuterol/Ipratropium (Albuterol/Ipratropium 3.0-0.5 Mg/3 Ml Neb Soln) 3 ml NEB Q4H PRN PRN Reason: Shortness of Breath Last Admin: 03/19/21 05:56 Dose: 3 ml Documented by: Albuterol/Ipratropium (Albuterol/Ipratropium 3.0-0.5 Mg/3 Ml Neb Soln) 3 ml NEB Q4HRRT PRN PRN Reason: SHORTNESS OF BREATH Dexamethasone (Dexamethasone 10 Mg/Ml Sdv) 10 mg IVPUSH ONETIME ONE Stop: 03/15/21 11:11 Last Admin: 03/15/21 11:35 Dose: 10 mg Documented by: Dexamethasone (Dexamethasone 4 Mg Tab) 6 mg PO DAILY@1400 [facility] Last Admin: 03/18/21 14:17 Dose: 6 mg Documented by: Furosemide (Furosemide 20 Mg/2 Ml Vial) 20 mg IVPUSH NOW ONE Stop: 03/18/21 19:08 Last Admin: 03/18/21 19:47 Dose: 20 mg Documented by: Furosemide (Furosemide 40 Mg/4 Ml Vial) 40 mg IVPUSH NOW ONE Stop: 03/19/21 06:33 Last Admin: 03/19/21 07:24 Dose: 40 mg Documented by: Guaifenesin/Codeine Phosphate (Codeine/Guaifenesin 10-100 Mg/5 Ml Syrup 5 Ml Cup) 5 ml PO Q6H PRN PRN Reason: Cough Stop: 03/19/21 04:20 Last Admin: 03/17/21 08:52 Dose: 5 ml Documented by: Remdesivir 200 mg/ Sodium (Chloride) 250 mls @ 250 mls/hr IV ONETIME ONE Stop: 03/15/21 13:59 Last Admin: 03/15/21 14:28 Dose: 250 mls/hr Documented by: Remdesivir 100 mg/ Sodium (Chloride) 100 mls @ 100 mls/hr IV Q24H [facility] Stop: 03/19/21 14:59 Last Admin: 03/19/21 13:10 Dose: 100 mls/hr Documented by: Iopamidol (Iopamidol 755 Mg/Ml 500 Ml Multipack Bottle) 100 ml IVPUSH ONETIME ONE Stop: 03/15/21 13:29 Last Admin: 03/15/21 13:30 Dose: 100 ml Documented by: Iopamidol (Iopamidol 755 Mg/Ml 500 Ml Multipack Bottle) 100 ml IVPUSH ONETIME [facility]A Stop: 03/23/21 15:04 Last Admin: 03/23/21 15:04 Dose: 100 ml Documented by: Lorazepam (Lorazepam 2 Mg/Ml Sdv) 1 mg IVPUSH ONETIME ONE Stop: 03/18/21 23:26 Last Admin: 03/19/21 00:14 Dose: 1 mg Documented by: Morphine Sulfate (Morphine 2 Mg/Ml Syringe) 2 mg IVPUSH ONETIME ONE Stop: 03/19/21 06:33 Last Admin: 03/19/21 07:26 Dose: 2 mg Documented by: - Exam Urinary Catheter Total Time: 2Days 19Hours General: Alert, Oriented Lungs: Normal Respiratory Effort, Rhonchi GI/Abdominal Exam: Normal Bowel Sounds, Soft, Non-Tender Extremities: Non-Tender, No Pedal Edema - Patient Data Lab Results Last 24 hrs: Laboratory Results - last 24 hr 03/26/21 03/26/21 Range/Units 06:10 06:10 WBC 12.41 H (4.0-11.0) K/uL RBC 4.09 L (4.30-5.90) M/uL Hgb 11.8 L (12.0-16.0) g/dL Hct 35.4 L (36.0-46.0) % MCV 86.6 (80.0-98.0) fL MCH 28.9 (27.0-32.0) pg MCHC 33.3 (31.0-37.0) g/dL RDW Std Deviation 44.0 (28.0-62.0) fl RDW Coeff of Sandeep 14 (11.0-15.0) % Plt Count 408 H (150-400) K/uL MPV 9.70 (7.40-12.00) fL Neut % (Auto) 84.0 H (48.0-80.0) % Lymph % (Auto) 12.6 L (16.0-40.0) % [place] % (Auto) 3.0 (0.0-15.0) % Eos % (Auto) 0.2 (0.0-7.0) % Baso % (Auto) 0.2 (0.0-1.5) % Neut # (Auto) 10.4 H (1.4-5.7) K/uL Lymph # (Auto) 1.6 (0.6-2.4) K/uL [place] # (Auto) 0.4 (0.0-0.8) K/uL Eos # (Auto) 0.0 (0.0-0.7) K/uL Baso # (Auto) 0.0 (0.0-0.1) K/uL Nucleated RBC % 0.0 /100WBC Nucleated RBCs # 0 K/uL Sodium 134 L (136-145) mmol/L Potassium 4.3 (3.5-5.1) mmol/L Chloride 100 (98-107) mmol/L Carbon Dioxide 28.9 (21.0-32.0) mmol/L BUN 16 (7.0-18.0) mg/dL Creatinine 0.6 (0.6-1.0) mg/dL Est Cr Clr Drug Dosing 90.29 mL/min Estimated GFR (MDRD) > 60.0 ml/min Glucose 111 H (74-106) mg/dL Calcium 8.2 L (8.5-10.1) mg/dL Phosphorus 4.7 (2.6-4.7) mg/dL Magnesium 2.2 (1.8-2.4) mg/dL Total Bilirubin 0.5 (0.2-1.0) mg/dL AST 38 H (15-37) IU/L ALT 37 (14-63) IU/L Alkaline Phosphatase 85 (46-116) U/L Total Protein 6.9 (6.4-8.2) g/dL Albumin 2.3 L (3.4-5.0) g/dL Globulin 4.6 H (2.6-4.0) g/dL Albumin/Globulin Ratio 0.5 L (0.9-1.6) Result Diagrams: 03/26/21 06:10 03/26/21 06:10 Sepsis Event Note - Evaluation Sepsis Screening Result: Severe Sepsis Risk - Focused Exam Vital Signs: Vital Signs Temp Resp BP Pulse Ox 03/26/21 15:00 36.6 C 24 H 123/64 90 L 03/26/21 14:00 36.6 C 35 H 113/66 92 L 03/26/21 13:00 36.6 C 29 H 110/57 L 89 L 03/26/21 12:24 30 H 84 L 03/26/21 12:00 32 H 125/75 91 L 03/26/21 11:00 36.6 C 32 H 116/65 94 L 03/26/21 10:00 36.6 C 31 H 114/66 84 L 03/26/21 09:00 36.6 C 29 H 111/74 88 L 03/26/21 08:00 36.6 C 24 H 89 L 03/26/21 07:00 26 H 107/53 L 89 L 03/26/21 06:00 30 H 110/51 L 88 L 03/26/21 05:00 33 H 117/61 89 L - Problem List Review Problem List Initiated/Reviewed/Updated: Yes - My Orders Last 24 Hours: My Active Orders 03/27/21 05:11 CBC WITH AUTO DIFF [HEME] AM COMPREHENSIVE METABOLIC PN,CMP [CHEM] AM MAGNESIUM [CHEM] AM PHOSPHORUS [CHEM] AM 03/28/21 05:11 CBC WITH AUTO DIFF [HEME] AM COMPREHENSIVE METABOLIC PN,CMP [CHEM] AM MAGNESIUM [CHEM] AM PHOSPHORUS [CHEM] AM - Plan Plan:: This 45-year-old female admitted with acute hypoxic respiratory failure, COVID- 19, and viral pneumonia 1. Acute hypoxic respiratory failure/COVID-19/viral pneumonia -Oxygen via high flow or cpap to keep sats greater than 92% wean as possible -Continue scheduled DuoNebs -Dexamethasone 10 mg IV daily o -completed Remdesivir -Encourage I-S use along with self proning -Continue Lovenox -cont Baricitinib 4 mg po daily -Monitor LFTs with Baricitinib therapies -Teseduardoon Perles as needed cough VTE prophylaxis: Lovenox twice daily due to elevated BMI GI prophylaxis: Protonix CODE STATUS: Full code Dispo: Pending improvement
[2021-03-27] MEDS: Albuterol/Ipratropium 3.0-0.5 MG/3 ML Neb Soln NEB SCH ×3 (01:23→09:11)
[2021-03-27] MEDS: Codeine/Promethazine 10-6.25 MG/5 ML Syrup 5 ML UD Syringe PO SCH ×2 (05:00→08:56)
[2021-03-27 07:33] LABS: BLOOD UREA NITROGEN,BUN 18 mg/dL (7.0-18.0); CARBON DIOXIDE,CO2 27.6 mmol/L (21.0-32.0); CHLORIDE,CL 98 mmol/L (98-107); GLUCOSE RANDOM 84 mg/dL (74-106); POTASSIUM,K 4.4 mmol/L (3.5-5.1); SODIUM,NA 135 mmol/L (136-145)
[2021-03-27] MEDS ORDERED: LORazepam 2 MG/ML SDV IVPUSH ONE (08:50)
[2021-03-27] MEDS: Codeine/guaiFENesin 10-100 MG/5 ML Syrup 5 ML Cup PO PRN (08:56)
[2021-03-27] MEDS: Benzonatate 100 MG Cap PO PRN (08:56)
[2021-03-27] MEDS: Dexamethasone 10 MG/ML SDV IVPUSH SCH (08:57)
[2021-03-27] MEDS: Enoxaparin 40 MG/0.4 ML Syringe SUBCUT SCH (08:57)
[2021-03-27] MEDS: Acetaminophen 325 MG Tab PO PRN (09:26)
[2021-03-27] MEDS ORDERED: Piperacillin/Tazobactam 3.375 GM in Sodium Chloride 0.9% 50 ML IV SCH (10:00)
[2021-03-27] MEDS ORDERED: fentaNYL/Normal Saline 2,500 MCG in Premix Bag 1 BAG IV SCH (10:00)
[2021-03-27] MEDS ORDERED: propofoL 100 ML IV SCH (10:00)
[2021-03-27] MEDS ORDERED: Azithromycin 500 MG in Sodium Chloride 0.9% 250 ML IV SCH (10:00)
[2021-03-27] MEDS ORDERED: Midazolam 1 MG/ML 2 ML SDV IVPUSH PRN (10:02)
--- NOTE | 2021-03-27 10:15 | CR ---
INDICATION: Pneumonia. COMPARISON: March 21, 2021. TECHNIQUE: One view. FINDINGS : Significant increased opacification of lung parenchyma with obscuration of the pulmonary vessels. No pneumothorax or effusion. Near complete obscuration of cardiomediastinal silhouette. IMPRESSION: Progression of significant diffuse hazy airspace opacities. Findings may be pulmonary edema or diffuse pneumonia/pneumonitis. Dictated by Edvin Gunn MD @ 03/27/2021 10:14:25 AM (Electronically Signed)
--- NOTE | 2021-03-27 11:10 | PCM.PR.ETI ---
Endotracheal Intubation - Endotracheal Intubation Time of Intubation: 10:28 ([id number]) ET Intubation Indication: Respiratory Failure, Other (Covid pneumonia) Preparation: Balloon Tested Airway Assessment: Obese Pre-Oxygenation: Assisted with BVM, 100% FiO2 Anesthesia Meds: Etomidate (26 mg), Rocuronium (50MG), Succinylcholine (100MG) Placement: Orotracheal, Cuffed, Uncomplicated Placement Cords Visualized: Yes, Grade 2 ETT Size In mm: 7.0 Number of Attempts: 1 Confirmed By: CO2 Indicator, Bilateral Breath Sounds Tube Secured By: By RT Endotracheal Intubation Comment: uncomplicated, easy intubation.
[2021-03-27] MEDS ORDERED: Midazolam 1 MG/ML 2 ML SDV IVPUSH STA (11:11)
--- NOTE | 2021-03-27 11:13 | PCM.PR.CLI ---
Central Line Insertion - Central Line Insertion Site: internal jugular (R) Prep: CDC/MBT Guidelines, Sterile Drapes, Chlorhexidine Lumen: triple Gauge: 7Fr Ultrasound guided: No Micropuncture kit used: No CL Complications: No Secured with suture: Yes Dressing applied: by provider (Uncomplicated easy line placement with pt in trendelenburg position.)
[2021-03-27] MEDS ORDERED: Midazolam 50 MG in Sodium Chloride 0.9% 40 ML IV SCH (11:15)
[2021-03-27] MEDS ORDERED: Sodium Bicarbonate 8.4% 50 MEQ/50 ML Syringe ONE (12:00)
[2021-03-27] MEDS ORDERED: Etomidate 2 MG/ML 20 ML SDV IVPUSH ONE (12:00)
[2021-03-27] MEDS ORDERED: Pantoprazole 40 MG in Sodium Chloride 0.9% 10 ML IV SCH (12:00)
[2021-03-27] MEDS ORDERED: Succinylcholine 200 MG/10 ML MDV ONE (12:00)
[2021-03-27] MEDS ORDERED: Rocuronium 100 MG/10 ML MDV ONE (12:00)
[2021-03-27] MEDS ORDERED: EPINEPHrine 1:10,000 1 MG/10 ML Syringe ONE (12:00)
--- NOTE | 2021-03-27 12:04 | CR ---
INDICATION: Assess ETT. TECHNIQUE: One view. COMPARISON: Same date 9:30 a.m. IMPRESSION: Tracheal to roughly 4 cm above the kurt. New right jugular central venous catheter tip in lower SVC. New enteric some tube tip in the stomach with proximal side port below the GE junction. Unchanged prominent hazy and patchy airspace opacities bilaterally. Likely pulmonary vascular congestion. Dictated by Edvin Gunn MD @ 03/27/2021 12:03:34 PM (Electronically Signed)
--- NOTE | 2021-03-27 13:07 | PCM.DCSUM1 ---
Discharge Summary - Discharge Data Discharge Date: 03/27/21 Discharge Disposition: 20 Condition: - Referral to Home Health Primary Care Physician: PCP None - Patient Summary/Data Hospital Course: 45-year-old female who was admitted for acute hypoxic respiratory failure from COVID-19 pneumonia. She presented worsening shortness of breath and cough. In the ER, she was noted to be satting 60% on room air on arrival she was placed on nasal cannula and sats slowly increased to 70 and 80%. She was then increased to nonrebreather and oxygen saturations finally reached above 90%. Lab work reveals no leukocytosis hemoglobin 12.4 platelets 173,000. D-dimer mildly elevated at 0.73. Sodium 132 chloride 95 BUN and creatinine 8 and 0.7 respectively. Glucose 111 AST 73 ALT 60 alk phos 110 we will monitor these closely during treatment. Troponin negative CRP 11.9 COVID-19 swab positive. Chest x-ray obtained in the ER which reveals severe diffuse bilateral pneumonia and/or pulmonary edema Covid pneumonitis is not definite but possible CT angio obtained due to mildly elevated D-dimer and Covid positive no pulmonary embolism noted severe COVID-19 pneumonitis noted. Patient was treated with dexamethasone 10 mg IV in the ER along with remdesivir 200 mg. Patient will be admitted inpatient for acute hypoxic respiratory failure COVID-19 and viral pneumonia. She was transfered to the ICU due to low oxygen saturations. She was treated with dexamethasone, remdesivir, and baricitinib. She remained on heat high flow and CPAP intermittently for around [address] scan reported no PE. Today patient developed respiratory distress and was hypoxic. She was intubated and had central line and a-line placed. Patient continued to desat with high vent setting of FIO2 of 100% and PEEP of 20. She lost a pulse and multiple round of CPR were performed. Despite these efforts patient . I informed the in the [facility] waiting room. - Discharge Plan *PRESCRIPTION DRUG MONITORING PROGRAM REVIEWED*: Not Applicable *COPY OF PRESCRIPTION DRUG MONITORING REPORT IN PATIENT KEMI: Not Applicable Home Medications: Home Meds Acetaminophen [Tylenol] 03/15/21 [History] Mv,Calcium,Min/Iron/Folic/Vitk [Essential Woman Tablet] 1 each PO 03/15/21 [History] - Discharge Summary/Plan Comment DC Time >30 min.: Yes Total # of Minutes for Discharge Time: 60 - Patient Data Vitals - Most Recent: Last Vital Signs Temp 38.1 C 03/27/21 09:26 Pulse 125 H 03/21/21 03:46 Resp 36 H 03/27/21 08:00 BP 128/59 L 03/27/21 08:00 Pulse Ox 87 L 03/27/21 08:00 Weight - Most Recent: 131.4 kg I&O - Last 24 hours: Intake & Output 03/26/21 03/27/21 03/27/21 22:59 06:59 14:59 Intake Total 2250 600 Output Total 700 800 Balance 1550 -200 Lab Results - Last 24 hrs: Laboratory Results - last 24 hr 03/27/21 03/27/21 03/27/21 Range/Units 05:35 05:35 09:30 WBC 18.71 H (4.0-11.0) K/uL RBC 4.44 (4.30-5.90) M/uL Hgb 12.9 (12.0-16.0) g/dL Hct 39.4 (36.0-46.0) % MCV 88.7 (80.0-98.0) fL MCH 29.1 (27.0-32.0) pg MCHC 32.7 (31.0-37.0) g/dL RDW Std Deviation 46.4 (28.0-62.0) fl RDW Coeff of Sandeep 14 (11.0-15.0) % Plt Count 525 H (150-400) K/uL MPV 9.90 (7.40-12.00) fL Neut % (Auto) 82.9 H (48.0-80.0) % Lymph % (Auto) 11.7 L (16.0-40.0) % [place] % (Auto) 4.9 (0.0-15.0) % Eos % (Auto) 0.4 (0.0-7.0) % Baso % (Auto) 0.1 (0.0-1.5) % Neut # (Auto) 15.5 H (1.4-5.7) K/uL Lymph # (Auto) 2.2 (0.6-2.4) K/uL [place] # (Auto) 0.9 H (0.0-0.8) K/uL Eos # (Auto) 0.1 (0.0-0.7) K/uL Baso # (Auto) 0.0 (0.0-0.1) K/uL Nucleated RBC % 0.0 /100WBC Nucleated RBCs # 0 K/uL ABG pH 7.36 (7.35-7.45) ABG pCO2 50 H (35-45) mmHG ABG pO2 44 L (80-105) mmHG ABG HCO3 28 H (22-26) mEq/L ABG Total CO2 25.6 (23-27) mmol/L ABG Base Excess 1.7 (-2.0-3.0) Sodium 135 L (136-145) mmol/L Potassium 4.4 (3.5-5.1) mmol/L Chloride 98 (98-107) mmol/L Carbon Dioxide 27.6 (21.0-32.0) mmol/L BUN 18 (7.0-18.0) mg/dL Creatinine 0.7 (0.6-1.0) mg/dL Est Cr Clr Drug Dosing 77.39 mL/min Estimated GFR (MDRD) > 60.0 ml/min Glucose 84 (74-106) mg/dL Calcium 8.5 (8.5-10.1) mg/dL Phosphorus 4.7 (2.6-4.7) mg/dL Magnesium 2.1 (1.8-2.4) mg/dL Total Bilirubin 0.6 (0.2-1.0) mg/dL AST 44 H (15-37) IU/L ALT 47 (14-63) IU/L Alkaline Phosphatase 89 (46-116) U/L Total Protein 7.6 (6.4-8.2) g/dL Albumin 2.7 L (3.4-5.0) g/dL Globulin 4.9 H (2.6-4.0) g/dL Albumin/Globulin Ratio 0.6 L (0.9-1.6) Med Orders - Current: Current Medications Acetaminophen (Acetaminophen 325 Mg Tab) 650 mg PO Q4H PRN PRN Reason: Pain (Mild 1-3)/fever Last Admin: 03/27/21 09:26 Dose: 650 mg Documented by: Albuterol/Ipratropium (Albuterol/Ipratropium 3.0-0.5 Mg/3 Ml Neb Soln) 3 ml NEB Q4HRRT [facility] Last Admin: 03/27/21 09:11 Dose: 3 ml Documented by: Benzonatate (Benzonatate 100 Mg Cap) 100 mg PO Q4H PRN PRN Reason: cough Last Admin: 03/27/21 08:56 Dose: 100 mg Documented by: Dexamethasone (Dexamethasone 10 Mg/Ml Sdv) 10 mg IVPUSH DAILY [facility] Last Admin: 03/27/21 08:57 Dose: 10 mg Documented by: Docusate Sodium (Docusate Sodium 100 Mg Cap) 100 mg PO BID PRN PRN Reason: Constipation Last Admin: 03/23/21 18:22 Dose: 100 mg Documented by: Enoxaparin Sodium (Enoxaparin 40 Mg/0.4 Ml Syringe) 40 mg SUBCUT Q12HR [facility] Last Admin: 03/27/21 08:57 Dose: 40 mg Documented by: Guaifenesin/Codeine Phosphate (Codeine/Guaifenesin 10-100 Mg/5 Ml Syrup 5 Ml Cup) 10 ml PO Q4H PRN PRN Reason: Cough Last Admin: 03/27/21 08:56 Dose: 10 ml Documented by: Azithromycin 500 mg/ Sodium (Chloride) 250 mls @ 250 mls/hr IV Q24H [facility] Piperacillin Sod/Tazobactam (Sod 3.375 gm/ Sodium Chloride) 50 mls @ 100 mls/hr IV Q6H [facility] Norepinephrine Bitartrate (Norepinephr-0.9% Nacl 4 Mg/250) 4 mg in 250 mls @ 7.5 mls/hr IV TITRATE [facility]; Protocol Propofol (Diprivan 50 Ml) 100 mls @ 3.942 mls/hr IV TITRATE [facility]; Protocol Fentanyl Citrate 2,500 mcg/ (Premix) 250 mls @ 13.14 mls/hr IV TITRATE [facility]; Protocol Midazolam HCl 50 mg/ Sodium (Chloride) 50 mls @ 0.5 mls/hr IV TITRATE [facility]; Protocol Pantoprazole Sodium 40 mg/ (Sodium Chloride) 10 mls @ 300 mls/hr IV Q24H [facility] Norepinephrine Bitartrate (Norepinephr-0.9% Nacl 4 Mg/250) 4 mg in 250 mls @ 7.5 mls/hr IV TITRATE [facility]; Protocol Midazolam HCl (Midazolam 1 Mg/Ml 2 Ml Sdv) 1 mg IVPUSH ONETIME PRN PRN Reason: Agitation Last Admin: 03/27/21 10:05 Dose: 1 mg Documented by: Ondansetron HCl (Ondansetron 4 Mg/2 Ml Sdv) 4 mg IVPUSH Q4H PRN PRN Reason: Nausea Last Admin: 03/18/21 01:17 Dose: 4 mg Documented by: Promethazine HCl/Codeine (Codeine/Promethazine 10-6.25 Mg/5 Ml Syrup 5 Ml Ud Syringe) 5 ml PO Q4HR [facility] Last Admin: 03/27/21 08:56 Dose: 5 ml Documented by: Sodium Chloride (Sodium Chloride 0.9% 2.5 Ml Syringe) 2.5 ml FLUSH ASDIRECTED PRN PRN Reason: Keep Vein Open Discontinued Medications Albuterol/Ipratropium (Albuterol/Ipratropium 4 Gm Inhalation [place]) 0 gm INH Q4HRRT [facility] Last Admin: 03/19/21 05:59 Dose: Not Given Documented by: Albuterol/Ipratropium (Albuterol/Ipratropium 3.0-0.5 Mg/3 Ml Neb Soln) 3 ml NEB Q4H PRN PRN Reason: Shortness of Breath Last Admin: 03/19/21 05:56 Dose: 3 ml Documented by: Albuterol/Ipratropium (Albuterol/Ipratropium 3.0-0.5 Mg/3 Ml Neb Soln) 3 ml NEB Q4HRRT PRN PRN Reason: SHORTNESS OF BREATH Dexamethasone (Dexamethasone 10 Mg/Ml Sdv) 10 mg IVPUSH ONETIME ONE Stop: 03/15/21 11:11 Last Admin: 03/15/21 11:35 Dose: 10 mg Documented by: Dexamethasone (Dexamethasone 4 Mg Tab) 6 mg PO DAILY@1400 [facility] Last Admin: 03/18/21 14:17 Dose: 6 mg Documented by: Furosemide (Furosemide 20 Mg/2 Ml Vial) 20 mg IVPUSH NOW ONE Stop: 03/18/21 19:08 Last Admin: 03/18/21 19:47 Dose: 20 mg Documented by: Furosemide (Furosemide 40 Mg/4 Ml Vial) 40 mg IVPUSH NOW ONE Stop: 03/19/21 06:33 Last Admin: 03/19/21 07:24 Dose: 40 mg Documented by: Guaifenesin/Codeine Phosphate (Codeine/Guaifenesin 10-100 Mg/5 Ml Syrup 5 Ml Cup) 5 ml PO Q6H PRN PRN Reason: Cough Stop: 03/19/21 04:20 Last Admin: 03/17/21 08:52 Dose: 5 ml Documented by: Remdesivir 200 mg/ Sodium (Chloride) 250 mls @ 250 mls/hr IV ONETIME ONE Stop: 03/15/21 13:59 Last Admin: 03/15/21 14:28 Dose: 250 mls/hr Documented by: Remdesivir 100 mg/ Sodium (Chloride) 100 mls @ 100 mls/hr IV Q24H [facility] Stop: 03/19/21 14:59 Last Admin: 03/19/21 13:10 Dose: 100 mls/hr Documented by: Iopamidol (Iopamidol 755 Mg/Ml 500 Ml Multipack Bottle) 100 ml IVPUSH ONETIME ONE Stop: 03/15/21 13:29 Last Admin: 03/15/21 13:30 Dose: 100 ml Documented by: Iopamidol (Iopamidol 755 Mg/Ml 500 Ml Multipack Bottle) 100 ml IVPUSH ONETIME STA Stop: 03/23/21 15:04 Last Admin: 03/23/21 15:04 Dose: 100 ml Documented by: Lorazepam (Lorazepam 2 Mg/Ml Sdv) 1 mg IVPUSH ONETIME ONE Stop: 03/18/21 23:26 Last Admin: 03/19/21 00:14 Dose: 1 mg Documented by: Lorazepam (Lorazepam 2 Mg/Ml Sdv) 1 mg IVPUSH ONETIME ONE Stop: 03/27/21 08:51 Last Admin: 03/27/21 09:24 Dose: 1 mg Documented by: Midazolam HCl (Midazolam 1 Mg/Ml 2 Ml Sdv) 1 mg IVPUSH ONETIME STA Stop: 03/27/21 11:12 Last Admin: 03/27/21 11:15 Dose: 1 mg Documented by: Morphine Sulfate (Morphine 2 Mg/Ml Syringe) 2 mg IVPUSH ONETIME ONE Stop: 03/19/21 06:33 Last Admin: 03/19/21 07:26 Dose: 2 mg Documented by: Discharge Operative/Procedures - Procedures Performed Intubation Indication: Respiratory Failure, Other (Covid pneumonia)
--- NOTE | 2021-03-27 14:22 | PN ---
THC Physician - Brief Progress [id number]/08/2021 12:01[facility] Deion Acosta, [place] - MWN (ALEXISN) - MWN MICK GASPAR COVID+Date of Service 03/27/2021 12:01HPI/Ev ents of Note eICU Event NoteNursing staff was actively working on obtaining the Levophed and obtainin g the art line, when pt became bradycardic to 37. I gave 0.5 of Atropine and requested an EKG. HR imp roved to 55, then decreased to 40 again. EKG demonstrated 1st degree AVB per Dr. Roa at bedside. I gave a repeat dose of Atropine 0.5 and requested 1 of epi to support BP while they were awaiting Levo phed gtt. We were subsequently unable to obtain a BP with the cuff and her QRS widened. Pulse check r evealed she was in PEA. Chest compressions were intiiated accordingly and ACLS protocol was followed. She received three shocks during code for going intoor V fib and was given Amio. Despite maximal eff ort, she again went into PEA . BG was > 250, she had B/L breath sounds and post-intubation CXR did no t demonstrate PTX, we gave an amp of bicarb in case she became acidotic prior to code, K was 4.4 and we added a PEEP valve to the BVM to assist with supporting her pressures during bagging. Family was c ontacted and on their way in when pt started bleeding deonte blood through the ETT. As a team we revie wed to see if anyone had any other ideas to support her, did two more rounds of CPR and collectively confirmed that we sould call the code. TOD was called at [address] Roa. Post-code debrief was de clined and eICU team exited the room. Thank you for allowing us to participate in the care of your p atient.Interventions Major-Arrhythmia - evaluation and management, Code management/supervision, Hypot ension - evaluation and management, Hypoxemia - evaluation and management, Respiratory failure - eval uation and wkjwxozqjqQblrjojscnxy-Dmyj-cylofdpe therapies (e.g. VTE, beta randa, etc.), Bleeding - evaluation and treatment with blood products, Communication with other healthcare providers and/or fernie riggins, Medication change / dose adjustment
--- NOTE | 2021-03-27 14:22 | PN ---
[facility] Physician - Brief Progress [id number]/08/2021 11:27[facility] Deion Ac[place], [place] - KIKIN (MONTSE) - GRACE MICK GASPAR COVID+Date of Service 03/27/2021 11:27HPI/Ev ents of Note eICU Event NotePt was just intubated by the bedside for a RR in the 50's. Post-intubatio n her SpO2 was 75%. We discussed plan of care with RT and bedside nurse Amanda. After discussion we im plemented the followin) Increase HOB to 30-45 degrees2) Change vent settings from SIMV to CMV with a Vt of 350, RR of 24, PEEP of 20 and FiO2 of 100%3) Place a line4) Initiate Levophed at 10 mcgs to support BP with increased sedation5) Check CXR and ABG With movement of the abdomen off of the chest, SpO2 improved to the mid 80's. We will follow up to ensure HR and SpO2 improve with the changes abov e. Thank you for allowing us to participate in the care of your patient.Interventions Major-Airway ma nagement, Hypotension - evaluation and management, Hypoxemia - evaluation and management, Infection - evaluation and management, Respiratory failure - evaluation and gdsghhtdcuFirfivxypjvy-Iaqp-tpfxzknx therapies (e.g. VTE, beta randa, etc.), Communication with other healthcare providers and/or famil y, Medication change / dose adjustment 12 :41
--- NOTE | 2021-03-28 19:08 | PCM.EKG ---
#1 Interpretation EKG Date: 03/15/21 Time: 11:30 Rhythm: NSR Rate (Beats/Min): 74 ST-T: Normal
== END 2021-03-27 17:15 | disposition expired | DRG 208 ==
LOC: MW.ED 10:47 → MW.MS 12:49 → MW.ICU 03-16 00:15 → MW.MS 03-17 17:52 → MW.ICU 03-19 04:27
PROVIDERS: ADMIT Internal Medicine; ATTEND Internal Medicine
PROC: XW033E5 Introduction of Remdesivir Anti-infective into Peripheral Vein, Percutaneous Approach, New Technology Group 5 (ICD-10-PCS; principal; 2021-03-15)
PROC: 3E0333Z Introduction of Anti-inflammatory into Peripheral Vein, Percutaneous Approach (ICD-10-PCS; 2021-03-15)
PROC: XW0DXM6 Introduction of Baricitinib into Mouth and Pharynx, External Approach, New Technology Group 6 (ICD-10-PCS; 2021-03-15)
PROC: 5A09557 Assistance with Respiratory Ventilation, Greater than 96 Consecutive Hours, Continuous Positive Airway Pressure (ICD-10-PCS; 2021-03-15)
PROC: 5A0955A Assistance with Respiratory Ventilation, Greater than 96 Consecutive Hours, High Flow/Velocity Cannula (ICD-10-PCS; 2021-03-15)
PROC: 5A1935Z Respiratory Ventilation, Less than 24 Consecutive Hours (ICD-10-PCS; 2021-03-27)
PROC: 0BH17EZ Insertion of Endotracheal Airway into Trachea, Via Natural or Artificial Opening (ICD-10-PCS; 2021-03-27)
PROC: 02HV33Z Insertion of Infusion Device into Superior Vena Cava, Percutaneous Approach (ICD-10-PCS; 2021-03-27)
PROC: 5A12012 Performance of Cardiac Output, Single, Manual (ICD-10-PCS; 2021-03-27)
DX: U07.1 COVID-19 (principal); J96.01 Acute respiratory failure with hypoxia; J12.82 Pneumonia due to coronavirus disease 2019; Z68.44 Body mass index [BMI] 60.0-69.9, adult; E87.2 Acidosis; E66.01 Morbid (severe) obesity due to excess calories; I44.0 Atrioventricular block, first degree; I46.9 Cardiac arrest, cause unspecified; I49.01 Ventricular fibrillation; Z87.11 Personal history of peptic ulcer disease; Z85.819 Personal history of malignant neoplasm of unspecified site of lip, oral cavity, and pharynx; Z87.891 Personal history of nicotine dependence
CPT/HCPCS: 31500; 36415; 36556; 36600; 51702; 71045; 71045-26; 71275; 71275-26; 80048; 80053; 82248; 82803; 83605; 83690; 83735; 84100; 84145; 84484; 85025; 85027; 85379; 86140; 93005; 94002; 94640; 94660; 96374; 99291; A9270-GY; J0171; J0330; J1100; J1650; J1940; J2060; J2250; J2270; J2405; J3490; J7050; J7620-GY; J8540; Q9967; U0002